=== PATIENT | female | born 1955 | race African-American/Black ===

== ENCOUNTER 2016-06-21 09:05 | Inpatient (IN) ==
[2016-06-21] MEDS ORDERED: MAGNESIUM SULF RIDER 2 GM in PREMIX 1 EACH IV PRN ×2 (09:11→14:25)
[2016-06-21] MEDS ORDERED: MAGNESIUM SULF RIDER 4 GM in PREMIX 1 EACH IV PRN ×2 (09:11→14:25)
[2016-06-21] MEDS ORDERED: ACETAMINOPHEN 325 MG TABLET PO PRN (09:11)
[2016-06-21] MEDS ORDERED: ZALEPLON 5 MG CAPSULE PO PRN (09:11)
[2016-06-21] MEDS ORDERED: ONDANSETRON 4 MG/2 ML VIAL IV PRN (09:11)
[2016-06-21 12:32] LABS: Basophils % 0.5 % (0.0-0.8); Eosinophils # 0.1 10*3/uL (0.0-0.87); Eosinophils % 1.9 % (0.00-10.9); Hematocrit 45.4 VOL% (35.7-47.0); Hemoglobin 14.6 GM/DL (12.0-16.0); Immature Granulocytes % 0.3 %; Immature Granulocytes Absolute 0.01 #; Lymphocytes # 1.4 10*3/uL (1.4-4.0); Mean Corpuscular HGB Conc 32.2 GM/DL (32-36); Mean Corpuscular Hemoglobin 27 PG (27-34); Mean Corpuscular Volume 83.3 FL (87-102); Mean Platelet Volume 9.8 FL (9.6-12.0); Monocytes # 0.5 10*3/uL (0.11-0.8); Monocytes % 13.6 % (1.7-12.7); Neutrophils # 1.6 10*3/uL (1.4-7.4); Neutrophils % 44.7 % (38.7-73.9); Platelet Count 174 T/CUMM (130-400); Red Blood Count 5.45 MC/CUMM (3.8-5.5); Red Cell Distribution Width 16.5 % (9.3-17.3); White Blood Count 3.7 T/CUMM (4-12)
--- NOTE | 2016-06-21 13:11 | XRay Report ---
XR chest 2V Indication: Shortness of breath. Chest 2 views: Comparison 05/02/2016. Small bilateral pleural effusions are unchanged from the prior exam. There is continued reticular prominence of the lung travis diffusely, without focal infiltrate present. Bibasilar atelectasis persists. Cardiomegaly, prosthetic mitral valve and postoperative changes median sternotomy are stable. Impression: Overall no change from 05/02/2016. Favor chronic or recurrent CHF with stable small bilateral pleural effusions. PROCEDURE INTERPRETED AT [facility] DEPARTMENT OF RADIOLOGY Final Report Signed by: Zeke Pacheco M.D.
[2016-06-21 13:17] LABS: Calcium 9.1 MG/DL (8.5-10.1); Magnesium 1.6 MG/DL (1.8-2.4); Osmolality,Calculated 278.3 MOS/KG (273-304); Potassium 3.7 MMOL/L (3.5-5.1); Thyroid Stimulating Hormone 1.18 uIU/ml (0.358-3.74)
--- NOTE | 2016-06-21 14:39 | Cardiology History & Physical ---
Assessment and Plan - Time spent with patient Time spent with patient: Greater than 30 minutes (1) History of mitral valve replacement with bioprosthetic valve Status: Chronic Assessment and plan: SEE CURRENT PLAN OF CARE LISTED BELOW Current Visit: Yes (2) Ischemic dilated cardiomyopathy Status: Chronic Assessment and plan: SEE CURRENT PLAN OF CARE LISTED BELOW Current Visit: Yes (3) CHF (congestive heart failure), NYHA class IV Status: Acute Assessment and plan: SEE CURRENT PLAN OF CARE LISTED BELOW Current Visit: Yes Qualifiers: Congestive heart failure type: systolic Congestive heart failure chronicity : acute on chronic Qualified Code(s): I50.23 - Acute on chronic systolic ( congestive) heart failure (4) COPD (chronic obstructive pulmonary disease) Status: Chronic Assessment and plan: SEE CURRENT PLAN OF CARE LISTED BELOW Current Visit: Yes (5) Dyslipidemia Status: Chronic Assessment and plan: SEE CURRENT PLAN OF CARE LISTED BELOW Current Visit: Yes (6) Atrial fibrillation Status: Chronic Assessment and plan: SEE CURRENT PLAN OF CARE LISTED BELOW Current Visit: No Qualifiers: Atrial fibrillation type: paroxysmal Qualified Code(s): I48.0 - Paroxysmal atrial fibrillation (7) Coronary artery disease Status: Chronic Assessment and plan: SEE CURRENT PLAN OF CARE LISTED BELOW Current Visit: No Qualifiers: Coronary Disease-Associated Artery/Lesion type: [place] artery [place] vs. transplanted heart: [place] heart Associated angina: without angina Qualified Code(s): I25.10 - Atherosclerotic heart disease of [place] coronary artery without angina pectoris (8) Pleural effusion Status: Chronic Assessment and plan: SEE CURRENT PLAN OF CARE LISTED BELOW Current Visit: Yes History of Present Illness Chief complaint: acute on chronic congestive heart failure History of present illness: Ms. Schmidt is a 61 year old female routinely followed by Dr. Gerber. Risk factors include: Known coronary artery disease dyslipidemia. She has a history of chronic atrial fibrillation, ischemic cardiomyopathy (EF 10%), COPD, chronic congestive heart failure, non-rheumatic mitral regurgitation now status post mitral valve replacement. Patient was seen in Dr. Gerber's office today and she's been directly admitted from his clinic. She has been having symptoms of acute congestive heart failure. She has been escalating her diuretics, added Zaroxolyn recently but continued to have severe dyspnea, and swelling of her lower extremities and orthopnea. Patient underwent mitral valve replacement in July [address] Torres. Since that surgery she has done poorly. She's had a persistent pleural effusion (left) at which point Dr. Gerber actually performed a thoracentesis twice to see performed heart. At one point, she required a Pleurx drain for approximately 5 months until the draining halted. At this point, after being evaluated in Dr. Gerber's office she's been directed to telemetry here at [facility]. She's had 4 pillow orthopnea. Although her edema seems to be better today she reports at one point it was extending up into her abdomen. At this point it is too her pelvis area to her toes. She is having some shortness of breath. She denies having chest pain, heaviness or tightness. She does have jugular vein distention of 6 cm to the jaw. ASSESSMENT/PLAN: 1. CHF - acute on chronic congestive heart failure secondary to severely reduced LVEF, 10%. Heart Association classification IV. She is been hospitalized on telemetry unit where she will receive IV Lasix, oral Zaroxolyn and may consider addition of spironolactone. Strict intake and output, daily weights will be reported. She is taking a low-dose LUCERO inhibitor and low-dose beta too. I will order an echocardiogram as in the past she has had a pericardial effusion and we' ll verify this is not reaccumulated. 2. ICM - EF 10%. 3. CAD - S/P CABG 07/07/2015 RODRIGUEZ to [facility]. (Heart catheterization July 2015 revealed 3 vessel coronary artery disease with suboptimal targets for revascularization). 4. DYSLIPIDEMIA - continue lipid-lowering agent. 5. EDEMA - suspect this is all fluid however we'll check venous ultrasound bilateral extremity as she has had left lower extremity edema greater than right 6. PAF - history paroxysmal atrial fibrillation. She is maintained on aspirin in the past for stroke prevention. She has a prior history of anemia. We can monitor this during the hospital stay and may consider adding something more potent stroke prevention 7. COPD - continue home medications including Combivent 8. S/P MITRAL VALVE REPLACEMENT (TISSUE VALVE) - patient had severe mitral regurgitation. She underwent valve replacement 07/07/2015. 9. BILATERAL PLEURAL EFFUSIONS - component of this is definitely chronic pleural effusions. In the past, the left is been greater than the right. We' ll continue with diuresing and monitor accordingly. Home Medications Medication Instructions Recorded Confirmed Type Ferrous Sulfate 325 mg PO DAILY 06/15/15 09/28/15 History Colchicine 0.6 mg PO BID 08/23/15 09/28/15 History Multivitamin (Ocuvite) [Ocuvite] 1 tablet PO DAILY 08/23/15 09/28/15 History Aspirin EC Tab 81 mg PO DAILY tablet 08/26/15 09/28/15 Rx Lisinopril [Prinivil] 2.5 mg PO DAILY #30 tablet 08/26/15 09/28/15 Rx Pantoprazole Tab [Protonix Tab] 40 mg PO DAILY tablet 08/26/15 09/28/15 Rx Docusate Sodium Cap [Colace Cap] 100 mg PO DAILY 09/28/15 09/28/15 History Allergies Allergy/AdvReac Type Severity Reaction Status Date / Time No Known Allergies Allergy Verified 06/15/15 16:14 Review of systems: REVIEW OF SYSTEMS: - Constitutional Constitutional: Present: Fatigue. Absent: syncope, anorexia, night sweats - EENT Eyes: Absent: blurry vision, loss of vision, diplopia Ears: Absent: decreased hearing, ear pain, ear discharge - Cardiovascular Cardiovascular: Denies chest pain with exertion. Acknowledges orthopnea, shortness of breath at rest and with exertion, denies palpitations. Edema to her abdomen recently. Now edema has improved but persists and extends from her pelvic area to toes. Denies palpitations. - Respiratory Respiratory: Present: FISH, 4 pillow orthopnea. Denies cough Absent: wheezing, hemoptysis, change in phlegm color - Gastrointestinal Gastrointestinal: Denies constipation. Absent: abdminal pain, hematemesis, hematochezia, melena, change in bowel habits, nausea - Genitourinary Genitourinary: Absent: difficulty urinating, dysuria, urinary hesitancy, flank pain - Musculoskeletal Musculoskeletal: Present: back pain Absent: joint swelling, muscle cramps, muscle weakness - Neurological Neurological: Present: normal gait without frequent falls. Absent: dizziness, hemiparesis - Psychiatric Psychiatric: Absent: anxiety, depression, difficulty concentrating - Endocrine Endocrine: Present: fatigue. Absent: cold intolerance, heat intolerance, polyuria, polyphagia, polydipsia - Hematologic/Lymphatic Hematologic/Lymphatic: Present: easy bruising. Absent: easy bleeding, easy bruisability -Integumentary Integumentary: Absent: lesions, rashes, skin breakdown Medical,Surgical,& Family Hx - Medical History Cardio: History of: Cardiac Dysrhythmia (a fib), CHF, CAD, Hypertension, Valvular Heart Disease Neurology: History of: Brain Aneurysm (2000), Cerebrovascular Accident (2000) No history of: Seizures Rheumatology: History of;: Gout Respiratory: History of: Respiratory Problems (thoracentesis 09/28/2015) Hematology: History of: Anemia - Surgical History Cardiac Surgeries: Sugical HX of: Cardiac Surgery (CABG and MVR 07/2015) Neurologic Surgeries: Surgical HX of: Brain Aneurysm (2000), Neurologic Surgery (brain aneurism repair in [place] 2002) Reproductive Surgeries: Surgical HX of;: Hysterectomy - Family History Family History: Reports;: Family Cancer, Family Diabetes, Family Heart Disease, Family Hypertension - Social History Smoking Status: Current every day smoker Frequency of Alcohol Use: None Marital Status: Lives With:: Spouse Functional capacity: independent ambulation Cardiology Physical Exam - Constitutional Vitals: Vital Signs Temp Pulse Resp BP Pulse Ox 97 F L 92 H 20 103/77 98 06/21/16 12:21 06/21/16 12:21 06/21/16 12:21 06/21/16 12:21 06/21/16 12:21 Intake and Output 06/20/16 06/21/16 06/21/16 23:59 07:59 15:59 Other: Weight 58.967 kg Patient Weight 06/21/16 23:59 Weight 58.967 kg Exam: General: Appears well with no apparent distress. Pleasant and cooperative. Appears comfortable. HEENT: PERRL, normocephalic, atraumatic. Mucous membranes moist. No jaundice noted. Conjunctiva moist and clear, sclerae anicteric Neck: 6 cm JVD/HJR, no thyromegaly or lymphadenopathy noted. No carotid bruit appreciated Cardiac: Irregularly irregular rhythm. Soft HSM heard best at 5ICS left. Lungs: Respiratory crackles noted in the bases posteriorly. Mild end expiratory wheezes noted. Using oxygen intermittently Abdomen: Soft, bowel sounds normoactive. Nontender and nondistended. No abdominal bruit or thrill noted. No masses noted. Musculoskeletal: No fluid collection. Decreased range of motion is noted. Extremities: No clubbing, cyanosis noted. 3+ pitting edema lower extremities extending to her pelvic area 1+. Capillary refill less than 3 seconds. Skin: No unusual lesions or rashes. No skin breakdown appreciated. Neuro: Awake, alert and oriented 3. Moves all extremities well without hemiparesis or paralysis. No essential tremor is appreciated. Result/EKG - Labs CBC & BMP: 06/21/16 12:26 06/21/16 12:26 Lab Results: I have reviewed the past 24 hour labs Labs: Laboratory Results - last 24 hr 06/21/16 06/21/16 06/21/16 12:26 12:26 12:26 WBC 3.7 L RBC 5.45 Hgb 14.6 Hct 45.4 MCV 83.3 L MCH 27 MCHC 32.2 RDW 16.5 Plt Count 174 MPV 9.8 Neut % (Auto) 44.7 Lymph % (Auto) 39.0 [place] % (Auto) 13.6 H Eos % (Auto) 1.9 Baso % (Auto) 0.5 Neut # (Auto) 1.6 Lymph # (Auto) 1.4 [place] # (Auto) 0.5 Eos # (Auto) 0.1 Baso # (Auto) 0.0 Immature Gran % 0.3 Nucleated RBC % 0.0 Immature Gran # 0.01 Nucleated RBCs # 0.00 Sodium 141 Potassium 3.7 Chloride 99 Carbon Dioxide 33 H Anion Gap 12.7 BUN 10 Creatinine 0.90 GFR Calculation 0 BUN/Creatinine Ratio 11.00 Glucose 85 Calculated Osmolality 278.3 Calcium 9.1 Magnesium 1.6 L B-Natriuretic Peptide Free T4 1.17 TSH 3rd Generation 1.180 06/21/16 12:26 WBC RBC Hgb Hct MCV MCH MCHC RDW Plt Count MPV Neut % (Auto) Lymph % (Auto) [place] % (Auto) Eos % (Auto) Baso % (Auto) Neut # (Auto) Lymph # (Auto) [place] # (Auto) Eos # (Auto) Baso # (Auto) Immature Gran % Nucleated RBC % Immature Gran # Nucleated RBCs # Sodium Potassium Chloride Carbon Dioxide Anion Gap BUN Creatinine GFR Calculation BUN/Creatinine Ratio Glucose Calculated Osmolality Calcium Magnesium B-Natriuretic Peptide 2969 H Free T4 TSH 3rd Generation - Diagnostic Findings Procedure: Chest x-ray: report reviewed by me - EKG EKG results: interpreted by me EKG shows: atrial fibrillation
[2016-06-21] MEDS ORDERED: INFLUENZA VIRUS VACCINE 0.5 ML SYRINGE IM ONE (15:00)
--- NOTE | 2016-06-21 15:24 | Ultrasound Report ---
History: Bilateral lower extremity edema Date: 06/21/2016 Study: Bilateral lower extremity color-flow venous Doppler study Comparison exam: No previous Color Doppler, wave form analysis, and compression analysis of the deep veins of both lower extremities from the common femoral vein level through the popliteal vein level shows that the veins are readily compressible. There is no abnormal intraluminal material to suggest thrombus. Waveform analysis is unremarkable. Ultrasound images were captured and archived Impression: No evidence of deep venous thrombosis. No focal abnormality seen PROCEDURE INTERPRETED AT [facility] DEPARTMENT OF RADIOLOGY Final Report Signed by: Dr. Hali Dennis
[2016-06-21] MEDS: FUROSEMIDE 40 MG/4 ML VIAL IV SCH (15:40)
[2016-06-21] MEDS ORDERED: FUROSEMIDE 40 MG/4 ML VIAL IV SCH (16:00)
[2016-06-21 16:32] LABS: Apearance,Urine CLEAR (Clear); Bilirubin,Urine Negative (Negative); Blood, Urine Negative (Negative); Glucose,Urine (UA) Negative (Negative); Hyaline Casts,Urine 3 /LPF (0-3); Ketones,Urine Negative (Negative); Nitrite,Urine Negative (Negative); Protein,Urine Negative; RBC,Urine <1 /HPF (0-4); Squamous Epithelial Cell,Urine Occasional /HPF (0-10); Urine Color Straw (Yellow); Urine Specific Gravity 1.005 (1.001-1.035); Urine Urobilinogen < 2.0 EU/DL (0.2-1.0); WBC,Urine 1 /HPF (0-6)
--- NOTE | 2016-06-21 17:18 | ECHO Report ---
Philly Schmidt Exam Date: 06/21/2016 13:09 Referring Physician: Technologist: Julianne Hollins RDCS Age: 61 Ht (in): Wt (lb): Gender: F Exam Location: [facility] Echo Indications: MVR - pericardial prothesis, CXR - small bilateral pleural effusions, Cardiomegaly, Shortness of breath, Cardiomyopathy, unspecified BP: / HR: Rhythm: Sinus Technical Quality: Good IMPRESSIONS Moderate to severe increased left ventricular cavity size. Mild left ventricular hypertrophy. Left ventricular ejection fraction is estimated at 10 - 15 %. Moderately decreased right ventricular systolic function. Mildly increased right ventricular size. Moderately increased right atrial size. Moderately increased left atrial size. Prosthetic mitral valve mean gradient is 5 mmHg at a heart rate of 45 bpm[bioprosthesis]. Trace to mild mitral valve regurgitation. Aortic valve sclerosis without stenosis. Trace aortic valve regurgitation. [id number] tricuspid valve regurgitation. Tricuspid regurgitation velocities suggest a PAP of 57 mmHg. Mild pulmonary valve regurgitation. Trivial pericardial effusion. MEASUREMENTS (Male / Female) Normal Values 2D ECHO LV Diastolic Diameter PLAX 6.2 cm 4.2 - 5.9 / 3.9 - 5.3 cm LV Systolic Diameter PLAX 6.2 cm LV Fractional Shortening PLAX 0.0 % IVS Diastolic Thickness 1.1 cm 0.6 - 1.0 / 0.6 - 0.9 cm LVPW Diastolic Thickness 1.1 cm 0.6 - 1.0 / 0.6 - 0.9 cm RV Internal Dim ED PLAX 4.1 cm Aortic Root Diameter 2.9 cm LA Systolic Diameter LX 4.8 cm 3.0 - 4.0 / 2.7 - 3.8 cm DOPPLER TR Peak Velocity 341.0 cm/s TR Peak Gradient 46.5 mmHg FINDINGS Left Ventricle Moderate to severe increased left ventricular cavity size. Mild left ventricular hypertrophy. Left ventricular ejection fraction is estimated at 10 - 15 %. Right Ventricle Mildly increased right ventricular size.moderately decreased right ventricular systolic function. Right Atrium Moderately increased right atrial size. Left Atrium Moderately increased left atrial size. Mitral Valve Prosthetic mitral valve mean gradient is 5 mmHg at a heart rate of 45 bpm[bioprosthesis]. Trace to mild mitral valve regurgitation. Aortic Valve Aortic valve sclerosis without stenosis. Trace aortic valve regurgitation. Tricuspid Valve Morphologically normal tricuspid valve. [id number] tricuspid valve regurgitation. Tricuspid regurgitation velocities suggest a PAP of 57 mmHg. Pulmonic Valve Morphologically normal pulmonic valve. Mild pulmonary valve regurgitation. Pericardium Trivial pericardial effusion. Aorta Normal ascending aorta dimension. Lucas Haro MD (Electronically Signed) Final Date: 21 June 2016 17:17
[2016-06-21] MEDS ORDERED: DOCUSATE SODIUM 100 MG CAPSULE PO SCH (21:00)
[2016-06-21] MEDS: CARVEDILOL 3.125 MG TABLET PO SCH (21:55)
[2016-06-21] MEDS: COLCHICINE 0.6 MG TABLET PO SCH (21:56)
[2016-06-21] MEDS: POTASSIUM CHLORIDE 20 MEQ TABLET PO SCH (21:56)
[2016-06-21] MEDS ORDERED: BACLOFEN 10 MG TABLET PO ONE (23:24)
[2016-06-21] MEDS ORDERED: BACLOFEN 10 MG TABLET PO PRN (23:26)
[2016-06-22 06:17] LABS: Basophils % 0.9 % (0.0-0.8); Eosinophils # 0.1 10*3/uL (0.0-0.87); Eosinophils % 1.8 % (0.00-10.9); Hematocrit 43.5 VOL% (35.7-47.0); Immature Granulocytes % 0.3 %; Immature Granulocytes Absolute 0.01 #; Lymphocytes # 1.1 10*3/uL (1.4-4.0); Lymphocytes % 33.6 % (21.3-54.2); Mean Corpuscular HGB Conc 32.2 GM/DL (32-36); Mean Corpuscular Hemoglobin 27 PG (27-34); Mean Corpuscular Volume 84.1 FL (87-102); Mean Platelet Volume 9.9 FL (9.6-12.0); Monocytes # 0.5 10*3/uL (0.11-0.8); Monocytes % 13.6 % (1.7-12.7); Neutrophils # 1.7 10*3/uL (1.4-7.4); Neutrophils % 49.8 % (38.7-73.9); Platelet Count 145 T/CUMM (130-400); Red Blood Count 5.17 MC/CUMM (3.8-5.5); Red Cell Distribution Width 16.6 % (9.3-17.3); White Blood Count 3.4 T/CUMM (4-12)
[2016-06-22 06:39] LABS: Elliptocytes Few; Hypochromasia 1+; Platelet Estimate Normal
[2016-06-22 08:24] LABS: Calcium 8.4 MG/DL (8.5-10.1); Free T4 (Free Thyroxine) 1.2 NG/DL (0.76-1.46); Magnesium 1.9 MG/DL (1.8-2.4); Osmolality,Calculated 281.1 MOS/KG (273-304); Potassium 4.1 MMOL/L (3.5-5.1); Thyroid Stimulating Hormone 0.779 uIU/ml (0.358-3.74)
[2016-06-22] MEDS ORDERED: HYDROmorphone 2 MG/1 ML VIAL IV PRN (09:00)
[2016-06-22] MEDS ORDERED: LISINOPRIL 2.5 MG TABLET PO SCH (09:00)
[2016-06-22] MEDS ORDERED: PANTOPRAZOLE 40 MG TABLET PO SCH (09:00)
[2016-06-22] MEDS: MULTIVITAMIN (OCUVITE) TABLET PO SCH (09:22)
[2016-06-22] MEDS: ASPIRIN EC 81 MG TABLET PO SCH (09:22)
[2016-06-22] MEDS: CARVEDILOL 3.125 MG TABLET PO SCH ×2 (09:22→21:57)
[2016-06-22] MEDS: FERROUS SULFATE 325 MG TABLET PO SCH (09:22)
[2016-06-22] MEDS: COLCHICINE 0.6 MG TABLET PO SCH ×2 (09:22→21:58)
[2016-06-22] MEDS: PANTOPRAZOLE 40 MG TABLET PO SCH (09:22)
[2016-06-22] MEDS: DOCUSATE SODIUM 100 MG CAPSULE PO SCH (09:22)
[2016-06-22] MEDS: ENOXAPARIN 40 MG/0.4 ML SYRINGE SUBCUT SCH ×2 (09:23→12:56)
[2016-06-22] MEDS: POTASSIUM CHLORIDE 20 MEQ TABLET PO SCH ×2 (09:23→21:57)
[2016-06-22] MEDS: FUROSEMIDE 40 MG/4 ML VIAL IV SCH ×2 (10:07→16:59)
[2016-06-22] MEDS ORDERED: NICOTINE 14 MG/24 HR PATCH TRANSDERM SCH (10:30)
[2016-06-22] MEDS: metOLazone 5 MG TABLET PO SCH (13:17)
[2016-06-22] MEDS: LISINOPRIL 2.5 MG TABLET PO SCH (13:19)
[2016-06-22] MEDS: buPROPion 75 MG TABLET PO SCH ×2 (13:24→21:58)
--- NOTE | 2016-06-22 15:36 | Cardiology Progress Note ---
Shelbie Chase April RN, am scribing for, and in the presence of, Lucas Haro MD 15:32. Assessment and Plan (1) Systolic CHF Status: Acute Current Visit: Yes (2) CHF (congestive heart failure), NYHA class IV Status: Acute Current Visit: Yes Qualifiers: Congestive heart failure type: systolic Congestive heart failure chronicity : acute on chronic Qualified Code(s): I50.23 - Acute on chronic systolic ( congestive) heart failure (3) COPD (chronic obstructive pulmonary disease) Status: Chronic Current Visit: Yes (4) Dyslipidemia Status: Chronic Current Visit: Yes (5) History of mitral valve replacement with bioprosthetic valve Status: Chronic Assessment and plan: Mitral valve replacement using a 27 mm pericardial prosthesis and coronary bypass grafting with the left internal mammary graft placed to the anterior descending coronary artery as a free graft. This was done 07/07/15. Current Visit: Yes (6) Ischemic dilated cardiomyopathy Status: Chronic Assessment and plan: EF 10-15% by ECHO 06/21/16. Current Visit: Yes (7) Pleural effusion Status: Chronic Current Visit: Yes (8) Atrial fibrillation Status: Chronic Current Visit: No Qualifiers: Atrial fibrillation type: paroxysmal Qualified Code(s): I48.0 - Paroxysmal atrial fibrillation (9) Coronary artery disease Status: Chronic Current Visit: No Qualifiers: Coronary Disease-Associated Artery/Lesion type: [place] artery [place] vs. transplanted heart: [place] heart Associated angina: without angina Qualified Code(s): I25.10 - Atherosclerotic heart disease of [place] coronary artery without angina pectoris (10) Smoker Status: Acute Current Visit: Yes (11) Severe mitral regurgitation Status: Acute Current Visit: No (12) Bioprosthetic mitral valve replacement, current hospitalization Status: Chronic Current Visit: No (13) Cardiomyopathy Status: Chronic Current Visit: No (14) Hypotension Status: Resolved Current Visit: No Cardiology - PN: Subj Interval history: Seen today on telemetry unit, she is routinely followed by Dr. Figueroa. She has a history of chronic atrial fibrillation, ischemic cardiomyopathy, COPD, chronic congestive heart failure, she is status post mitral valve replacement in July 2015. Since her valve replacement, she has had a persistent pleural effusion and has had thoracentesis twice, and at one point required a drain for about 5 months until the draining stopped. She was direct admitted from Dr. Figueroa's office yesterday after she presented with severe dyspnea, swelling of her lower extremities, and orthopnea. ECHO done yesterday with EF 10-15%. Venous dopplers of her lower extremities were negative. Today she reports her swelling is improved. She denies any shortness of breath, but also tells me that she did not have any shortness of breath yesterday. She does not appear dyspneic today. She denies any chest pain or palpitations. She does report having some dizziness. Her blood pressures have been low, and we are decreasing her dose of lisinopril. Her kidney function and electrolytes are stable and the diuretics appear to be helping so we will continue those for now. She continues to smoke nearly a pack of cigarettes a day. Discussed cessation with her and she requested meds and/or a patch to help, Bupropion po and Nicotine patch initiated. Exam (Progress Note) - Constitutional Vitals: Period Temp Pulse Resp BP Sys/Bower Pulse Ox Last 24 Hr 97.3 F-98.9 F 70-92 17-20 77-107/47-69 94-96 General appearance: no acute distress - Head Head exam: Absent: abrasion, hematoma - Neck Neck exam: Absent: tenderness - Respiratory Respiratory exam: Present: clear to auscultation bilaterally, other (using oxygen intermittently). Absent: accessory muscle use, chest wall tenderness - Cardiovascular Cardiovascular exam: Present: irregular rhythm - GI/Abdominal GI/Abdominal exam: Present: normal bowel sounds, soft. Absent: distended, tenderness - Extremities Exam Extremities exam: Present: edema (1+ to ble) - Neurological Exam Neurological exam: Present: alert, oriented X3 - Psychiatric Psychiatric exam: Present: normal affect, normal mood - Skin Skin exam: Present: warm, dry Result/EKG - Labs CBC & BMP: 06/22/16 05:29 06/22/16 05:29 Lab Results: I have reviewed the past 24 hour labs Labs: Laboratory Results - last 24 hr 06/21/16 06/21/16 06/21/16 12:26 12:26 Unknown WBC RBC Hgb Hct MCV MCH MCHC RDW Plt Count MPV Neut % (Auto) Lymph % (Auto) [place] % (Auto) Eos % (Auto) Baso % (Auto) Neut # (Auto) Lymph # (Auto) [place] # (Auto) Eos # (Auto) Baso # (Auto) Immature Gran % Nucleated RBC % Immature Gran # Nucleated RBCs # Platelet Estimate Hypochromasia Elliptocytes Sodium 141 Potassium 3.7 Chloride 99 Carbon Dioxide 33 H Anion Gap 12.7 BUN 10 Creatinine 0.90 GFR Calculation 0 BUN/Creatinine Ratio 11.00 Glucose 85 Calculated Osmolality 278.3 Calcium 9.1 Magnesium 1.6 L B-Natriuretic Peptide 2969 H Free T4 TSH 3rd Generation 1.180 Urine Color Straw Urine Appearance Clear Urine pH 5.0 Ur Specific [place] 1.005 Urine Protein Negative Urine Glucose (UA) Negative Urine Ketones Negative Urine Blood Negative Urine Nitrate Negative Urine Bilirubin Negative Urine Urobilinogen < 2.0 H Urine Leukocytes Negative Urine RBC <1 Urine WBC 1 Ur Squamous Epith Cells Occasional Hyaline Casts 3 Ur Culture Indicated? Not indicated 06/22/16 06/22/16 06/22/16 05:29 05:29 05:29 WBC 3.4 L RBC 5.17 Hgb 14.0 Hct 43.5 MCV 84.1 L MCH 27 MCHC 32.2 RDW 16.6 Plt Count 145 MPV 9.9 Neut % (Auto) 49.8 Lymph % (Auto) 33.6 [place] % (Auto) 13.6 H Eos % (Auto) 1.8 Baso % (Auto) 0.9 H Neut # (Auto) 1.7 Lymph # (Auto) 1.1 L [place] # (Auto) 0.5 Eos # (Auto) 0.1 Baso # (Auto) 0.0 Immature Gran % 0.3 Nucleated RBC % 0.0 Immature Gran # 0.01 Nucleated RBCs # 0.00 Platelet Estimate Normal Hypochromasia 1+ Elliptocytes Few Sodium 142 Potassium 4.1 Chloride 103 Carbon Dioxide 25 Anion Gap 18.1 H BUN 12 Creatinine 0.90 GFR Calculation 75 BUN/Creatinine Ratio 13.00 Glucose 76 Calculated Osmolality 281.1 Calcium 8.4 L Magnesium 1.9 B-Natriuretic Peptide 1315 H Free T4 1.20 TSH 3rd Generation 0.779 Urine Color Urine Appearance Urine pH Ur Specific [place] Urine Protein Urine Glucose (UA) Urine Ketones Urine Blood Urine Nitrate Urine Bilirubin Urine Urobilinogen Urine Leukocytes Urine RBC Urine WBC Ur Squamous Epith Cells Hyaline Casts Ur Culture Indicated? - EKG EKG results: interpreted by tx EKG shows: atrial fibrillation ITahir Dale, MD, personally performed the services described in this documentation, ascribed by Marah Morfin RN in my presence, and it is both accurate and complete 532 .
[2016-06-23 05:46] LABS: Albumin 2.9 G/DL (3.4-5.0); Bilirubin,Total 0.9 MG/DL (0.2-1.0); Calcium 8.2 MG/DL (8.5-10.1); Osmolality,Calculated 282.1 MOS/KG (273-304); Potassium 3.9 MMOL/L (3.5-5.1); Total Protein 5.9 G/DL (6.4-8.3)
--- NOTE | 2016-06-23 10:53 | Discharge Summary ---
Hospital Course - Hospital Course Hospital Course: Ms. Schmidt is a 61 year old female routinely followed by Dr. Figueroa. Risk factors include: Known coronary artery disease dyslipidemia. She has a history of chronic atrial fibrillation, ischemic cardiomyopathy (EF 10%), COPD, chronic congestive heart failure, non-rheumatic mitral regurgitation now status post mitral valve replacement. Patient was seen in Dr. Figueroa's office 06/21/2016 where she was evaluated and felt as if she needed to be admitted to the hospital. She had complaints concerning for acute worsening of her congestive heart failure. She had been escalating her diuretics, Zaroxolyn had recently been initiated as well. ECHO done June with EF 10-15%. Venous dopplers of her lower extremities were negative. Patient diuresed well during the hospital stay. This morning, having felt that maximal medical therapy, she's been discharged home in stable condition. She diuresed well with IV Lasix. Having tells met maximal medical therapy, patient is being discharged home in stable condition. His been given a 2 week follow-up appointment with Dr. Gerber. At that visit on labs be obtained, BMP, magnesium and CBC. Discharge meds include the following changes: Lasix increased from 40 mg daily to 40 mg twice a day. Lisinopril was decreased due to hypotension. Zaroxolyn was changed from daily dosing to 5 mg every Sunday, Sunday and Sunday. Spironolactone discontinued as she was expecting some hypotension seemed to respond better to Lasix. - Time spent with patient Time with patient DS: Greater than 30 minutes Diagnosis - Discharge Diagnosis (1) History of mitral valve replacement with bioprosthetic valve Status: Chronic (2) Ischemic dilated cardiomyopathy Status: Chronic (3) CHF (congestive heart failure), NYHA class IV Status: Resolved (4) COPD (chronic obstructive pulmonary disease) Status: Chronic (5) Dyslipidemia Status: Chronic (6) Atrial fibrillation Status: Chronic (7) Coronary artery disease Status: Chronic (8) Pleural effusion Status: Chronic Specialty Discharge - Follow Up or Referrals Follow up with: Carina Figueroa DO [Physician] - 2 Weeks (BMP, Mg, CBC) Discharge Plan - Discharge Data Disposition: Disch To Home/Self Care Condition at Discharge: Stable Discharge Diet: heart healthy Activity: resume usual activities as tolerated Hygiene: no restrictions Weight Bearing at Discharge: full weight bearing Driving: not until seen by doctor Contact your physician if you experience:: fever over 101, Difficulty voiding, Redness or swelling, Nausea/Vomiting, Shortness of breath, Bleeding, pain uncontrolled by pain medications - Discharge Medications New buPROPion [Wellbutrin] 75 mg PO BID tablet Baclofen Tab [Lioresal] 5 mg PO TID PRN #30 tablet PRN Reason: Muscle Spasm Colchicine [Colcrys] 0.6 mg PO BID #30 tablet Furosemide 40 mg PO BID #60 tablet Nicotine 14 mg/24 Hr Patch [Nicoderm CQ 14 mg/24 hr Patch] 1 patch TRANSDERM DAILY #30 patch metOLazone [Zaroxolyn] 5 mg PO DIRECTED #12 tablet Continue Ferrous Sulfate 325 mg PO DAILY Aspirin EC Tab 81 mg PO DAILY tablet Lisinopril [Prinivil] 2.5 mg PO DAILY #30 tablet Docusate Sodium Cap [Colace Cap] 100 mg PO DAILY Montelukast Tab [Singulair Tab] 10 mg PO BEDTIME Carvedilol 3.125 mg PO BID Cyproheptadine Tab [Periactin Tab] 4 mg PO TID W/MEALS Discontinued Furosemide [Furosemide] 40 mg PO DAILY Spironolactone 12.5 mg PO DAILY - Follow Up or Referral - Forms/Instructions Exam - Constitutional Vitals: Period Temp Pulse Resp BP Sys/Bower Pulse Ox Last 24 Hr 96.0 F-97.8 F 82-91 16-20 81-121/61-68 94-96 Exam: General: Appears well with no apparent distress. Pleasant and cooperative. Appears comfortable. HEENT: PERRL, normocephalic, atraumatic. Mucous membranes moist. No jaundice noted. Conjunctiva moist and clear, sclerae anicteric Neck: Difficult to assess for JVD due to habitus. No carotid bruit appreciated Cardiac: Irregularly irregular rhythm. No murmur rub or gallop. Lungs: Lungs relatively clear without accessory muscle use to assist the respiratory pattern. Not requiring oxygen. Abdomen: Soft, bowel sounds normoactive. Nontender and nondistended. No abdominal bruit or thrill noted. No masses noted. Musculoskeletal: No fluid collection. Decreased range of motion is noted. Extremities: No clubbing, cyanosis noted. No edema noted. Upper extremity pulses 2+. Lower extremity pulses 2+. Capillary refill less than 3 seconds. Skin: No unusual lesions or rashes. No skin breakdown appreciated. Neuro: Awake, alert and oriented 3. Moves all extremities well without hemiparesis or paralysis. No essential tremor is appreciated. Discharge Results Labs on day of discharge: Labs from last 24 hours 06/23/16 04:40 Sodium 142 Potassium 3.9 Chloride 101 Carbon Dioxide 33 H Anion Gap 11.9 BUN 14 Creatinine 0.80 GFR Calculation 86 BUN/Creatinine Ratio 17.00 Glucose 76 Calculated Osmolality 282.1 Calcium 8.2 L Total Bilirubin 0.90 AST 11 ALT 14 Alkaline Phosphatase 85 Total Protein 5.9 L Albumin 2.9 L Globulin 3.0 Albumin/Globulin Ratio 0.9 L - Imaging and Cardiology Cardiology Procedure: report reviewed by Procedure: Chest x-ray: report reviewed by DS: Provider Date of admission: 06/21/16 11:37 Primary care physician: Austin Cartwright Attending physician on admission: Carina Figueroa DO Discharging clinician: Jacque Acevedo NP Expected date of discharge: 06/23/16
[2016-06-23] MEDS: FUROSEMIDE 40 MG/4 ML VIAL IV SCH (11:00)
[2016-06-23] MEDS: POTASSIUM CHLORIDE 20 MEQ TABLET PO SCH (11:02)
[2016-06-23] MEDS: COLCHICINE 0.6 MG TABLET PO SCH (11:02)
[2016-06-23] MEDS: buPROPion 75 MG TABLET PO SCH (11:03)
[2016-06-23] MEDS: ASPIRIN EC 81 MG TABLET PO SCH (11:03)
[2016-06-23] MEDS: FERROUS SULFATE 325 MG TABLET PO SCH (11:03)
[2016-06-23] MEDS: DOCUSATE SODIUM 100 MG CAPSULE PO SCH (11:04)
[2016-06-23] MEDS: MULTIVITAMIN (OCUVITE) TABLET PO SCH (11:04)
[2016-06-23] MEDS: CARVEDILOL 3.125 MG TABLET PO SCH (11:04)
[2016-06-23] MEDS: PANTOPRAZOLE 40 MG TABLET PO SCH (11:04)
[2016-06-23] MEDS: ENOXAPARIN 40 MG/0.4 ML SYRINGE SUBCUT SCH (11:06)
[2016-06-23 12:25] VITALS: BP 97/70
[2016-06-23] MEDS: LISINOPRIL 2.5 MG TABLET PO SCH (12:51)
[2016-06-23] MEDS: metOLazone 5 MG TABLET PO SCH (12:51)
== END 2016-06-23 13:25 | disposition home or self-care (01) | DRG 292 ==
LOC: N.TELEN 11:37
PROVIDERS: ADMIT Internal Medicine Cardiovascular Disease; ATTEND Internal Medicine Cardiovascular Disease

== ENCOUNTER 2016-09-20 11:23 | Inpatient (IN) ==
[2016-09-20] MEDS ORDERED: ONDANSETRON 4 MG/2 ML VIAL IV PRN (13:43)
[2016-09-20] MEDS ORDERED: ACETAMINOPHEN 325 MG TABLET PO PRN (13:43)
[2016-09-20] MEDS ORDERED: POTASSIUM CHLORIDE RIDER 10 MEQ in PREMIX 1 EACH IV PRN (13:43)
[2016-09-20] MEDS ORDERED: MAGNESIUM SULF RIDER 4 GM in PREMIX 1 EACH IV PRN (13:43)
[2016-09-20] MEDS ORDERED: MAGNESIUM SULF RIDER 2 GM in PREMIX 1 EACH IV PRN (13:43)
[2016-09-20] MEDS ORDERED: ZALEPLON 5 MG CAPSULE PO PRN (13:43)
[2016-09-20] MEDS ORDERED: DOCUSATE SODIUM 100 MG CAPSULE PO PRN (13:43)
[2016-09-20] MEDS ORDERED: NITROGLYCERIN SL 0.4 MG TABLET SL PRN (14:04)
[2016-09-20 14:44] LABS: Basophils % 0.2 % (0.0-0.8); Eosinophils % 0.8 % (0.00-10.9); Hematocrit 31.7 VOL% (35.7-47.0); Hemoglobin 10.3 GM/DL (12.0-16.0); Immature Granulocytes % 0.2 %; Immature Granulocytes Absolute 0.01 #; Lymphocytes # 0.8 10*3/uL (1.4-4.0); Mean Corpuscular HGB Conc 32.5 GM/DL (32-36); Mean Corpuscular Hemoglobin 28 PG (27-34); Mean Corpuscular Volume 85.4 FL (87-102); Mean Platelet Volume 9.4 FL (9.6-12.0); Monocytes # 0.4 10*3/uL (0.11-0.8); Monocytes % 8.5 % (1.7-12.7); NRBC # 0.03 10*3/uL; Neutrophils # 3.9 10*3/uL (1.4-7.4); Neutrophils % 74.3 % (38.7-73.9); Platelet Count 177 T/CUMM (130-400); Red Blood Count 3.71 MC/CUMM (3.8-5.5); Red Cell Distribution Width 17.8 % (9.3-17.3); White Blood Count 5.2 T/CUMM (4-12)
[2016-09-20 15:10] LABS: Troponin I Only 0.129 NG/ML (0.00-0.045)
[2016-09-20] MEDS: FUROSEMIDE 40 MG/4 ML VIAL IV SCH (15:10)
[2016-09-20] MEDS: CARVEDILOL 3.125 MG TABLET PO SCH ×2 (15:11→22:08)
[2016-09-20 15:14] LABS: Albumin 3.7 G/DL (3.4-5.0); Bilirubin,Total 0.9 MG/DL (0.2-1.0); Calcium 8.7 MG/DL (8.5-10.1); Potassium 4.4 MMOL/L (3.5-5.1); Thyroid Stimulating Hormone 0.396 uIU/ml (0.358-3.74); Total Protein 6.6 G/DL (6.4-8.3)
--- NOTE | 2016-09-20 15:26 | EKG Report ---
Stationary ECG Study [facility] Test Date: 09/20/2016 2:31:16 PM Pat Name: ESTUARDO FUNG Department: Room: 266 Gender: F Pattern Puncher: IRINA : 1955 Requested by: Jacque Moore Order Number: [id number] Reading MD: ANTONOI LUGO Intervals [place] Rate: 93 P: 56 ND: 162 QRS: 7 QRSD: 102 T: 191 QT: 347 QTc: 397 Interpretive Statements SINUS RHYTHM WITH OCCASIONAL SUPRAVENTRICULAR PREMATURE COMPLEXES LEFT ATRIAL ENLARGEMENT ST DEVIATION AND MODERATE T-WAVE ABNORMALITY, CONSIDER INFERIOR ISCHEMIA INTERPRETATION BASED ON A DEFAULT AGE OF 40 YEARS Electronically Signed On 09-20-16 18:44:50 CDT by ANTONIO LUGO [id number]
--- NOTE | 2016-09-20 16:02 | XRay Report ---
XR chest 2V Indication: Shortness of breath Comparison: 21 June 2016 Findings: The heart and mediastinum are stable in size and configuration with cardiac surgery changes. The pulmonary vascularity is normal in caliber. Lung volumes are increased with prominent bronchial markings. Small right and moderate left pleural effusions are present, similar findings were seen on previous studies. No other lung infiltrates, effusions, pneumothorax or other abnormality is demonstrated. Impression: Chronic lung and cardiac surgery changes. Bilateral pleural effusions and/or pleural thickening, similar to previous exam. No significant change. PROCEDURE INTERPRETED AT [facility] DEPARTMENT OF RADIOLOGY Final Report Signed by: Dr. Fernando Chow
[2016-09-20] MEDS: ALBUTEROL/IPRATROPIUM 3 ML NEB RESP TX SCH (19:26)
[2016-09-20] MEDS: MONTELUKAST 10 MG TABLET PO SCH (22:08)
[2016-09-20 22:29] LABS: Troponin I Only 0.123 NG/ML (0.00-0.045)
[2016-09-21 05:47] LABS: Basophils % 0.4 % (0.0-0.8); Eosinophils # 0.1 10*3/uL (0.0-0.87); Eosinophils % 2.2 % (0.00-10.9); Hematocrit 32.7 VOL% (35.7-47.0); Hemoglobin 10.8 GM/DL (12.0-16.0); Immature Granulocytes % 0.4 %; Immature Granulocytes Absolute 0.02 #; Lymphocytes # 1.1 10*3/uL (1.4-4.0); Lymphocytes % 22.5 % (21.3-54.2); Mean Corpuscular Hemoglobin 28 PG (27-34); Mean Corpuscular Volume 85.4 FL (87-102); Mean Platelet Volume 9.6 FL (9.6-12.0); Monocytes # 0.6 10*3/uL (0.11-0.8); Monocytes % 12.2 % (1.7-12.7); Neutrophils # 3.1 10*3/uL (1.4-7.4); Neutrophils % 62.3 % (38.7-73.9); Platelet Count 195 T/CUMM (130-400); Red Blood Count 3.83 MC/CUMM (3.8-5.5); Red Cell Distribution Width 17.7 % (9.3-17.3); White Blood Count 4.9 T/CUMM (4-12)
[2016-09-21 06:21] LABS: Albumin 3.6 G/DL (3.4-5.0); Bilirubin,Total 0.8 MG/DL (0.2-1.0); Calcium 8.5 MG/DL (8.5-10.1); Osmolality,Calculated 282.1 MOS/KG (273-304); Potassium 4.2 MMOL/L (3.5-5.1); Risk Ratio 3.17; Total Protein 6.6 G/DL (6.4-8.3); VLDL CHOLESTEROL 21.8 MG/DL
[2016-09-21 06:32] LABS: Troponin I Only 0.131 NG/ML (0.00-0.045)
[2016-09-21] MEDS: ALBUTEROL/IPRATROPIUM 3 ML NEB RESP TX SCH ×4 (07:21→19:04)
--- NOTE | 2016-09-21 08:48 | EKG Report ---
Stationary ECG Study [facility] Test Date: 09/21/2016 7:20:04 AM Pat Name: ESTUARDO FUNG Department: Room: 266 Gender: F Sharepoint Analyst: IRINA : 1955 Requested by: Jacque Moore Order Number: [id number] Reading MD: HI WELSH Intervals [place] Rate: 81 P: 67 LA: 163 QRS: 53 QRSD: 99 T: 201 QT: 360 QTc: 397 Interpretive Statements SINUS RHYTHM POSSIBLE LEFT ATRIAL ENLARGEMENT ST DEVIATION AND MODERATE T-WAVE ABNORMALITY, CONSIDER INFERIOR ISCHEMIA Electronically Signed On 09-21-16 11:33:12 CDT by HI WELSH [email or web address]
[2016-09-21] MEDS: CARVEDILOL 3.125 MG TABLET PO SCH ×2 (09:13→21:20)
[2016-09-21] MEDS: FERROUS SULFATE 325 MG TABLET PO SCH (09:13)
[2016-09-21] MEDS: prednisoLONE 5 MG TABLET PO SCH (09:13)
[2016-09-21] MEDS: DOCUSATE SODIUM 100 MG CAPSULE PO SCH (09:13)
[2016-09-21] MEDS: ASPIRIN 325 MG TABLET PO SCH (09:13)
[2016-09-21] MEDS: PANTOPRAZOLE 40 MG TABLET PO SCH (09:13)
[2016-09-21] MEDS: FUROSEMIDE 40 MG/4 ML VIAL IV SCH (09:13)
[2016-09-21] MEDS: DIGOXIN 0.125 MG TABLET PO SCH (12:50)
--- NOTE | 2016-09-21 12:55 | Cardiology Progress Note ---
Blas Chase Vanessa, RN, am scribing for, and in the presence of, Jacque Acevedo NP 12:52. <Jacque Acevedo - Last Filed: 09/21/16 12:37> Assessment and Plan - Time spent with patient Time spent with patient: Greater than 30 minutes (1) Ischemic cardiomyopathy Status: Chronic Assessment and plan: SEE PLAN OF CARE LISTED BELOW Current Visit: Yes (2) Non-compliance Status: Acute Assessment and plan: SEE PLAN OF CARE LISTED BELOW Current Visit: Yes (3) Atrial fibrillation Status: Chronic Assessment and plan: SEE PLAN OF CARE LISTED BELOW Current Visit: No Qualifiers: Atrial fibrillation type: paroxysmal Qualified Code(s): I48.0 - Paroxysmal atrial fibrillation (4) Coronary artery disease Status: Chronic Assessment and plan: SEE PLAN OF CARE LISTED BELOW Current Visit: No Qualifiers: Coronary Disease-Associated Artery/Lesion type: [place] artery [place] vs. transplanted heart: [place] heart Associated angina: without angina Qualified Code(s): I25.10 - Atherosclerotic heart disease of [place] coronary artery without angina pectoris (5) Bioprosthetic mitral valve replacement, current hospitalization Status: Chronic Assessment and plan: SEE PLAN OF CARE LISTED BELOW Current Visit: No (6) Dyslipidemia Status: Chronic Assessment and plan: SEE PLAN OF CARE LISTED BELOW Current Visit: No Cardiology - PN: Subj Interval history: PRIMARY TOOL DESIGNER: DR. BRENDA VELEZ Ms. Schmidt is a 61 year old black female who is routinely followed by cardiology. Past medical history includes stage IV ischemic cardiomyopathy, CAD , CVA, COPD, acute on chronic combined systolic and diastolic congestive heart failure, dyslipidemia, hypertension, and chronic atrial fibrillation. History of mitral valve replacement (tissue valve). Patient was directly admitted to telemetry floor on 09/20/16 from [facility] after being evaluated as a work in for complaints of chest pain. In the clinic, she complained of intermittent chest pain with radiation to the left arm, increasing dyspnea over the past week , and cough 2 weeks. It is noted that she had not taken her Lasix, Lisinopril , or Metolazone in approximately 6 weeks. Patient was noted to be tachypneic during exam and complained of increasing orthopnea and fatigue at home. SEPTEMBER 21, 2016: This morning, patient sitting on side of bed and breathing much easier. Overnight she has lost 3 kg. Lung sounds are much improved with scant crackles noted in the left posterior base. Blood pressures much improved. She denies chest pain, heaviness or tightness. Troponins are flat at 0.123-0.131. Of note, she has chronically elevated troponins and these results are the lowest her troponins have been since June 2015. [facility] abnormal. She continues to take aspirin, low-dose beta blockade,. Will initiate lipid-lowering agent as her LDL is 122. Blood pressure will not allow for introduction of an LUCERO inhibitor at this point. She continues to receive IV Lasix 80 mg twice daily. Will transition to oral dosing starting this evening. Hopefully, should the patient continued to improve, she may be eligible for discharge in the morning. ASSESSMENT/PLAN: 1. ACUTE ON CHRONIC CHF - secondary to systolic dysfunction (EF 10%) and diastolic dysfunction. Initially, NYHA Class IV, this morning improved to NYHA Class II-III. Continue with diuresis, strict I&O and daily weights. 2. ICM - continue current plan of care 3. DYSLIPIDEMIA - LDL 122. Restart lipid lowering agent 4. S/P MITRAL VALVE REPLACEMENT (TISSUE VALVE) - continue plan of care. 5. PAROXYSMAL ATRIAL FIBRILLATION - history of anemia and not previously considered as candidate for anti-coagulation. 6. NON-COMPLIANCE - reiterated importance on medication compliance. 7. CAD - no complaints of angina 7. CHRONICALLY ELEVATED TROPONIN - this is not NSTEMI Exam (Progress Note) - Constitutional Vitals: Period Temp Pulse Resp BP Sys/Bower Pulse Ox Last 24 Hr 96.9 F-98.4 F 71-101 16-20 107-146/64-82 92-98 Exam: General: [Appears well with no apparent distress.] [Pleasant and cooperative. ] [Appears comfortable.] HEENT: [PERRL, normocephalic, atraumatic. Mucous membranes moist. No jaundice noted. Conjunctiva moist and clear, sclerae anicteric] Neck: No JVD/HJR, no thyromegaly or lymphadenopathy noted. No carotid bruit appreciated Cardiac: [Regular rate and rhythm.] [No murmur rub or gallop.] Lungs: [Left posterior base noted to have expiratory crackles. ] Using oxygen intermittently Abdomen: Soft, bowel sounds normoactive. Nontender and nondistended. No abdominal bruit or thrill noted. No masses noted. Musculoskeletal: No fluid collection. Decreased range of motion is noted. Extremities: No clubbing, cyanosis noted. [ No edema noted.] Upper extremity pulses 2+. Lower extremity pulses 2+. Capillary refill less than 3 seconds. Skin: No unusual lesions or rashes. No skin breakdown appreciated. Neuro: Awake, alert and oriented 3. Moves all extremities well without hemiparesis or paralysis. No essential tremor is appreciated. Result/EKG - Labs CBC & BMP: 09/21/16 05:05 09/21/16 05:05 Lab Results: I have reviewed the past 24 hour labs Labs: Laboratory Results - last 24 hr 09/20/16 09/20/16 09/20/16 14:33 14:33 14:33 WBC 5.2 RBC 3.71 L Hgb 10.3 L Hct 31.7 L MCV 85.4 L MCH 28 MCHC 32.5 RDW 17.8 H Plt Count 177 MPV 9.4 L Neut % (Auto) 74.3 H Lymph % (Auto) 16.0 L [place] % (Auto) 8.5 Eos % (Auto) 0.8 Baso % (Auto) 0.2 Neut # (Auto) 3.9 Lymph # (Auto) 0.8 L [place] # (Auto) 0.4 Eos # (Auto) 0.0 Baso # (Auto) 0.0 Immature Gran % 0.2 Nucleated RBC % 0.6 Immature Gran # 0.01 Nucleated RBCs # 0.03 Sodium 143 Potassium 4.4 Chloride 109 H Carbon Dioxide 27 Anion Gap 11.4 BUN 12 Creatinine 0.90 GFR Calculation 75 BUN/Creatinine Ratio 13.00 Glucose 139 H Calculated Osmolality 286.0 Calcium 8.7 Total Bilirubin 0.90 AST 18 ALT 25 Alkaline Phosphatase 106 Total Creatine Kinase 60 CK-MB (CK-2) 2.1 Troponin I 0.129 H Total Protein 6.6 Albumin 3.7 Globulin 2.9 Albumin/Globulin Ratio 1.2 Triglycerides Cholesterol LDL Cholesterol VLDL Cholesterol HDL Cholesterol Heart Disease Risk Ratio TSH 3rd Generation 0.396 09/20/16 09/21/16 09/21/16 21:45 05:05 05:05 WBC 4.9 RBC 3.83 Hgb 10.8 L Hct 32.7 L MCV 85.4 L MCH 28 MCHC 33.0 RDW 17.7 H Plt Count 195 MPV 9.6 Neut % (Auto) 62.3 Lymph % (Auto) 22.5 [place] % (Auto) 12.2 Eos % (Auto) 2.2 Baso % (Auto) 0.4 Neut # (Auto) 3.1 Lymph # (Auto) 1.1 L [place] # (Auto) 0.6 Eos # (Auto) 0.1 Baso # (Auto) 0.0 Immature Gran % 0.4 Nucleated RBC % 0.0 Immature Gran # 0.02 Nucleated RBCs # 0.00 Sodium Potassium Chloride Carbon Dioxide Anion Gap BUN Creatinine GFR Calculation BUN/Creatinine Ratio Glucose Calculated Osmolality Calcium Total Bilirubin AST ALT Alkaline Phosphatase Total Creatine Kinase 67 55 CK-MB (CK-2) 1.8 2.1 Troponin I 0.123 H 0.131 H Total Protein Albumin Globulin Albumin/Globulin Ratio Triglycerides Cholesterol LDL Cholesterol VLDL Cholesterol HDL Cholesterol Heart Disease Risk Ratio TSH 3rd Generation 09/21/16 05:05 WBC RBC Hgb Hct MCV MCH MCHC RDW Plt Count MPV Neut % (Auto) Lymph % (Auto) [place] % (Auto) Eos % (Auto) Baso % (Auto) Neut # (Auto) Lymph # (Auto) [place] # (Auto) Eos # (Auto) Baso # (Auto) Immature Gran % Nucleated RBC % Immature Gran # Nucleated RBCs # Sodium 142 Potassium 4.2 Chloride 105 Carbon Dioxide 31 Anion Gap 10.2 BUN 11 Creatinine 0.80 GFR Calculation 86 BUN/Creatinine Ratio 13.00 Glucose 113 H Calculated Osmolality 282.1 Calcium 8.5 Total Bilirubin 0.80 AST 19 ALT 24 Alkaline Phosphatase 126 H Total Creatine Kinase CK-MB (CK-2) Troponin I Total Protein 6.6 Albumin 3.6 Globulin 3.0 Albumin/Globulin Ratio 1.2 Triglycerides 109 Cholesterol 203 H LDL Cholesterol 122.0 VLDL Cholesterol 21.8 HDL Cholesterol 64 H Heart Disease Risk Ratio 3.17 TSH 3rd Generation - Diagnostic Findings Procedure: Chest x-ray: report reviewed by me - EKG EKG results: interpreted by me, no acute changes EKG shows: sinus rhythm <Angel Whitehead - Last Filed: 09/21/16 16:02> Cardiology - PN: Subj Interval history: This patient was admitted with an exacerbation of congestive heart failure which is markedly improved with intravenous diuresis. Hopefully she will be ready for discharge tomorrow. We will switch her over to p.o. medicines and reassess in the a.m. Exam (Progress Note) - Constitutional Vitals: Period Temp Pulse Resp BP Sys/Bower Pulse Ox Last 24 Hr 97.6 F-98.4 F 71-88 16-20 107-146/64-82 92-99 Result/EKG - Labs CBC & BMP: 09/21/16 05:05 09/21/16 05:05 Labs: Laboratory Results - last 24 hr 09/20/16 09/21/16 09/21/16 21:45 05:05 05:05 WBC 4.9 RBC 3.83 Hgb 10.8 L Hct 32.7 L MCV 85.4 L MCH 28 MCHC 33.0 RDW 17.7 H Plt Count 195 MPV 9.6 Neut % (Auto) 62.3 Lymph % (Auto) 22.5 [place] % (Auto) 12.2 Eos % (Auto) 2.2 Baso % (Auto) 0.4 Neut # (Auto) 3.1 Lymph # (Auto) 1.1 L [place] # (Auto) 0.6 Eos # (Auto) 0.1 Baso # (Auto) 0.0 Immature Gran % 0.4 Nucleated RBC % 0.0 Immature Gran # 0.02 Nucleated RBCs # 0.00 Sodium Potassium Chloride Carbon Dioxide Anion Gap BUN Creatinine GFR Calculation BUN/Creatinine Ratio Glucose Calculated Osmolality Calcium Total Bilirubin AST ALT Alkaline Phosphatase Total Creatine Kinase 67 55 CK-MB (CK-2) 1.8 2.1 Troponin I 0.123 H 0.131 H Total Protein Albumin Globulin Albumin/Globulin Ratio Triglycerides Cholesterol LDL Cholesterol VLDL Cholesterol HDL Cholesterol Heart Disease Risk Ratio 09/21/16 09/21/16 05:05 14:05 WBC RBC Hgb Hct MCV MCH MCHC RDW Plt Count MPV Neut % (Auto) Lymph % (Auto) [place] % (Auto) Eos % (Auto) Baso % (Auto) Neut # (Auto) Lymph # (Auto) [place] # (Auto) Eos # (Auto) Baso # (Auto) Immature Gran % Nucleated RBC % Immature Gran # Nucleated RBCs # Sodium 142 Potassium 4.2 Chloride 105 Carbon Dioxide 31 Anion Gap 10.2 BUN 11 Creatinine 0.80 GFR Calculation 86 BUN/Creatinine Ratio 13.00 Glucose 113 H Calculated Osmolality 282.1 Calcium 8.5 Total Bilirubin 0.80 AST 19 ALT 24 Alkaline Phosphatase 126 H Total Creatine Kinase 54 CK-MB (CK-2) 2.0 Troponin I 0.125 H Total Protein 6.6 Albumin 3.6 Globulin 3.0 Albumin/Globulin Ratio 1.2 Triglycerides 109 Cholesterol 203 H LDL Cholesterol 122.0 VLDL Cholesterol 21.8 HDL Cholesterol 64 H Heart Disease Risk Ratio 3.17 Kristina Chase Bonnie E, NP, personally performed the services described in this documentation, ascribed by Rita Odonnell RN in my presence, and it is both accurate and complete .
[2016-09-21 14:39] LABS: Troponin I Only 0.125 NG/ML (0.00-0.045)
[2016-09-21] MEDS: FUROSEMIDE 80 MG TABLET PO SCH (17:00)
[2016-09-21] MEDS: MONTELUKAST 10 MG TABLET PO SCH (21:20)
[2016-09-21] MEDS: ATORVASTATIN 40 MG TABLET PO SCH (21:20)
[2016-09-22 05:33] LABS: Basophils % 0.3 % (0.0-0.8); Eosinophils # 0.2 10*3/uL (0.0-0.87); Eosinophils % 2.8 % (0.00-10.9); Hematocrit 32.7 VOL% (35.7-47.0); Hemoglobin 10.6 GM/DL (12.0-16.0); Immature Granulocytes % 0.5 %; Immature Granulocytes Absolute 0.03 #; Lymphocytes # 1.1 10*3/uL (1.4-4.0); Lymphocytes % 19.7 % (21.3-54.2); Mean Corpuscular HGB Conc 32.4 GM/DL (32-36); Mean Corpuscular Hemoglobin 28 PG (27-34); Mean Corpuscular Volume 85.2 FL (87-102); Mean Platelet Volume 10.1 FL (9.6-12.0); Monocytes # 0.7 10*3/uL (0.11-0.8); Monocytes % 12.9 % (1.7-12.7); Neutrophils # 3.7 10*3/uL (1.4-7.4); Neutrophils % 63.8 % (38.7-73.9); Platelet Count 191 T/CUMM (130-400); Red Blood Count 3.84 MC/CUMM (3.8-5.5); Red Cell Distribution Width 18.1 % (9.3-17.3); White Blood Count 5.7 T/CUMM (4-12)
[2016-09-22 06:05] LABS: Calcium 8.8 MG/DL (8.5-10.1); Magnesium 1.9 MG/DL (1.8-2.4); Osmolality,Calculated 284.8 MOS/KG (273-304); Potassium 3.8 MMOL/L (3.5-5.1)
[2016-09-22] MEDS: ALBUTEROL/IPRATROPIUM 3 ML NEB RESP TX SCH ×4 (07:13→19:38)
[2016-09-22] MEDS: FERROUS SULFATE 325 MG TABLET PO SCH (10:29)
[2016-09-22] MEDS: prednisoLONE 5 MG TABLET PO SCH (10:29)
[2016-09-22] MEDS: FUROSEMIDE 80 MG TABLET PO SCH ×2 (10:29→16:39)
[2016-09-22] MEDS: ASPIRIN 325 MG TABLET PO SCH (10:29)
[2016-09-22] MEDS: CARVEDILOL 3.125 MG TABLET PO SCH ×2 (10:30→21:24)
[2016-09-22] MEDS: PANTOPRAZOLE 40 MG TABLET PO SCH (10:30)
[2016-09-22] MEDS: DOCUSATE SODIUM 100 MG CAPSULE PO SCH (10:30)
--- NOTE | 2016-09-22 11:30 | Cardiology Progress Note ---
Assessment and Plan (1) Lightheadedness Status: Acute Assessment and plan: We will check carotid Dopplers and orthostatic vital signs. Current Visit: Yes Cardiology - PN: Subj Interval history: This morning the patient's complaining of dizziness particularly with getting up and moving about. I am going to check some carotid Doppler studies and orthostatic vitals. She is on p.o. Lasix and has not diuresed significantly. Her rhythm is stable and we will continue looking to see whether this is related to some issue with her diuresis. Exam (Progress Note) - Constitutional Vitals: Period Temp Pulse Resp BP Sys/Bower Pulse Ox Last 24 Hr 97.5 F-98.1 F 66-84 16-20 109-124/56-79 93-100 Exam: General:no acute distress. alert and oriented, mood and affect are normal. She is complaining of dizziness HEENT: no new lesions, sclerae are clear, mouth and pharynx benign Neck: supple, trachea midline, no JVD noted Lungs: no rales ronchi or wheeze is noted. pt comfortable without accesory muscle use to assist with breathing CV: RRR no murmur rub or gallop is noted. Abd: soft and nontender, BSNA, no masses. Ext: no cyanosis, clubbing or edema Neuro: grossly intact without focal neurologic deficit. Result/EKG - Labs CBC & BMP: 09/22/16 03:56 09/22/16 03:56 Labs: Laboratory Results - last 24 hr 09/21/16 09/22/16 09/22/16 14:05 03:56 03:56 WBC 5.7 RBC 3.84 Hgb 10.6 L Hct 32.7 L MCV 85.2 L MCH 28 MCHC 32.4 RDW 18.1 H Plt Count 191 MPV 10.1 Neut % (Auto) 63.8 Lymph % (Auto) 19.7 L [place] % (Auto) 12.9 H Eos % (Auto) 2.8 Baso % (Auto) 0.3 Neut # (Auto) 3.7 Lymph # (Auto) 1.1 L [place] # (Auto) 0.7 Eos # (Auto) 0.2 Baso # (Auto) 0.0 Immature Gran % 0.5 Nucleated RBC % 0.0 Immature Gran # 0.03 Nucleated RBCs # 0.00 Sodium 144 Potassium 3.8 Chloride 103 Carbon Dioxide 31 Anion Gap 13.8 BUN 10 Creatinine 0.80 GFR Calculation 85 BUN/Creatinine Ratio 12.00 Glucose 91 Calculated Osmolality 284.8 Calcium 8.8 Magnesium 1.9 Total Creatine Kinase 54 CK-MB (CK-2) 2.0 Troponin I 0.125 H B-Natriuretic Peptide 09/22/16 03:56 WBC RBC Hgb Hct MCV MCH MCHC RDW Plt Count MPV Neut % (Auto) Lymph % (Auto) [place] % (Auto) Eos % (Auto) Baso % (Auto) Neut # (Auto) Lymph # (Auto) [place] # (Auto) Eos # (Auto) Baso # (Auto) Immature Gran % Nucleated RBC % Immature Gran # Nucleated RBCs # Sodium Potassium Chloride Carbon Dioxide Anion Gap BUN Creatinine GFR Calculation BUN/Creatinine Ratio Glucose Calculated Osmolality Calcium Magnesium Total Creatine Kinase CK-MB (CK-2) Troponin I B-Natriuretic Peptide 2490 H
[2016-09-22] MEDS: DIGOXIN 0.125 MG TABLET PO SCH (13:55)
--- NOTE | 2016-09-22 14:27 | Ultrasound Report ---
History: Lightheadedness Date: 09/22/2016 Study: Carotid duplex ultrasound Comparison exam: No previous similar Color Doppler, wave form analysis, and grayscale analysis of the cervical carotid arteries was performed. There is mild to moderate partially calcified plaque in either carotid bulb. Waveform analysis shows proper directional flow of the cervical carotid arteries. There is antegrade flow in either vertebral artery. The distal right ICA measures 4.9 mm diameter; the left measures 4.3 mm diameter. Peak systolic velocities are as follows: Right CCA 83 cm/s Right ICA 106 cm/s Right ECA 100 cm/s Right vertebral 33 cm/s Right IC/CC ratio 1.3 Left CCA 90 cm/s Left ICA 92 cm/s Left ECA 198 cm/s Left vertebral 70 cm/s Left IC/CC ratio 1.0 There is 0-15% diameter reduction narrowing of either internal carotid artery using indirect NASCET criteria. Ultrasound images were captured and archived. Impression: No hemodynamically significant internal carotid artery stenosis PROCEDURE INTERPRETED AT [facility] DEPARTMENT OF RADIOLOGY Final Report Signed by: Dr. Hali Dennis
[2016-09-22] MEDS: ATORVASTATIN 40 MG TABLET PO SCH (21:24)
[2016-09-22] MEDS: MONTELUKAST 10 MG TABLET PO SCH (21:24)
[2016-09-23 06:02] LABS: Basophils % 0.7 % (0.0-0.8); Eosinophils # 0.2 10*3/uL (0.0-0.87); Eosinophils % 2.5 % (0.00-10.9); Hematocrit 32.1 VOL% (35.7-47.0); Hemoglobin 10.3 GM/DL (12.0-16.0); Immature Granulocytes % 0.5 %; Immature Granulocytes Absolute 0.03 #; Lymphocytes # 1.3 10*3/uL (1.4-4.0); Lymphocytes % 21.4 % (21.3-54.2); Mean Corpuscular HGB Conc 32.1 GM/DL (32-36); Mean Corpuscular Hemoglobin 27 PG (27-34); Mean Corpuscular Volume 85.4 FL (87-102); Mean Platelet Volume 9.6 FL (9.6-12.0); Monocytes # 0.8 10*3/uL (0.11-0.8); Monocytes % 13.9 % (1.7-12.7); Neutrophils # 3.7 10*3/uL (1.4-7.4); Platelet Count 198 T/CUMM (130-400); Red Blood Count 3.76 MC/CUMM (3.8-5.5); Red Cell Distribution Width 18.1 % (9.3-17.3)
[2016-09-23 06:32] LABS: Calcium 8.3 MG/DL (8.5-10.1); Osmolality,Calculated 284.8 MOS/KG (273-304); Potassium 3.7 MMOL/L (3.5-5.1)
[2016-09-23] MEDS: ALBUTEROL/IPRATROPIUM 3 ML NEB RESP TX SCH ×2 (07:26→11:28)
[2016-09-23 08:24] VITALS: BP 126/64
[2016-09-23] MEDS: prednisoLONE 5 MG TABLET PO SCH (09:04)
[2016-09-23] MEDS: CARVEDILOL 3.125 MG TABLET PO SCH (09:04)
[2016-09-23] MEDS: FERROUS SULFATE 325 MG TABLET PO SCH (09:04)
[2016-09-23] MEDS: FUROSEMIDE 80 MG TABLET PO SCH (09:04)
[2016-09-23] MEDS: ASPIRIN 325 MG TABLET PO SCH (09:04)
[2016-09-23] MEDS: PANTOPRAZOLE 40 MG TABLET PO SCH (09:04)
[2016-09-23] MEDS: DOCUSATE SODIUM 100 MG CAPSULE PO SCH (09:04)
--- NOTE | 2016-09-23 09:51 | Discharge Summary ---
Hospital Course - Hospital Course Hospital Course: 61-year-old lady who has a history of congestive heart failure cardiomyopathy presented with worsening dyspnea admitted for intensification of her medical therapy. She has responded with good diuresis and improvement in her shortness of breath to the point that I think she is ready for discharge at this time. She also had chest discomfort prior to this admission which was somewhat atypical and her troponin pattern is not consistent with an acute coronary syndrome. She has had some dizziness which sounds most like vertigo and I have asked that she follow-up with the ear nose and throat doctors related to this if it continues. She underwent carotid Doppler which was unrevealing and her rhythm has been stable in the hospital. I think she is reached maximal hospital benefit and is ready for discharge at this time see Dr. Gerber back in about a week. She has been fully instructed related activities medications and precautions. Diagnosis - Discharge Diagnosis (1) Lightheadedness Status: Acute Discharge Plan - Discharge Data Disposition: Disch To Home/Self Care Condition at Discharge: Stable Discharge Diet: heart healthy Activity: resume usual activities as tolerated - Discharge Medications New Atorvastatin [Lipitor] 40 mg PO BEDTIME #30 tablet Pantoprazole Tab [Protonix Tab] 40 mg PO DAILY PRN #30 tablet PRN Reason: Gastroesophageal reflux sympto Furosemide Tab [Lasix Tab] 40 mg PO DAILY #30 tablet Continue Ferrous Sulfate 325 mg PO DAILY Docusate Sodium Cap [Colace Cap] 100 mg PO DAILY Montelukast Tab [Singulair Tab] 10 mg PO BEDTIME Ipratropium/Albuterol Inhaler [Combivent Respimat Inhaler] 1 puff INH QID MDD 6puffs Aspirin 325 mg PO DAILY Nitroglycerin [Nitroglycerin SL Tab] 0.4 mg SL DIRECTED PRN MDD 3 tabs PRN Reason: Chest Pain Digoxin 125 mcg PO 1300 Carvedilol 3.125 mg PO BID predniSONE [Prednisone] 5 mg PO DAILY - Follow Up or Referral Follow Up: Carina Figueroa DO [Physician] - 2 Weeks (BMP with magnesium on return to clinic EKG on return) - Forms/Instructions Exam - Constitutional Vitals: Period Temp Pulse Resp BP Sys/Bower Pulse Ox Last 24 Hr 97.6 F-98.4 F 60-87 16-20 97-126/53-70 90-100 Discharge Results Procedures and tests throughout hospitalization: Pending Orders 09/24/16 04:00 BMP w/ Mg [Basic Metabolic Panel w/Mg] IN AM CBC [Comp Blood Count Auto Diff] IN AM 09/25/16 04:00 BMP w/ Mg [Basic Metabolic Panel w/Mg] IN AM CBC [Comp Blood Count Auto Diff] IN AM Labs on day of discharge: Labs from last 24 hours 09/23/16 09/23/16 05:32 05:32 WBC 6.0 RBC 3.76 L Hgb 10.3 L Hct 32.1 L MCV 85.4 L MCH 27 MCHC 32.1 RDW 18.1 H Plt Count 198 MPV 9.6 Neut % (Auto) 61.0 Lymph % (Auto) 21.4 [place] % (Auto) 13.9 H Eos % (Auto) 2.5 Baso % (Auto) 0.7 Neut # (Auto) 3.7 Lymph # (Auto) 1.3 L [place] # (Auto) 0.8 Eos # (Auto) 0.2 Baso # (Auto) 0.0 Immature Gran % 0.5 Nucleated RBC % 0.0 Immature Gran # 0.03 Nucleated RBCs # 0.00 Sodium 144 Potassium 3.7 Chloride 103 Carbon Dioxide 33 H Anion Gap 11.7 BUN 12 Creatinine 0.80 GFR Calculation 85 BUN/Creatinine Ratio 15.00 Glucose 89 Calculated Osmolality 284.8 Calcium 8.3 L Magnesium 2.0 DS: Provider Date of admission: 09/20/16 11:46 Primary care physician: Austin Cartwright Attending physician on admission: Carina Figueroa DO Discharging clinician: Angel Whitehead MD
--- NOTE | 2016-09-25 14:56 | Physician Query Form ---
CLICK EDIT DOCUMENT TO SELECT QUERY ANSWER --> OK --> SIGN Eleanor Bello RN, CCDS Certified Clinical Robotics Testing Technician (W) [phone] (F) [phone] [email or web address] PROVIDERS: Make your selection(s) from the choices in EACH section by typing an "x" and enter comments in the comment section. Please use your independent medical judgment in providing your response. This request does not imply that any particular answer is desired or expected. CLINICAL INDICATORS: (Providers should not edit this section) Height: 5' 6" Weight: 54.998 Kg Counseling Center Manager BMI: 19.4# Nutritional supplements: Analysis Consultant notes: "S'serra Ensure Enlive w/ all meals". Other clinical notes: The medical record indicates that the patient was admitted with CHF, BMI of 19.4 #, "Loss of body fat", "Loss of muscle mass", " hx of ~30# wt. loss over last 2 year", Ht 5' 6", Kg 54.998 and will give "S'serra Ensure Enlive w/ all meals". Based on the above, which following choice most accurately represents the patient's nutritional status? ( ) Malnutrition ( ) mild ( ) moderate ( ) severe ( ) Protein calorie malnutrition ( ) mild ( ) moderate ( ) severe ( ) Emaciation due to malnutrition ( ) Nutritional marasmus ( ) Cachexia ( ) Underweight ( ) No nutritional deficiency ( ) Other, please specify: (x) Clinically unable to determine Mild Malnutrition (BMI < 18.5, % Normal Body Weight 85-95%) Moderate Malnutrition (BMI < 17, % Normal Body Weight 75-85%) Severe Malnutrition (BMI < 16, % Normal Body Weight < 75%) Source: Colette COMMENTS: PLEASE ALSO DOCUMENT RESPONSE IN PROGRESS NOTES AND/OR DISCHARGE SUMMARY Use of terms such as suspected, likely, or probable (associated with a specific diagnosis that is being evaluated, monitored, or treated as if it exists) are acceptable and can be restated in the discharge summary if not ruled out. MTDD
== END 2016-09-23 12:40 | disposition home or self-care (01) | DRG 293 ==
LOC: N.TELES → OBSVTOIN 11:46
PROVIDERS: ADMIT Internal Medicine Cardiovascular Disease; ATTEND Internal Medicine Cardiovascular Disease

== ENCOUNTER 2017-02-14 10:45 | Inpatient (IN) ==
[2017-02-14] MEDS ORDERED: MAGNESIUM SULF RIDER 2 GM in PREMIX 1 EACH IV PRN (11:18)
[2017-02-14] MEDS ORDERED: MAGNESIUM SULF RIDER 4 GM in PREMIX 1 EACH IV PRN (11:18)
[2017-02-14] MEDS ORDERED: MORPHINE 2 MG/1 ML SYRINGE IV PRN (11:18)
[2017-02-14] MEDS ORDERED: ZALEPLON 5 MG CAPSULE PO PRN (11:18)
[2017-02-14] MEDS ORDERED: ONDANSETRON 4 MG/2 ML VIAL IV PRN (11:18)
[2017-02-14] MEDS ORDERED: ACETAMINOPHEN 325 MG TABLET PO PRN (11:18)
[2017-02-14 12:08] LABS: Basophils % 0.3 % (0.0-0.8); Eosinophils % 0.6 % (0.00-10.9); Hematocrit 37.8 VOL% (35.7-47.0); Hemoglobin 12.9 GM/DL (12.0-16.0); Immature Granulocytes % 0.3 %; Immature Granulocytes Absolute 0.01 #; Lymphocytes % 28.1 % (21.3-54.2); Mean Corpuscular HGB Conc 34.1 GM/DL (32-36); Mean Corpuscular Hemoglobin 28 PG (27-34); Mean Corpuscular Volume 80.8 FL (87-102); Mean Platelet Volume 10.2 FL (9.6-12.0); Monocytes # 0.4 10*3/uL (0.11-0.8); Monocytes % 10.5 % (1.7-12.7); Neutrophils # 2.1 10*3/uL (1.4-7.4); Neutrophils % 60.2 % (38.7-73.9); Platelet Count 183 T/CUMM (130-400); Red Blood Count 4.68 MC/CUMM (3.8-5.5); Red Cell Distribution Width 14.7 % (9.3-17.3); White Blood Count 3.4 T/CUMM (4-12)
[2017-02-14] MEDS ORDERED: INFLUENZA VIRUS VACCINE 0.5 ML SYRINGE IM ONE (12:08)
[2017-02-14 12:26] LABS: Calcium 8.9 MG/DL (8.5-10.1); Osmolality,Calculated 277.4 MOS/KG (273-304); Potassium 3.4 MMOL/L (3.5-5.1)
[2017-02-14] MEDS: FUROSEMIDE 40 MG/4 ML VIAL IV SCH ×2 (13:28→15:54)
--- NOTE | 2017-02-14 15:19 | XRay Report ---
2 view chest. Indication: Heart failure. Comparison: September 20, 2016. The cardiac silhouette is markedly enlarged, similar to the previous exam. Prosthetic valve is visible as well as findings consistent with the previous median sternotomy. The pulmonary vasculature is prominent. The right lung is clear. There is atelectasis and pleural effusion at the left lung base, slightly improved from the previous. Osseous structures are stable. Impression: Interval improvement in atelectasis and pleural effusion at the left lung base, with clearing of the right lung base. Cardiomegaly with venous congestion. PROCEDURE INTERPRETED AT [facility] DEPARTMENT OF RADIOLOGY Final Report Signed by: Dr. Ju Cardenas
[2017-02-14] MEDS ORDERED: PHENYLEPHRINE PO PRN (16:00)
[2017-02-14] MEDS ORDERED: ACETAMINOP PO PRN (16:00)
[2017-02-14] MEDS ORDERED: PANTOPRAZOLE 40 MG TABLET PO PRN (16:00)
[2017-02-14] MEDS ORDERED: NITROGLYCERIN SL 0.4 MG TABLET SL PRN (16:00)
[2017-02-14] MEDS ORDERED: [UNRECOGNIZED DRUG - OTHER] PO PRN (16:00)
[2017-02-14 16:37] LABS: Free T4 (Free Thyroxine) 1.23 NG/DL (0.76-1.46); Thyroid Stimulating Hormone 0.989 uIU/ml (0.358-3.74)
[2017-02-14] MEDS: POTASSIUM CHLORIDE 20 MEQ TABLET PO SCH (21:33)
[2017-02-14] MEDS: ATORVASTATIN 40 MG TABLET PO SCH (21:34)
[2017-02-14] MEDS: CARVEDILOL 3.125 MG TABLET PO SCH (21:34)
[2017-02-14] MEDS: MONTELUKAST 10 MG TABLET PO SCH (21:34)
[2017-02-14] MEDS: DOCUSATE SODIUM 100 MG CAPSULE PO SCH (21:34)
[2017-02-15 04:42] LABS: Basophils % 0.6 % (0.0-0.8); Eosinophils % 0.6 % (0.00-10.9); Hematocrit 35.5 VOL% (35.7-47.0); Hemoglobin 12.3 GM/DL (12.0-16.0); Immature Granulocytes % 0.3 %; Immature Granulocytes Absolute 0.01 #; Lymphocytes # 0.9 10*3/uL (1.4-4.0); Lymphocytes % 29.2 % (21.3-54.2); Mean Corpuscular HGB Conc 34.6 GM/DL (32-36); Mean Corpuscular Hemoglobin 27 PG (27-34); Mean Corpuscular Volume 79.1 FL (87-102); Mean Platelet Volume 10.7 FL (9.6-12.0); Monocytes # 0.6 10*3/uL (0.11-0.8); Monocytes % 17.2 % (1.7-12.7); Neutrophils # 1.7 10*3/uL (1.4-7.4); Neutrophils % 52.1 % (38.7-73.9); Platelet Count 165 T/CUMM (130-400); Red Blood Count 4.49 MC/CUMM (3.8-5.5); Red Cell Distribution Width 14.5 % (9.3-17.3); White Blood Count 3.2 T/CUMM (4-12)
[2017-02-15 05:16] LABS: Calcium 8.5 MG/DL (8.5-10.1); Magnesium 1.9 MG/DL (1.8-2.4); Osmolality,Calculated 278.3 MOS/KG (273-304); Potassium 3.4 MMOL/L (3.5-5.1); Risk Ratio 3.15; VLDL CHOLESTEROL 10.4 MG/DL
[2017-02-15 05:35] LABS: Eosinophils 3 % (0-10); Giant Platelets Few; Hypochromasia 1+; Lymphocytes 22 % (20-55); Ovalocytes Slight; Platelet Estimate Normal; Segmented Neutrophils 57 % (50-85); Target Cells Few; Total Cells Counted 100
--- NOTE | 2017-02-15 08:44 | Event Note ---
Matt Chase Lesley, NP, am scribing for, and in the presence of, Jacque Acevedo NP 08:44. Jacque Chase Earley, ACNP, saw patient with LEONOR Gutierrez. I examined patient, reviewed data and discussed plan of care with Mrs. Gutierrez, who acted as a scribe for me. Ms. Schmidt is a 61-year-old BF, known to Dr. Figueroa. She was seen by Dr. Figueroa in clinic today and sent to [facility] for direct admission for acutely decompensated ischemic cardiomyopathy and unstable angina. Past medical history significant for history of CVA, ischemic cardiomyopathy, COPD, combined systolic and diastolic CHF, dyslipidemia, hypertension, nonrheumatic mitral regurgitation, anemia, pleural effusion, paroxysmal atrial fibrillation, CAD. Past surgical history includes mitral valve replacement, hysterectomy, status post pericardiocentesis. We will plan to diurese the patient while closely monitoring. Consider repeating left heart catheterization later in the week once she is diuresed and depending on her labs and clinical status. The patient was seen and examined upon arrival, vital signs are stable, chest x-ray pending. Labs reviewed, potassium 3.4, will replete. Cardiac biomarkers ordered, elevation noted in a plateaued pattern. Will continue to monitor this patient closely. Kristina Chase Bonnie E, NP, personally performed the services described in this documentation, ascribed by Lorelei Gutierrez NP in my presence, and it is both accurate and complete 844 .
[2017-02-15] MEDS: MULTIVITAMIN (CENTRUM) TABLET PO SCH (08:57)
[2017-02-15] MEDS: ASPIRIN 325 MG TABLET PO SCH (08:57)
[2017-02-15] MEDS: FERROUS SULFATE 325 MG TABLET PO SCH (08:57)
[2017-02-15] MEDS: predniSONE 5 MG TABLET PO SCH (08:57)
[2017-02-15] MEDS: PANTOPRAZOLE 40 MG TABLET PO SCH (08:57)
[2017-02-15] MEDS: FUROSEMIDE 40 MG/4 ML VIAL IV SCH ×2 (08:57→16:38)
[2017-02-15] MEDS: CARVEDILOL 3.125 MG TABLET PO SCH ×2 (08:57→21:20)
[2017-02-15] MEDS: POTASSIUM CHLORIDE 20 MEQ TABLET PO SCH ×2 (08:57→21:19)
[2017-02-15] MEDS: DOCUSATE SODIUM 100 MG CAPSULE PO SCH ×2 (08:58→21:20)
[2017-02-15] MEDS ORDERED: DOCUSATE SODIUM 100 MG CAPSULE PO SCH (09:00)
[2017-02-15] MEDS: POTASSIUM CHLORIDE RIDER 10 MEQ in PREMIX 1 EACH IV PRN ×3 (10:33→18:56)
[2017-02-15] MEDS: DIGOXIN 0.125 MG TABLET PO SCH (14:18)
--- NOTE | 2017-02-15 15:18 | Order Completion Report ---
See report scanned to EMR
[2017-02-15] MEDS: ALBUTEROL/IPRATROPIUM 3 ML NEB RESP TX SCH (21:00)
[2017-02-15] MEDS: ATORVASTATIN 40 MG TABLET PO SCH (21:19)
[2017-02-15] MEDS: MONTELUKAST 10 MG TABLET PO SCH (21:19)
[2017-02-16 05:37] LABS: Basophils % 0.3 % (0.0-0.8); Eosinophils % 0.8 % (0.00-10.9); Hematocrit 33.5 VOL% (35.7-47.0); Hemoglobin 11.3 GM/DL (12.0-16.0); Immature Granulocytes % 0.5 %; Immature Granulocytes Absolute 0.02 #; Lymphocytes % 26.2 % (21.3-54.2); Mean Corpuscular HGB Conc 33.7 GM/DL (32-36); Mean Corpuscular Hemoglobin 27 PG (27-34); Mean Corpuscular Volume 80.7 FL (87-102); Monocytes # 0.5 10*3/uL (0.11-0.8); Monocytes % 13.9 % (1.7-12.7); Neutrophils # 2.1 10*3/uL (1.4-7.4); Neutrophils % 58.3 % (38.7-73.9); Platelet Count 160 T/CUMM (130-400); Red Blood Count 4.15 MC/CUMM (3.8-5.5); Red Cell Distribution Width 14.7 % (9.3-17.3); White Blood Count 3.7 T/CUMM (4-12)
[2017-02-16 06:12] LABS: Calcium 8.5 MG/DL (8.5-10.1); Magnesium 1.7 MG/DL (1.8-2.4); Osmolality,Calculated 280.3 MOS/KG (273-304); Potassium 4.2 MMOL/L (3.5-5.1)
[2017-02-16] MEDS: ALBUTEROL/IPRATROPIUM 3 ML NEB RESP TX SCH ×5 (07:02→19:49)
[2017-02-16] MEDS: ASPIRIN 325 MG TABLET PO SCH (08:18)
[2017-02-16] MEDS: predniSONE 5 MG TABLET PO SCH (08:18)
[2017-02-16] MEDS: DOCUSATE SODIUM 100 MG CAPSULE PO SCH ×2 (08:18→21:51)
[2017-02-16] MEDS: FERROUS SULFATE 325 MG TABLET PO SCH (08:18)
[2017-02-16] MEDS: PANTOPRAZOLE 40 MG TABLET PO SCH (08:18)
[2017-02-16] MEDS: POTASSIUM CHLORIDE 20 MEQ TABLET PO SCH ×2 (08:18→21:51)
[2017-02-16] MEDS: MULTIVITAMIN (CENTRUM) TABLET PO SCH (08:18)
[2017-02-16] MEDS: CARVEDILOL 3.125 MG TABLET PO SCH ×2 (08:18→21:51)
[2017-02-16] MEDS: FUROSEMIDE 40 MG/4 ML VIAL IV SCH ×2 (08:19→16:39)
--- NOTE | 2017-02-16 08:29 | XRay Report ---
Portable chest Date: 02/16/2017 Clinical history: CHF/dyspnea Comparison: 02/14/2017 Technique: Portable AP sitting chest Findings: Persistent cardiomegaly in patient with prior median sternotomy and cardiac valve replacement. Progressive diffuse parenchymal findings with small pleural effusions. Stable mediastinum and osseous structures. Impression: Progressive mild CHF with small pleural effusions in patient with prior median sternotomy and cardiac valve replacement. Persistent cardiomegaly. PROCEDURE INTERPRETED AT [facility] DEPARTMENT OF RADIOLOGY Final Report Signed by: Dr. Tiffanie De Jesus
--- NOTE | 2017-02-16 09:36 | Cardiology Progress Note ---
Matt Chase Lesley, LEONOR, am scribing for, and in the presence of, Mathew Dixon MD 09:36. Assessment and Plan - Time spent with patient Time spent with patient: Greater than 30 minutes (Record review, assessment, documentation) Cardiology - PN: Subj Interval history: CONSERVATION PLANNER: DR. VELEZ SUMMARY: Ms. Schmidt is a 61-year-old BF, known to Dr. Velez. She was a direct admit after being seen in clinic 02/14/2017 with decompensated ischemic cardiomyopathy. Past medical history includes history of CVA, ischemic cardiomyopathy, COPD, combined systolic and diastolic CHF, dyslipidemia, hypertension, hypertensive heart disease with heart failure, non-rheumatic mitral regurgitation, anemia, paroxysmal atrial fibrillation, CAD, pleural effusion, pericardial effusion. Significant past surgical history includes mitral valve replacement with single KIMBERLEY free graft from the aorta to the LAD (), hysterectomy, s/p pericardiocentesis. Family history includes cancer in her father, mother has history of heart attack and diabetes. She was admitted for worsening lower extremity edema and orthopnea, productive thick sputum secretions, and chest discomfort. She describes her discomfort as a squeezing in her chest when she ambulates. She states that her discomfort was relieved with one Nitrostat. Walking in her home worsens her chest discomfort. She was admitted for diuresis and further evaluation of anginal symptoms. Her blood pressures been well controlled, oxygen saturation 100% on 2L this morning. Reviewing I's and O, the patient has diuresed approximately 2.5-3 L, weight confirms this. Labs reviewed today, the patient has a persistent leukopenia with WBCs 3.2 this morning. Hemoglobin and hematocrit are stable, 12 and 35. Potassium 3.4, will replete this. Creatinine 0.7, BUN 11, sodium 141, magnesium 1.9. Lipid panel with triglycerides 52, LDL 81, HDL 40. Free T4 and TSH unremarkable. Cardiac biomarkers slightly elevated in a plateaued pattern. Chest x-ray reveals improvement in atelectasis and pleural effusion in the left lung base and clearing of the right lung base when compared to a film from 09/2016. Cardiomegaly is noted with venous congestion. She continues to have a productive cough with thick white-worrell sputum noted. Telemetry monitoring strips reveal sinus rhythm, rate in the 80s. The patient did experience some desaturation (85%) during the night and was placed on 2L. She reports an episode of midsternal chest discomfort this morning, consistent with previous episodes. Plan is to continue diuresis, and monitor the patient closely for anginal symptoms. Consider left heart cath later in the week if no improvement with diuresis. ROS: No acute distress present: productive cough, dyspnea with exertion present: chest discomfort X 1 this morning IMPRESSION AND PLAN: ICM - EF 10-15%, severely increased left ventricular cavity size, mild LVH. CHF - systolic and diastolic, decompensated, acute on chronic. Continue diuresis , supplemental oxygen, monitor potassium and replete. CAD - continue ASA, Coreg, consider LHC once diuresed. ANGINA - one episode this morning, cardiac biomarkers with trivial elevation. Similar elevation last admission. DYSLIPIDEMIA - continue lipid lowering agents, controlled. Cardiology addendum Patient seen chart reviewed and discussed with nurse ROSALINE Purvis. Continue IV Lasix 40 mg twice daily BMP in a.m. O2 and nebs Exam (Progress Note) - Constitutional Vitals: Period Temp Pulse Resp BP Sys/Bower Pulse Ox Last 24 Hr 95.9 F-98.4 F 77-90 16-18 90-105/53-66 85-100 Exam: General: Appears well with no apparent distress. Pleasant and cooperative. Appears comfortable. HEENT: PERRL, normocephalic, atraumatic. Mucous membranes moist. No jaundice noted. Conjunctiva moist and clear, sclerae anicteric. Neck: No thyromegaly or lymphadenopathy noted. No carotid bruit appreciated. Cardiac: Regular rate and rhythm. No murmur rub or gallop. PMI is nondisplaced. Lungs: Left base breath sounds reduced, rales, right breath sounds clear to auscultation. Oxygen in use via nasal cannula. Abdomen: Soft, bowel sounds normoactive. Nontender and nondistended. No abdominal bruit or thrill noted. No masses noted. Musculoskeletal: Edema noted to BLE. Full range of motion is noted. Extremities: No clubbing, cyanosis noted. 1+ edema noted to bilateral LE. Upper extremity pulses 2+. Lower extremity pulses 2+. Capillary refill less than 3 seconds. Skin: No unusual lesions or rashes. No skin breakdown appreciated. Neuro: Awake, alert and oriented 3. Moves all extremities well without hemiparesis or paralysis. No essential tremor is appreciated. Result/EKG - Labs CBC & BMP: 02/16/17 04:47 02/16/17 04:47 Lab Results: I have reviewed the past 24 hour labs Labs: Laboratory Results - last 24 hr 02/14/17 02/14/17 02/14/17 11:51 11:51 11:51 WBC 3.4 L RBC 4.68 Hgb 12.9 Hct 37.8 MCV 80.8 L MCH 28 MCHC 34.1 RDW 14.7 Plt Count 183 MPV 10.2 Neut % (Auto) 60.2 Lymph % (Auto) 28.1 [place] % (Auto) 10.5 Eos % (Auto) 0.6 Baso % (Auto) 0.3 Neut # (Auto) 2.1 Lymph # (Auto) 1.0 L [place] # (Auto) 0.4 Eos # (Auto) 0.0 Baso # (Auto) 0.0 Total Counted Immature Gran % 0.3 Nucleated RBC % 0.0 Immature Gran # 0.01 Segmented Neutrophils Lymphocytes Monocytes Eosinophils Nucleated RBCs # 0.00 Platelet Estimate Giant Platelets Immature Plt Fraction 0.0 Hypochromasia Target Cells Ovalocytes Sodium 140 Potassium 3.4 L Chloride 102 Carbon Dioxide 32 Anion Gap 9.4 BUN 9 Creatinine 0.80 GFR Calculation 88 BUN/Creatinine Ratio 11.00 Glucose 96 Calculated Osmolality 277.4 Calcium 8.9 Magnesium 2.0 Troponin I 0.083 H Triglycerides Cholesterol LDL Cholesterol VLDL Cholesterol HDL Cholesterol Heart Disease Risk Ratio Free T4 TSH 3rd Generation 02/14/17 02/14/17 02/14/17 14:39 16:04 17:14 WBC RBC Hgb Hct MCV MCH MCHC RDW Plt Count MPV Neut % (Auto) Lymph % (Auto) [place] % (Auto) Eos % (Auto) Baso % (Auto) Neut # (Auto) Lymph # (Auto) [place] # (Auto) Eos # (Auto) Baso # (Auto) Total Counted Immature Gran % Nucleated RBC % Immature Gran # Segmented Neutrophils Lymphocytes Monocytes Eosinophils Nucleated RBCs # Platelet Estimate Giant Platelets Immature Plt Fraction Hypochromasia Target Cells Ovalocytes Sodium Potassium Chloride Carbon Dioxide Anion Gap BUN Creatinine GFR Calculation BUN/Creatinine Ratio Glucose Calculated Osmolality Calcium Magnesium Troponin I 0.075 H 0.075 H Triglycerides Cholesterol LDL Cholesterol VLDL Cholesterol HDL Cholesterol Heart Disease Risk Ratio Free T4 1.23 TSH 3rd Generation 0.989 02/15/17 02/15/17 04:24 04:24 WBC 3.2 L RBC 4.49 Hgb 12.3 Hct 35.5 L MCV 79.1 L MCH 27 MCHC 34.6 RDW 14.5 Plt Count 165 MPV 10.7 Neut % (Auto) 52.1 Lymph % (Auto) 29.2 [place] % (Auto) 17.2 H Eos % (Auto) 0.6 Baso % (Auto) 0.6 Neut # (Auto) 1.7 Lymph # (Auto) 0.9 L [place] # (Auto) 0.6 Eos # (Auto) 0.0 Baso # (Auto) 0.0 Total Counted 100 Immature Gran % 0.3 Nucleated RBC % 0.0 Immature Gran # 0.01 Segmented Neutrophils 57 Lymphocytes 22 Monocytes 18 H Eosinophils 3 Nucleated RBCs # 0.00 Platelet Estimate Normal Giant Platelets Few Immature Plt Fraction 0.0 Hypochromasia 1+ Target Cells Few Ovalocytes Slight Sodium 141 Potassium 3.4 L Chloride 102 Carbon Dioxide 31 Anion Gap 11.4 BUN 11 Creatinine 0.70 GFR Calculation 103 BUN/Creatinine Ratio 15.00 Glucose 89 Calculated Osmolality 278.3 Calcium 8.5 Magnesium 1.9 Troponin I Triglycerides 52 Cholesterol 126 LDL Cholesterol 81.0 VLDL Cholesterol 10.4 HDL Cholesterol 40 Heart Disease Risk Ratio 3.15 Free T4 TSH 3rd Generation - Diagnostic Findings Procedure: Chest x-ray: report reviewed by me - EKG EKG results: sinus rhythm I, Mathew Dixon MD, personally performed the services described in this documentation, ascribed by Lorelei Gutierrez NP in my presence, and it is both accurate and complete .
--- NOTE | 2017-02-16 09:48 | Cardiology Progress Note ---
Cardiology - PN: Subj Interval history: Cardiology note 61 year old woman with cardiomyopathy, admitted with recurrent CHF. Telemetry shows controlled atrial fib. O2 sat 99 on 2 L cannula. Blood pressure 110/72 Irregular rhythm systolic murmur and diastolic rumble. Echo shows severe global hypokinesis ejection fraction 10-15% moderate dilated left atrium, Well-seated passed prosthetic mitral valve with pannus formation. V-max 2.25 m/ s, maximum gradient 20 and mean gradient 8 across the valve consistent with prosthetic mitral valve stenosis with trivial MR. Also has moderate TR PA pressure 50 with no effusion. Chest x-ray shows moderate cardiomegaly CHF and small effusions Impression Cardiomyopathy EF 10-15% recurrent CHF Status post #27 pericardial MVR and single-vessel CABG with a free RODRIGUEZ to the LAD July 07, 2015. Last cardiac cath July 31, 2015 showed ejection fraction 20% with severe MR, severe tandem LAD stenosis, occluded OM, occluded mid right coronary. Active smoker Frailty Lab data today white count 3.7 hemoglobin 11.3 hematocrit 33.5 MCV 80 Sodium 141 potassium 4.2 chloride 105 CO2 31 BUN 14 creatinine 0.7 magnesium 1.7 Plan Duo nebs NicoDerm patch 40 mg IV Lasix twice daily BMP in a.m. Coreg 3.125 g twice daily Digoxin 0.125 mg daily Exam (Progress Note) - Constitutional Vitals: Period Temp Pulse Resp BP Sys/Bower Pulse Ox Last 24 Hr 96.6 F-98 F 66-88 16-20 93-115/50-69 95-100 Result/EKG - Labs CBC & BMP: 02/16/17 04:47 02/16/17 04:47 Labs: Laboratory Results - last 24 hr 02/16/17 02/16/17 04:47 04:47 WBC 3.7 L RBC 4.15 Hgb 11.3 L Hct 33.5 L MCV 80.7 L MCH 27 MCHC 33.7 RDW 14.7 Plt Count 160 MPV 11.0 Neut % (Auto) 58.3 Lymph % (Auto) 26.2 [place] % (Auto) 13.9 H Eos % (Auto) 0.8 Baso % (Auto) 0.3 Neut # (Auto) 2.1 Lymph # (Auto) 1.0 L [place] # (Auto) 0.5 Eos # (Auto) 0.0 Baso # (Auto) 0.0 Immature Gran % 0.5 Nucleated RBC % 0.0 Immature Gran # 0.02 Nucleated RBCs # 0.00 Immature Plt Fraction 0.0 Sodium 141 Potassium 4.2 Chloride 105 Carbon Dioxide 31 Anion Gap 9.2 BUN 14 Creatinine 0.70 GFR Calculation 102 BUN/Creatinine Ratio 20.00 Glucose 77 Calculated Osmolality 280.3 Calcium 8.5 Magnesium 1.7 L
[2017-02-16] MEDS: NICOTINE 14 MG/24 HR PATCH TRANSDERM SCH (11:45)
[2017-02-16] MEDS: DIGOXIN 0.125 MG TABLET PO SCH (13:33)
[2017-02-16] MEDS: ATORVASTATIN 40 MG TABLET PO SCH (21:51)
[2017-02-16] MEDS: MONTELUKAST 10 MG TABLET PO SCH (21:51)
[2017-02-17 04:10] LABS: Basophils % 0.6 % (0.0-0.8); Eosinophils % 0.8 % (0.00-10.9); Hematocrit 36.1 VOL% (35.7-47.0); Hemoglobin 12.1 GM/DL (12.0-16.0); Immature Granulocytes % 0.2 %; Immature Granulocytes Absolute 0.01 #; Lymphocytes # 1.4 10*3/uL (1.4-4.0); Lymphocytes % 26.9 % (21.3-54.2); Mean Corpuscular HGB Conc 33.5 GM/DL (32-36); Mean Corpuscular Hemoglobin 27 PG (27-34); Mean Corpuscular Volume 81.7 FL (87-102); Mean Platelet Volume 11.2 FL (9.6-12.0); Monocytes # 0.7 10*3/uL (0.11-0.8); Monocytes % 12.9 % (1.7-12.7); Neutrophils % 58.6 % (38.7-73.9); Platelet Count 189 T/CUMM (130-400); Red Blood Count 4.42 MC/CUMM (3.8-5.5); Red Cell Distribution Width 14.8 % (9.3-17.3); White Blood Count 5.1 T/CUMM (4-12)
[2017-02-17 04:38] LABS: Osmolality,Calculated 279.4 MOS/KG (273-304); Potassium 4.7 MMOL/L (3.5-5.1)
[2017-02-17] MEDS: ALBUTEROL/IPRATROPIUM 3 ML NEB RESP TX SCH ×4 (07:32→19:33)
[2017-02-17] MEDS: NICOTINE 14 MG/24 HR PATCH TRANSDERM SCH (08:37)
[2017-02-17] MEDS: CARVEDILOL 3.125 MG TABLET PO SCH ×2 (08:38→20:53)
[2017-02-17] MEDS: PANTOPRAZOLE 40 MG TABLET PO SCH (08:38)
[2017-02-17] MEDS: POTASSIUM CHLORIDE 20 MEQ TABLET PO SCH ×2 (08:38→20:53)
[2017-02-17] MEDS: DOCUSATE SODIUM 100 MG CAPSULE PO SCH ×2 (08:38→20:53)
[2017-02-17] MEDS: MULTIVITAMIN (CENTRUM) TABLET PO SCH (08:38)
[2017-02-17] MEDS: predniSONE 5 MG TABLET PO SCH (08:38)
[2017-02-17] MEDS: FERROUS SULFATE 325 MG TABLET PO SCH (08:38)
[2017-02-17] MEDS: ASPIRIN 325 MG TABLET PO SCH (08:38)
[2017-02-17] MEDS: FUROSEMIDE 40 MG/4 ML VIAL IV SCH ×2 (08:39→16:32)
--- NOTE | 2017-02-17 12:18 | Cardiology Progress Note ---
Cardiology - PN: Subj Interval history: Cardiology note 61-year-old woman with cardiomyopathy and recurrent CHF. Weight today down to 56.7 kg. Admission weight 58.9 kg. Telemetry shows controlled A. fib occasional PVCs O2 sat 97% on 2 L cannula Blood pressure 100/50 in the right arm by me Irregular rhythm systolic murmur and diastolic rumble Decreased breath sounds with bibasilar crackles Abdomen soft nontender No leg edema Lab data today Sodium 140 potassium 4.7 chloride 102 CO2 29 BUN of 18 creatinine 0.80 glucose 87 White count 5.1 hemoglobin 12.1 hematocrit 36.1 Impression Cardiomyopathy EF 10-15% Recurrent CHF Status post #27 pericardial MVR and single-vessel CABG with a free RODRIGUEZ to LAD July 07, 2015 Last cardiac cath July 31, 2015 showed ejection fraction 20% with severe MR, severe tandem LAD lesions, occluded OM, occluded right coronary Active smoker Frailty Plan NicoDerm patch Duo nebs 40 mg IV Lasix twice daily Coreg 3.125 mg twice daily Digoxin 0.125 mg daily BMP in a.m. Exam (Progress Note) - Constitutional Vitals: Period Temp Pulse Resp BP Sys/Bower Pulse Ox Last 24 Hr 96.2 F-98.4 F 16-85 16-76 93-129/54-77 94-100 Result/EKG - Labs CBC & BMP: 02/17/17 02:37 02/17/17 02:37 Labs: Laboratory Results - last 24 hr 02/17/17 02/17/17 02:37 02:37 WBC 5.1 D RBC 4.42 Hgb 12.1 Hct 36.1 MCV 81.7 L MCH 27 MCHC 33.5 RDW 14.8 Plt Count 189 MPV 11.2 Neut % (Auto) 58.6 Lymph % (Auto) 26.9 [place] % (Auto) 12.9 H Eos % (Auto) 0.8 Baso % (Auto) 0.6 Neut # (Auto) 3.0 Lymph # (Auto) 1.4 [place] # (Auto) 0.7 Eos # (Auto) 0.0 Baso # (Auto) 0.0 Immature Gran % 0.2 Nucleated RBC % 0.0 Immature Gran # 0.01 Nucleated RBCs # 0.00 Immature Plt Fraction 0.0 Sodium 140 Potassium 4.7 Chloride 102 Carbon Dioxide 29 Anion Gap 13.7 BUN 18 Creatinine 0.80 GFR Calculation 86 BUN/Creatinine Ratio 22.00 H Glucose 87 Calculated Osmolality 279.4 Calcium 9.0
[2017-02-17] MEDS: DIGOXIN 0.125 MG TABLET PO SCH (13:58)
[2017-02-17] MEDS: ATORVASTATIN 40 MG TABLET PO SCH (20:53)
[2017-02-17] MEDS: MONTELUKAST 10 MG TABLET PO SCH (20:53)
[2017-02-18 06:17] LABS: Basophils % 0.7 % (0.0-0.8); Eosinophils % 0.7 % (0.00-10.9); Hematocrit 38.9 VOL% (35.7-47.0); Immature Granulocytes % 0.2 %; Immature Granulocytes Absolute 0.01 #; Lymphocytes # 1.1 10*3/uL (1.4-4.0); Lymphocytes % 25.2 % (21.3-54.2); Mean Corpuscular HGB Conc 33.4 GM/DL (32-36); Mean Corpuscular Hemoglobin 27 PG (27-34); Mean Corpuscular Volume 80.5 FL (87-102); Mean Platelet Volume 11.4 FL (9.6-12.0); Monocytes # 0.6 10*3/uL (0.11-0.8); Monocytes % 14.5 % (1.7-12.7); Neutrophils # 2.6 10*3/uL (1.4-7.4); Neutrophils % 58.7 % (38.7-73.9); Platelet Count 192 T/CUMM (130-400); Red Blood Count 4.83 MC/CUMM (3.8-5.5); Red Cell Distribution Width 15.2 % (9.3-17.3); White Blood Count 4.4 T/CUMM (4-12)
[2017-02-18 06:44] LABS: Calcium 9.4 MG/DL (8.5-10.1); Osmolality,Calculated 281.3 MOS/KG (273-304); Potassium 4.4 MMOL/L (3.5-5.1)
[2017-02-18 06:47] LABS: Calcium 9.5 MG/DL (8.5-10.1); Osmolality,Calculated 283.1 MOS/KG (273-304); Potassium 4.4 MMOL/L (3.5-5.1)
[2017-02-18] MEDS: ALBUTEROL/IPRATROPIUM 3 ML NEB RESP TX SCH ×4 (07:51→20:16)
[2017-02-18] MEDS: POTASSIUM CHLORIDE 20 MEQ TABLET PO SCH ×2 (08:01→20:25)
[2017-02-18] MEDS: ASPIRIN 325 MG TABLET PO SCH (08:01)
[2017-02-18] MEDS: predniSONE 5 MG TABLET PO SCH (08:01)
[2017-02-18] MEDS: PANTOPRAZOLE 40 MG TABLET PO SCH (08:01)
[2017-02-18] MEDS: CARVEDILOL 3.125 MG TABLET PO SCH ×2 (08:01→20:26)
[2017-02-18] MEDS: FERROUS SULFATE 325 MG TABLET PO SCH (08:01)
[2017-02-18] MEDS: DOCUSATE SODIUM 100 MG CAPSULE PO SCH ×2 (08:02→20:25)
[2017-02-18] MEDS: FUROSEMIDE 40 MG/4 ML VIAL IV SCH (08:02)
[2017-02-18] MEDS: NICOTINE 14 MG/24 HR PATCH TRANSDERM SCH (08:02)
[2017-02-18] MEDS: MULTIVITAMIN (CENTRUM) TABLET PO SCH (08:02)
--- NOTE | 2017-02-18 08:47 | Cardiology Progress Note ---
Cardiology - PN: Subj Interval history: Cardiology note 60-year-old woman with cardiomyopathy and recurrent CHF. Weight today is down to 55.3 kg. Admission weight 58.9 kg O2 sat 97 on room air Blood pressure 102/60 the right arm by me Telemetry shows controlled atrial fibrillation occasional PVCs Irregular rhythm systolic murmur and diastolic rumble Decreased breath sounds with few basilar crackles Abdomen nontender No leg edema Lab data today White count 4.4 hemoglobin 13.0 hematocrit 38.9 Sodium 141 potassium 4.4 chloride 102 CO2 31 BUN 18 creatinine 0.80 Glucose 75 magnesium 2.0 Impression Cardiomyopathy EF 10-15% Recurrent CHF Status post #27 pericardial MVR and single-vessel CABG with free RODRIGUEZ to LAD July 07, 2015 Last cardiac cath July 2015 showed ejection fraction 20% with severe MR, severe tandem LAD lesions, occluded OM, occluded right coronary Active smoker Frailty COPD Plan NicoDerm patch Duo nebs Coreg 3.125 mg twice daily Digoxin 0.125 g daily DC IV Lasix Begin Lasix 40 mg p.o. twice daily BMP in a.m. Lisinopril 2.5 mg daily home tomorrow Exam (Progress Note) - Constitutional Vitals: Period Temp Pulse Resp BP Sys/Bower Pulse Ox Last 24 Hr 97.1 F-98.6 F 74-90 16-20 86-109/51-64 95-100 Result/EKG - Labs CBC & BMP: 02/18/17 05:03 02/18/17 05:03 Labs: Laboratory Results - last 24 hr 02/18/17 02/18/17 02/18/17 05:03 05:03 05:03 WBC 4.4 RBC 4.83 Hgb 13.0 Hct 38.9 MCV 80.5 L MCH 27 MCHC 33.4 RDW 15.2 Plt Count 192 MPV 11.4 Neut % (Auto) 58.7 Lymph % (Auto) 25.2 [place] % (Auto) 14.5 H Eos % (Auto) 0.7 Baso % (Auto) 0.7 Neut # (Auto) 2.6 Lymph # (Auto) 1.1 L [place] # (Auto) 0.6 Eos # (Auto) 0.0 Baso # (Auto) 0.0 Immature Gran % 0.2 Nucleated RBC % 0.0 Immature Gran # 0.01 Nucleated RBCs # 0.00 Immature Plt Fraction 0.0 Sodium 142 141 Potassium 4.4 4.4 Chloride 102 102 Carbon Dioxide 31 31 Anion Gap 13.4 12.4 BUN 18 18 Creatinine 0.80 0.80 GFR Calculation 85 85 BUN/Creatinine Ratio 22.00 H 22.00 H Glucose 78 75 Calculated Osmolality 283.1 281.3 Calcium 9.5 9.4 Magnesium 2.0
[2017-02-18] MEDS: LISINOPRIL 2.5 MG TABLET PO SCH (09:48)
[2017-02-18] MEDS: DIGOXIN 0.125 MG TABLET PO SCH (12:48)
[2017-02-18] MEDS: FUROSEMIDE 40 MG TABLET PO SCH (15:33)
[2017-02-18] MEDS: MONTELUKAST 10 MG TABLET PO SCH (20:25)
[2017-02-18] MEDS: ATORVASTATIN 40 MG TABLET PO SCH (20:25)
[2017-02-19 05:26] LABS: Basophils % 0.8 % (0.0-0.8); Eosinophils % 0.8 % (0.00-10.9); Hematocrit 37.8 VOL% (35.7-47.0); Hemoglobin 12.8 GM/DL (12.0-16.0); Immature Granulocytes % 0.4 %; Immature Granulocytes Absolute 0.02 #; Lymphocytes # 1.3 10*3/uL (1.4-4.0); Lymphocytes % 26.7 % (21.3-54.2); Mean Corpuscular HGB Conc 33.9 GM/DL (32-36); Mean Corpuscular Hemoglobin 27 PG (27-34); Mean Corpuscular Volume 80.1 FL (87-102); Monocytes # 0.7 10*3/uL (0.11-0.8); Monocytes % 14.6 % (1.7-12.7); Neutrophils # 2.8 10*3/uL (1.4-7.4); Neutrophils % 56.7 % (38.7-73.9); Platelet Count 191 T/CUMM (130-400); Red Blood Count 4.72 MC/CUMM (3.8-5.5); Red Cell Distribution Width 14.6 % (9.3-17.3); White Blood Count 4.9 T/CUMM (4-12)
[2017-02-19 05:48] LABS: Calcium 8.9 MG/DL (8.5-10.1); Magnesium 2.4 MG/DL (1.8-2.4); Osmolality,Calculated 280.4 MOS/KG (273-304); Osmolality,Calculated 282.3 MOS/KG (273-304); Potassium 4.8 MMOL/L (3.5-5.1)
[2017-02-19] MEDS: ALBUTEROL/IPRATROPIUM 3 ML NEB RESP TX SCH ×3 (06:56→14:38)
[2017-02-19] MEDS: DOCUSATE SODIUM 100 MG CAPSULE PO SCH (09:33)
[2017-02-19] MEDS: ASPIRIN 325 MG TABLET PO SCH (09:34)
[2017-02-19] MEDS: predniSONE 5 MG TABLET PO SCH (09:34)
[2017-02-19] MEDS: CARVEDILOL 3.125 MG TABLET PO SCH (09:34)
[2017-02-19] MEDS: MULTIVITAMIN (CENTRUM) TABLET PO SCH (09:34)
[2017-02-19] MEDS: POTASSIUM CHLORIDE 20 MEQ TABLET PO SCH (09:34)
[2017-02-19] MEDS: PANTOPRAZOLE 40 MG TABLET PO SCH (09:34)
[2017-02-19] MEDS: LISINOPRIL 2.5 MG TABLET PO SCH (09:34)
[2017-02-19] MEDS: FUROSEMIDE 40 MG TABLET PO SCH (09:34)
[2017-02-19] MEDS: NICOTINE 14 MG/24 HR PATCH TRANSDERM SCH (09:35)
[2017-02-19] MEDS: FERROUS SULFATE 325 MG TABLET PO SCH (09:35)
[2017-02-19 11:29] VITALS: BP 93/53
--- NOTE | 2017-02-19 11:32 | Order Completion Report ---
See report scanned to EMR
[2017-02-19] MEDS: DIGOXIN 0.125 MG TABLET PO SCH (12:51)
--- NOTE | 2017-02-19 14:25 | Discharge Summary ---
Matt Chase Lesley, LEONOR, am scribing for, and in the presence of, Jewel Ibarra MD 14:21. Hospital Course - Hospital Course Hospital Course: Ms. Schmidt is followed by Dr. Figueroa and was managed by Dr. Dixon during his hospital stay. Martinez was admitted from cardiology clinic due to acutely decompensated ischemic cardiomyopathy and suspected unstable angina. The patient is status post #27 pericardial in the ER and single-vessel CABG with a free RODRIGUEZ to the LAD . Most recent cardiac cath 07/31/15 revealed EF 20% with severe MR, severe tandem LAD stenosis, occluded OM, occluded mid RCA. The patient is an active smoker. She was seen by Dr. Figueroa in clinic, and was sent to ER for admission. The patient was diuresed while closely monitoring. Cardiac enzymes were slightly elevated in a plateau pattern, anginal symptoms resolved as patient was diuresed. EF is 10-15%, with systolic and diastolic heart failure. Patient was given supplemental oxygen and neb treatments. Chest x-ray revealed moderate cardiomegaly, CHF, and small effusions. The patient was evaluated by cardiac rehab. She was started on NicoDerm patches, and we have discussed smoking cessation plan multiple times. Today, she is in good spirits, not symptomatic with light activity. Able to ambulate without issues. She diuresed several liters over the past 5 days, the edema resolved. Renal function remained stable, blood pressure trending borderline low, systolic 90-110. Discharge medications: ASA 325 mg p.o. daily Atorvastatin 40 mg p.o. nightly Carvedilol 3.125 mg p.o. twice daily Digoxin 0.125 mg p.o. daily Furosemide 40 mg p.o. twice daily Lisinopril 2.5 mg p.o. daily Nicotine patch 14 mg transdermal daily Potassium chloride 20mEq p.o. twice daily Combivent inhaler as needed Follow-up with Dr. Gerber in 2 weeks. Recheck BMP/magnesium - Time spent with patient Time with patient DS: Greater than 30 minutes (Record review, medication review , assessment, documentation) Diagnosis - Discharge Diagnosis (1) Ischemic dilated cardiomyopathy Status: Chronic Specialty Discharge - Follow Up or Referrals Follow up with: Carina Figueroa DO [Physician] - 2 Weeks (EKG, BMP with mag prior to appointment) Discharge Plan - Discharge Data Disposition: Disch To Home/Self Care Condition at Discharge: Stable Discharge Diet: heart healthy Activity: resume usual activities as tolerated Hygiene: no restrictions Weight Bearing at Discharge: full weight bearing Driving: no restrictions Contact your physician if you experience:: fever over 101, Difficulty voiding, Redness or swelling, Nausea/Vomiting, Shortness of breath, Bleeding, pain uncontrolled by pain medications - Discharge Medications New RX: Lisinopril [Prinivil] 2.5 mg PO DAILY #30 tablet RX: Nicotine 14 mg/24 Hr Patch [Nicoderm CQ 14 mg/24 hr Patch] 1 patch TRANSDERM DAILY #30 patch RX: Potassium Chloride Cap/Tab [K Dur] 20 meq PO BID #60 tablet RX: Furosemide Tab [Lasix Tab] 40 mg PO BID DIURETIC #60 tablet Continue RX: Ferrous Sulfate 325 mg PO DAILY RX: Docusate Sodium Cap [Colace Cap] 100 mg PO DAILY RX: Montelukast Tab [Singulair Tab] 10 mg PO BEDTIME RX: Aspirin 325 mg PO DAILY RX: Nitroglycerin [Nitroglycerin SL Tab] 0.4 mg SL DIRECTED PRN MDD 3 tabs PRN Reason: Chest Pain RX: Digoxin 125 mcg PO 1300 RX: Atorvastatin [Lipitor] 40 mg PO BEDTIME #30 tablet RX: Pantoprazole Tab [Protonix Tab] 40 mg PO DAILY PRN #30 tablet PRN Reason: Gastroesophageal reflux sympto RX: Multivit-Min/FA/Lycopen/Lutein [Centrum Silver Tablet] 1 each PO DAILY RX: Ferrous Sulfate [Ferrous Sulfate Cap] 325 mg PO DAILY RX: Carvedilol 3.125 mg PO BID RX: predniSONE [Prednisone] 5 mg PO DAILY RX: Phenylephrine/Dm/Acetaminop/GG [Mucinex Fast-Max Cold, Flu & Sore Throat ] 1 tablet PO DAILY PRN PRN Reason: Cough Changed RX: Ipratropium/Albuterol Inhaler [Combivent Respimat Inhaler] 1 puff INH QID PRN #1 MDD 6puffs PRN Reason: Shortness Of Breath/Wheezing Discontinued RX: Docusate Sodium Cap [Colace Cap] 100 mg PO DAILY Furosemide Tab [Lasix Tab] 40 mg PO DAILY - Follow Up or Referral Follow Up: Carina Figueroa DO [Physician] - 2 Weeks (EKG, BMP with mag prior to appointment) - Forms/Instructions Instructions: Hypertrophic Cardiomyopathy (GEN), How to Stop Smoking (GEN), Heart Healthy Diet (GEN), Cigarette Smoking and Your Health (GEN) Exam - Constitutional Vitals: Period Temp Pulse Resp BP Sys/Bower Pulse Ox Last 24 Hr 96.5 F-98.5 F 71-93 15-20 87-108/50-68 92-100 Exam: General: Appears well with no apparent distress. Pleasant and cooperative. Appears comfortable. HEENT: PERRL, normocephalic, atraumatic. Mucous membranes moist. No jaundice noted. Conjunctiva moist and clear, sclerae anicteric. Neck: No thyromegaly or lymphadenopathy noted. No carotid bruit appreciated. Cardiac: Regular rate and rhythm. Systolic murmur, no rub or gallop. PMI is nondisplaced. Lungs: Rhonchi bilaterally, bilateral breath sounds decreased. No oxygen required. Abdomen: Soft, bowel sounds normoactive. Nontender and nondistended. No abdominal bruit or thrill noted. No masses noted. Musculoskeletal: No edema noted to BLE. Full range of motion is noted. Extremities: No clubbing, cyanosis noted. No edema noted to bilateral LE. Upper extremity pulses 2+. Lower extremity pulses 2+. Capillary refill less than 3 seconds. Skin: Warm and dry. No unusual lesions or rashes. No skin breakdown appreciated. Neuro: Awake, alert and oriented 3. Moves all extremities well without hemiparesis or paralysis. No essential tremor is appreciated. Discharge Results Labs on day of discharge: Labs from last 24 hours 02/19/17 02/19/17 02/19/17 04:54 04:54 04:54 WBC 4.9 RBC 4.72 Hgb 12.8 Hct 37.8 MCV 80.1 L MCH 27 MCHC 33.9 RDW 14.6 Plt Count 191 MPV 10.0 Neut % (Auto) 56.7 Lymph % (Auto) 26.7 [place] % (Auto) 14.6 H Eos % (Auto) 0.8 Baso % (Auto) 0.8 Neut # (Auto) 2.8 Lymph # (Auto) 1.3 L [place] # (Auto) 0.7 Eos # (Auto) 0.0 Baso # (Auto) 0.0 Immature Gran % 0.4 Nucleated RBC % 0.0 Immature Gran # 0.02 Nucleated RBCs # 0.00 Immature Plt Fraction 0.0 Sodium 140 141 Potassium 4.8 4.8 Chloride 102 103 Carbon Dioxide 31 31 Anion Gap 11.8 11.8 BUN 22 H 21 H Creatinine 0.80 0.90 GFR Calculation 85 73 BUN/Creatinine Ratio 27.00 H 23.00 H Glucose 87 89 Calculated Osmolality 280.4 282.3 Calcium 8.9 9.0 Magnesium 2.4 - Imaging and Cardiology Cardiology Procedure: report reviewed by me (Echocardiogram EF 10-15%, severe global hypokinesis, grade 2 diastolic dysfunction, moderately dilated left atrium, mildly dilated right atrium, hypokinetic right ventricle, aortic valve sclerosis, trivial AI, well-seated bioprosthetic mitral valve with pannus formation, the max 2.25 M/S, maximum gradient 20 mmHg mean gradient 8, severe prosthetic mitral valve stenosis, trivial MR, structurally normal tricuspid valve, moderate TR, PA P 50 mmHg, pulmonic valve not well seen, no pericardial effusion, no pleural effusion.) Procedure: Chest x-ray: report reviewed by me DS: Provider Consults: 02/14/17 12:06 Consult to Pastoral Services [CONS] Routine Comment: Pastoral Screen: Declines Visit Pastoral Screen Source of Request: Patient 02/19/17 11:23 Consult to Cardiac Rehabilitation [CONS] Routine Reason for Cardiac Rehabilitation: Risk Factor Modification Expected date of discharge: 02/19/17 Stacey Chase Attila, MD, personally performed the services described in this documentation, ascribed by Lorelei Gutierrez NP in my presence, and it is both accurate and complete [id number] .
== END 2017-02-19 15:59 | disposition home or self-care (01) | DRG 302 ==
LOC: N.TELES 11:11
PROVIDERS: ADMIT Internal Medicine Cardiovascular Disease; ATTEND Internal Medicine Cardiovascular Disease

== ENCOUNTER 2017-06-20 09:07 | Observation (INO) ==
[2017-06-20] MEDS ORDERED: MAGNESIUM HYDROXIDE SUSP 30 ML UDCUP PO PRN (09:59)
[2017-06-20] MEDS ORDERED: MAGNESIUM SULF RIDER 4 GM in PREMIX 1 EACH IV PRN (09:59)
[2017-06-20] MEDS ORDERED: MAGNESIUM SULF RIDER 2 GM in PREMIX 1 EACH IV PRN ×2 (09:59→14:53)
[2017-06-20] MEDS ORDERED: MORPHINE 2 MG/1 ML SYRINGE IV PRN (09:59)
[2017-06-20] MEDS ORDERED: ACETAMINOPHEN 325 MG TABLET PO PRN (09:59)
[2017-06-20] MEDS ORDERED: BISACODYL 5 MG TABLET PO PRN (09:59)
[2017-06-20] MEDS ORDERED: ONDANSETRON 4 MG/2 ML VIAL IV PRN (09:59)
[2017-06-20] MEDS ORDERED: POTASSIUM CHLORIDE 20 MEQ TABLET PO PRN ×2 (09:59)
[2017-06-20 13:50] LABS: Basophils % 0.6 % (0.0-0.8); Eosinophils % 1.2 % (0.00-10.9); Hematocrit 39.9 VOL% (35.7-47.0); Hemoglobin 12.7 GM/DL (12.0-16.0); Immature Granulocytes % 0.3 %; Immature Granulocytes Absolute 0.01 #; Lymphocytes # 1.1 10*3/uL (1.4-4.0); Lymphocytes % 32.5 % (21.3-54.2); Mean Corpuscular HGB Conc 31.8 GM/DL (32-36); Mean Corpuscular Hemoglobin 28 PG (27-34); Mean Corpuscular Volume 86.6 FL (87-102); Mean Platelet Volume 10.9 FL (9.6-12.0); Monocytes # 0.6 10*3/uL (0.11-0.8); Monocytes % 16.9 % (1.7-12.7); Neutrophils # 1.6 10*3/uL (1.4-7.4); Neutrophils % 48.5 % (38.7-73.9); Platelet Count 141 T/CUMM (130-400); Red Blood Count 4.61 MC/CUMM (3.8-5.5); Red Cell Distribution Width 15.5 % (9.3-17.3); White Blood Count 3.4 T/CUMM (4-12)
[2017-06-20 14:01] LABS: INR 1.1; PT Patient Result 11.1 SECS
[2017-06-20 14:19] LABS: Albumin 3.9 G/DL (3.4-5.0); Bilirubin,Total 0.5 MG/DL (0.2-1.0); Calcium 9.5 MG/DL (8.5-10.1); Osmolality,Calculated 284.1 MOS/KG (273-304); Potassium 3.8 MMOL/L (3.5-5.1); Total Protein 7.2 G/DL (6.4-8.3)
[2017-06-20] MEDS: SODIUM CHLORIDE 0.45% 1,000 ML IV SCH (14:21)
[2017-06-20] MEDS ORDERED: POTASSIUM CHLORIDE RIDER 10 MEQ in PREMIX 1 EACH IV PRN (14:53)
[2017-06-20 15:24] LABS: Band Neutrophils 2 % (0-10); Eosinophils 1 % (0-10); Lymphocytes 34 % (20-55); Platelet Estimate Decreased; Segmented Neutrophils 47 % (50-85); Total Cells Counted 100
[2017-06-20] MEDS ORDERED: ALBUTEROL/IPRATROPIUM 3 ML NEB RESP TX PRN (16:18)
[2017-06-20] MEDS: SACUBITRIL/VALSARTAN 49-51 MG TABLET PO SCH (22:42)
[2017-06-20] MEDS: ZALEPLON 5 MG CAPSULE PO PRN (22:42)
[2017-06-20] MEDS: CARVEDILOL 3.125 MG TABLET PO SCH (22:42)
[2017-06-20] MEDS: POTASSIUM CHLORIDE 20 MEQ TABLET PO SCH (22:42)
[2017-06-21] MEDS: SODIUM CHLORIDE 0.45% 1,000 ML IV SCH ×2 (02:48→12:02)
[2017-06-21] MEDS: NITROGLYCERIN SL 0.4 MG TABLET SL PRN ×2 (03:52→22:51)
[2017-06-21 05:39] LABS: VLDL CHOLESTEROL 10.2 MG/DL
[2017-06-21] MEDS ORDERED: LIDOCAINE 1% 20 ML VIAL ONE (07:07)
[2017-06-21] MEDS ORDERED: HEPARIN/NACL 0.9% 2 UNITS/ML 1,000 ML IV ONE (07:07)
[2017-06-21] MEDS ORDERED: DIAZEPAM 5 MG TABLET PO ONE (08:00)
[2017-06-21] MEDS ORDERED: diphenhydrAMINE CAP 25 MG CAPSULE PO ONE (08:00)
[2017-06-21] MEDS ORDERED: VERAPAMIL 5 MG/2 ML VIAL ONE (08:25)
[2017-06-21] MEDS ORDERED: MIDAZOLAM 2 MG/2 ML VIAL ONE (08:25)
[2017-06-21] MEDS ORDERED: HYDROmorphone 2 MG/1 ML VIAL ONE (08:25)
[2017-06-21] MEDS ORDERED: NITROGLYCERIN DRIP 50 MG/250 ML BOTTLE IV ONE (08:25)
[2017-06-21] MEDS ORDERED: ENOXAPARIN 30 MG/0.3 ML SYRINGE ONE (08:47)
[2017-06-21] MEDS ORDERED: SODIUM CHLORIDE 0.9% 1,000 ML IV SCH (10:00)
[2017-06-21] MEDS: FUROSEMIDE 40 MG TABLET PO SCH ×2 (11:04→15:39)
[2017-06-21] MEDS: SACUBITRIL/VALSARTAN 49-51 MG TABLET PO SCH ×2 (11:04→22:46)
[2017-06-21] MEDS: metOLazone 2.5 MG TABLET PO SCH (11:05)
[2017-06-21] MEDS: POTASSIUM CHLORIDE 20 MEQ TABLET PO SCH ×2 (11:08→22:46)
[2017-06-21] MEDS: NICOTINE 14 MG/24 HR PATCH TRANSDERM SCH (11:08)
[2017-06-21] MEDS: CARVEDILOL 3.125 MG TABLET PO SCH ×2 (11:08→22:48)
[2017-06-21] MEDS: MULTIVITAMIN (CENTRUM) TABLET PO SCH (11:09)
[2017-06-21] MEDS: DOCUSATE SODIUM 100 MG CAPSULE PO SCH (11:09)
[2017-06-21] MEDS ORDERED: ATORVASTATIN 40 MG TABLET PO SCH (21:00)
[2017-06-21] MEDS: ZALEPLON 5 MG CAPSULE PO PRN (22:46)
[2017-06-22 05:15] LABS: Basophils % 0.3 % (0.0-0.8); Eosinophils % 0.9 % (0.00-10.9); Hemoglobin 11.3 GM/DL (12.0-16.0); Immature Granulocytes % 0.3 %; Immature Granulocytes Absolute 0.01 #; Lymphocytes # 0.9 10*3/uL (1.4-4.0); Mean Corpuscular HGB Conc 32.3 GM/DL (32-36); Mean Corpuscular Hemoglobin 28 PG (27-34); Mean Platelet Volume 12.1 FL (9.6-12.0); Monocytes # 0.7 10*3/uL (0.11-0.8); Monocytes % 19.4 % (1.7-12.7); Neutrophils # 1.8 10*3/uL (1.4-7.4); Neutrophils % 53.1 % (38.7-73.9); Platelet Count 113 T/CUMM (130-400); Red Blood Count 4.07 MC/CUMM (3.8-5.5); Red Cell Distribution Width 15.1 % (9.3-17.3); White Blood Count 3.5 T/CUMM (4-12)
[2017-06-22 05:49] LABS: Calcium 8.4 MG/DL (8.5-10.1); Osmolality,Calculated 282.1 MOS/KG (273-304); Potassium 4.1 MMOL/L (3.5-5.1)
[2017-06-22 06:03] LABS: Eosinophils 1 % (0-10); Lymphocytes 47 % (20-55); Platelet Estimate Normal; Segmented Neutrophils 45 % (50-85); Total Cells Counted 100
[2017-06-22] MEDS: NICOTINE 14 MG/24 HR PATCH TRANSDERM SCH (09:37)
[2017-06-22] MEDS: POTASSIUM CHLORIDE 20 MEQ TABLET PO SCH (09:38)
[2017-06-22] MEDS: FUROSEMIDE 40 MG TABLET PO SCH (09:39)
[2017-06-22] MEDS: MULTIVITAMIN (CENTRUM) TABLET PO SCH (09:39)
[2017-06-22] MEDS: metOLazone 2.5 MG TABLET PO SCH (09:39)
[2017-06-22] MEDS: CARVEDILOL 3.125 MG TABLET PO SCH (09:40)
[2017-06-22] MEDS: SACUBITRIL/VALSARTAN 49-51 MG TABLET PO SCH (09:40)
[2017-06-22] MEDS: DOCUSATE SODIUM 100 MG CAPSULE PO SCH (09:40)
[2017-06-22] MEDS ORDERED: RANOLAZINE 500 MG TABLET PO SCH (12:30)
[2017-06-22 12:38] VITALS: BP 95/69
== END 2017-06-22 14:31 | disposition home or self-care (01) ==
LOC: N.TELES 12:48 → INTOOBSV 12:48
PROVIDERS: ADMIT Internal Medicine Cardiovascular Disease; ATTEND Internal Medicine Cardiovascular Disease

== ENCOUNTER 2017-08-24 09:40 | Observation (INO) ==
[2017-08-24] MEDS ORDERED: NITROGLYCERIN 2% OINT 1 INCH/GM PACK TOP STA (10:04)
[2017-08-24] MEDS ORDERED: NITROGLYCERIN 2% OINT 1 INCH/GM PACK TOP ONE (10:17)
[2017-08-24 10:19] LABS: Basophils % 0.2 % (0.0-0.8); Eosinophils % 0.5 % (0.00-10.9); Hemoglobin 11.5 GM/DL (12.0-16.0); Immature Granulocytes % 0.5 %; Immature Granulocytes Absolute 0.02 #; Lymphocytes # 1.1 10*3/uL (1.4-4.0); Mean Corpuscular HGB Conc 32.9 GM/DL (32-36); Mean Corpuscular Hemoglobin 28 PG (27-34); Mean Platelet Volume 10.5 FL (9.6-12.0); Monocytes # 0.6 10*3/uL (0.11-0.8); Monocytes % 13.1 % (1.7-12.7); Neutrophils # 2.5 10*3/uL (1.4-7.4); Neutrophils % 58.7 % (38.7-73.9); Platelet Count 181 T/CUMM (130-400); Red Blood Count 4.07 MC/CUMM (3.8-5.5); Red Cell Distribution Width 15.9 % (9.3-17.3); White Blood Count 4.2 T/CUMM (4-12)
[2017-08-24 10:31] LABS: PT Patient Result 10.7 SECS; Partial Thromboplastin Time 27.5 SECS (0-40)
[2017-08-24 11:10] LABS: Alanine Aminotransferase 16 U/L (13-56); Albumin 3.9 G/DL (3.4-5.0); Alkaline Phosphatase 85 U/L (45-117); Aspartate Amino Transferase 21 U/L (0-37); Blood Urea Nitrogen 18 MG/DL (7-18); Calcium 9.4 MG/DL (8.5-10.1); Glucose 101 MG/DL (74-106); Osmolality,Calculated 278.5 MOS/KG (273-304); Potassium 4.4 MMOL/L (3.5-5.1); Sodium 139 MMOL/L (136-145); Total Protein 7.8 G/DL (6.4-8.3); Troponin I Only 0.025 NG/ML (0.00-0.045)
[2017-08-24] MEDS ORDERED: FUROSEMIDE 40 MG/4 ML VIAL IV STA (11:52)
[2017-08-24] MEDS ORDERED: FUROSEMIDE 40 MG/4 ML VIAL ONE (12:33)
[2017-08-24] MEDS ORDERED: DOCUSATE SODIUM 100 MG CAPSULE PO PRN (13:03)
[2017-08-24] MEDS ORDERED: MAGNESIUM SULF RIDER 4 GM in PREMIX 1 EACH IV PRN (13:03)
[2017-08-24] MEDS ORDERED: ZALEPLON 5 MG CAPSULE PO PRN (13:03)
[2017-08-24] MEDS ORDERED: ONDANSETRON 4 MG/2 ML VIAL IV PRN (13:03)
[2017-08-24] MEDS ORDERED: MAGNESIUM SULF RIDER 2 GM in PREMIX 1 EACH IV PRN (13:03)
[2017-08-24] MEDS ORDERED: POTASSIUM CHLORIDE 20 MEQ TABLET PO PRN (13:03)
[2017-08-24] MEDS ORDERED: ACETAMINOPHEN 325 MG TABLET PO PRN (13:03)
[2017-08-24] MEDS ORDERED: NITROGLYCERIN SL 0.4 MG TABLET SL PRN (13:06)
[2017-08-24] MEDS ORDERED: ALBUTEROL/IPRATROPIUM 3 ML NEB RESP TX PRN (13:06)
[2017-08-24] MEDS ORDERED: MORPHINE 4 MG/1 ML VIAL IV PRN (15:45)
[2017-08-24] MEDS: ENOXAPARIN 60 MG/0.6 ML SYRINGE SUBCUT SCH (16:15)
[2017-08-24] MEDS: FUROSEMIDE 40 MG/4 ML VIAL IV SCH (16:15)
[2017-08-24] MEDS: NITROGLYCERIN 2% OINT 1 INCH/GM PACK TOP SCH ×2 (16:23→18:10)
[2017-08-24] MEDS: SACUBITRIL/VALSARTAN 49-51 MG TABLET PO SCH (22:19)
[2017-08-24] MEDS: CARVEDILOL 3.125 MG TABLET PO SCH (22:19)
[2017-08-24] MEDS: RANOLAZINE 500 MG TABLET PO SCH (22:26)
[2017-08-24] MEDS: PANTOPRAZOLE 40 MG TABLET PO SCH (22:26)
[2017-08-25] MEDS: NITROGLYCERIN 2% OINT 1 INCH/GM PACK TOP SCH ×4 (00:32→18:10)
[2017-08-25] MEDS: ENOXAPARIN 60 MG/0.6 ML SYRINGE SUBCUT SCH ×2 (04:57→18:10)
[2017-08-25 05:07] LABS: Basophils % 0.5 % (0.0-0.8); Eosinophils % 0.8 % (0.00-10.9); Hematocrit 33.7 VOL% (35.7-47.0); Hemoglobin 11.3 GM/DL (12.0-16.0); Immature Granulocytes % 0.5 %; Immature Granulocytes Absolute 0.02 #; Lymphocytes # 1.1 10*3/uL (1.4-4.0); Lymphocytes % 29.8 % (21.3-54.2); Mean Corpuscular HGB Conc 33.5 GM/DL (32-36); Mean Corpuscular Hemoglobin 28 PG (27-34); Mean Platelet Volume 10.4 FL (9.6-12.0); Monocytes # 0.7 10*3/uL (0.11-0.8); Monocytes % 17.8 % (1.7-12.7); Neutrophils # 1.9 10*3/uL (1.4-7.4); Neutrophils % 50.6 % (38.7-73.9); Platelet Count 190 T/CUMM (130-400); Red Blood Count 4.06 MC/CUMM (3.8-5.5); Red Cell Distribution Width 15.8 % (9.3-17.3); White Blood Count 3.8 T/CUMM (4-12)
[2017-08-25 05:43] LABS: Albumin 3.7 G/DL (3.4-5.0); Bilirubin,Total 0.6 MG/DL (0.2-1.0); Calcium 8.8 MG/DL (8.5-10.1); Osmolality,Calculated 282.4 MOS/KG (273-304); Total Protein 6.8 G/DL (6.4-8.3)
[2017-08-25 06:13] LABS: Calcium 9.1 MG/DL (8.5-10.1); Osmolality,Calculated 280.5 MOS/KG (273-304)
[2017-08-25 07:43] LABS: Eosinophils 1 % (0-10); Hypochromasia Slight; Lymphocytes 27 % (20-55); Platelet Estimate Adequate; Segmented Neutrophils 58 % (50-85); Total Cells Counted 100
[2017-08-25] MEDS ORDERED: PANTOPRAZOLE 40 MG TABLET PO SCH (09:00)
[2017-08-25] MEDS: RANOLAZINE 500 MG TABLET PO SCH ×2 (10:08→21:48)
[2017-08-25] MEDS: SACUBITRIL/VALSARTAN 49-51 MG TABLET PO SCH ×2 (10:08→21:50)
[2017-08-25] MEDS: ASPIRIN 325 MG TABLET PO SCH (10:08)
[2017-08-25] MEDS: ATORVASTATIN 40 MG TABLET PO SCH (10:09)
[2017-08-25] MEDS: CARVEDILOL 3.125 MG TABLET PO SCH ×2 (10:09→21:50)
[2017-08-25] MEDS: NICOTINE 14 MG/24 HR PATCH TRANSDERM SCH (10:09)
[2017-08-25] MEDS: PANTOPRAZOLE 40 MG TABLET PO SCH ×2 (10:09→21:48)
[2017-08-25] MEDS: MULTIVITAMIN (CENTRUM) TABLET PO SCH (10:09)
[2017-08-25] MEDS: metOLazone 2.5 MG TABLET PO SCH (10:09)
[2017-08-25] MEDS: DOCUSATE SODIUM 100 MG CAPSULE PO SCH (10:09)
[2017-08-25] MEDS: CLOPIDOGREL 75 MG TABLET PO SCH (10:10)
[2017-08-25] MEDS: FUROSEMIDE 40 MG/4 ML VIAL IV SCH (10:10)
[2017-08-26] MEDS: NITROGLYCERIN 2% OINT 1 INCH/GM PACK TOP SCH ×3 (00:14→11:32)
[2017-08-26] MEDS: ENOXAPARIN 60 MG/0.6 ML SYRINGE SUBCUT SCH (04:58)
[2017-08-26 05:54] LABS: Calcium 8.8 MG/DL (8.5-10.1); Osmolality,Calculated 280.5 MOS/KG (273-304); Potassium 3.8 MMOL/L (3.5-5.1)
[2017-08-26 08:09] VITALS: BP 118/70
[2017-08-26] MEDS ORDERED: FUROSEMIDE 40 MG/4 ML VIAL IV SCH (09:00)
[2017-08-26] MEDS: RANOLAZINE 500 MG TABLET PO SCH (09:01)
[2017-08-26] MEDS: MULTIVITAMIN (CENTRUM) TABLET PO SCH (09:01)
[2017-08-26] MEDS: ATORVASTATIN 40 MG TABLET PO SCH (09:01)
[2017-08-26] MEDS: ASPIRIN 325 MG TABLET PO SCH (09:02)
[2017-08-26] MEDS: CLOPIDOGREL 75 MG TABLET PO SCH (09:02)
[2017-08-26] MEDS: NICOTINE 14 MG/24 HR PATCH TRANSDERM SCH (09:02)
[2017-08-26] MEDS: DOCUSATE SODIUM 100 MG CAPSULE PO SCH (09:02)
[2017-08-26] MEDS: metOLazone 2.5 MG TABLET PO SCH (09:02)
[2017-08-26] MEDS: PANTOPRAZOLE 40 MG TABLET PO SCH (09:02)
[2017-08-26] MEDS: CARVEDILOL 3.125 MG TABLET PO SCH (09:03)
[2017-08-26] MEDS: SACUBITRIL/VALSARTAN 49-51 MG TABLET PO SCH (09:03)
== END 2017-08-26 11:48 | disposition home or self-care (01) ==
LOC: N.EDINP 09:40 → N.ED 09:40 → N.TELES 13:31
PROVIDERS: ADMIT Internal Medicine Cardiovascular Disease; ATTEND Internal Medicine Cardiovascular Disease

== ENCOUNTER 2017-12-13 13:07 | Inpatient (IN) ==
[2017-12-13] MEDS ORDERED: NITROGLYCERIN SL 0.4 MG TABLET SL PRN (13:54)
[2017-12-13] MEDS ORDERED: ENOXAPARIN 100 MG/ML SYRINGE SUBCUT STA (13:54)
[2017-12-13 14:07] LABS: Basophils % 0.2 % (0.0-0.8); Eosinophils % 0.4 % (0.00-10.9); Hematocrit 28.8 VOL% (35.7-47.0); Hemoglobin 9.6 GM/DL (12.0-16.0); Immature Granulocytes % 0.2 %; Immature Granulocytes Absolute 0.01 #; Lymphocytes # 0.9 10*3/uL (1.4-4.0); Lymphocytes % 19.9 % (21.3-54.2); Mean Corpuscular HGB Conc 33.3 GM/DL (32-36); Mean Corpuscular Hemoglobin 29 PG (27-34); Mean Corpuscular Volume 87.5 FL (87-102); Mean Platelet Volume 9.6 FL (9.6-12.0); Monocytes # 0.6 10*3/uL (0.11-0.8); Monocytes % 13.8 % (1.7-12.7); Neutrophils % 65.5 % (38.7-73.9); Platelet Count 215 T/CUMM (130-400); Red Blood Count 3.29 MC/CUMM (3.8-5.5); Red Cell Distribution Width 13.8 % (9.3-17.3); White Blood Count 4.6 T/CUMM (4-12)
[2017-12-13 14:29] LABS: Albumin 3.7 G/DL (3.4-5.0); Bilirubin,Total 0.4 MG/DL (0.2-1.0); Calcium 8.5 MG/DL (8.5-10.1); Osmolality,Calculated 281.3 MOS/KG (273-304); Potassium 4.1 MMOL/L (3.5-5.1); Total Protein 6.8 G/DL (6.4-8.3)
[2017-12-13] MEDS ORDERED: MAGNESIUM SULF RIDER 2 GM in PREMIX 1 EACH IV PRN (15:22)
[2017-12-13] MEDS ORDERED: ZALEPLON 5 MG CAPSULE PO PRN (15:22)
[2017-12-13] MEDS ORDERED: MORPHINE 4 MG/1 ML VIAL IV PRN (15:22)
[2017-12-13] MEDS ORDERED: MAGNESIUM SULF RIDER 4 GM in PREMIX 1 EACH IV PRN (15:22)
[2017-12-13] MEDS ORDERED: ONDANSETRON 4 MG/2 ML VIAL IV PRN (15:22)
[2017-12-13] MEDS ORDERED: POTASSIUM CHLORIDE 20 MEQ TABLET PO PRN (15:22)
[2017-12-13] MEDS ORDERED: ACETAMINOPHEN 325 MG TABLET PO PRN (15:22)
[2017-12-13] MEDS ORDERED: BISACODYL 5 MG TABLET PO PRN (15:22)
[2017-12-13] MEDS ORDERED: ALBUTEROL/IPRATROPIUM 3 ML NEB RESP TX PRN (16:48)
[2017-12-13] MEDS: POTASSIUM CHLORIDE 10 MEQ TABLET PO SCH (20:44)
[2017-12-13] MEDS: RANOLAZINE 500 MG TABLET PO SCH (20:44)
[2017-12-13] MEDS: SACUBITRIL/VALSARTAN 49-51 MG TABLET PO SCH (20:44)
[2017-12-13] MEDS: CARVEDILOL 3.125 MG TABLET PO SCH (20:44)
[2017-12-14 04:48] LABS: Basophils % 0.2 % (0.0-0.8); Eosinophils # 0.1 10*3/uL (0.0-0.87); Eosinophils % 1.2 % (0.00-10.9); Hematocrit 27.3 VOL% (35.7-47.0); Hemoglobin 8.8 GM/DL (12.0-16.0); Immature Granulocytes % 0.2 %; Immature Granulocytes Absolute 0.01 #; Lymphocytes % 23.4 % (21.3-54.2); Mean Corpuscular HGB Conc 32.2 GM/DL (32-36); Mean Corpuscular Hemoglobin 28 PG (27-34); Mean Corpuscular Volume 87.8 FL (87-102); Mean Platelet Volume 10.4 FL (9.6-12.0); Monocytes # 0.7 10*3/uL (0.11-0.8); Neutrophils # 2.6 10*3/uL (1.4-7.4); Platelet Count 200 T/CUMM (130-400); Red Blood Count 3.11 MC/CUMM (3.8-5.5); Red Cell Distribution Width 13.7 % (9.3-17.3); White Blood Count 4.3 T/CUMM (4-12)
[2017-12-14 05:18] LABS: Calcium 8.5 MG/DL (8.5-10.1); Osmolality,Calculated 284.1 MOS/KG (273-304); Potassium 3.9 MMOL/L (3.5-5.1)
[2017-12-14 06:24] LABS: Eosinophils 2 % (0-10); Hypochromasia 1+; Lymphocytes 23 % (20-55); Microcytosis 1+; Segmented Neutrophils 66 % (50-85); Target Cells Few; Total Cells Counted 100
[2017-12-14 06:25] LABS: Platelet Estimate Normal
[2017-12-14] MEDS ORDERED: ISOSORBIDE MONONITRATE 30 MG TABLET PO SCH (09:00)
[2017-12-14] MEDS ORDERED: PANTOPRAZOLE 40 MG TABLET PO SCH (09:00)
[2017-12-14] MEDS: ENOXAPARIN 40 MG/0.4 ML SYRINGE SUBCUT SCH (09:11)
[2017-12-14] MEDS: SACUBITRIL/VALSARTAN 49-51 MG TABLET PO SCH ×2 (09:11→20:51)
[2017-12-14] MEDS: CLOPIDOGREL 75 MG TABLET PO SCH (09:12)
[2017-12-14] MEDS: ISOSORBIDE MONONITRATE 30 MG TABLET PO SCH (09:12)
[2017-12-14] MEDS: ATORVASTATIN 40 MG TABLET PO SCH (09:12)
[2017-12-14] MEDS: RANOLAZINE 500 MG TABLET PO SCH ×2 (09:12→20:50)
[2017-12-14] MEDS: MULTIVITAMIN (CENTRUM) TABLET PO SCH (09:12)
[2017-12-14] MEDS: NICOTINE 14 MG/24 HR PATCH TRANSDERM SCH (09:13)
[2017-12-14] MEDS: PANTOPRAZOLE 40 MG TABLET PO SCH ×2 (09:13→20:51)
[2017-12-14] MEDS: ASPIRIN CHEW 81 MG TABLET PO SCH (09:13)
[2017-12-14] MEDS: metOLazone 2.5 MG TABLET PO SCH (09:13)
[2017-12-14] MEDS: CARVEDILOL 3.125 MG TABLET PO SCH ×2 (09:13→20:51)
[2017-12-14] MEDS: POTASSIUM CHLORIDE 10 MEQ TABLET PO SCH ×2 (09:13→20:51)
[2017-12-14] MEDS: FUROSEMIDE 40 MG TABLET PO SCH ×2 (09:13→15:20)
[2017-12-14 09:20] LABS: % Iron Saturation 14.3 % (18-50); Ferritin 27.4 ng/ml (8-252)
[2017-12-14] MEDS ORDERED: SODIUM CHLORIDE 0.9% 500 ML IV ONE (23:44)
[2017-12-15] MEDS: SODIUM CHLORIDE 0.9% 1,000 ML IV SCH ×3 (00:30→10:28)
[2017-12-15 04:07] LABS: Basophils % 0.2 % (0.0-0.8); Eosinophils # 0.1 10*3/uL (0.0-0.87); Eosinophils % 1.2 % (0.00-10.9); Hematocrit 27.3 VOL% (35.7-47.0); Hemoglobin 9.4 GM/DL (12.0-16.0); Immature Granulocytes % 0.5 %; Immature Granulocytes Absolute 0.02 #; Lymphocytes % 24.2 % (21.3-54.2); Mean Corpuscular HGB Conc 34.4 GM/DL (32-36); Mean Corpuscular Hemoglobin 29 PG (27-34); Mean Platelet Volume 10.4 FL (9.6-12.0); Monocytes # 0.6 10*3/uL (0.11-0.8); Neutrophils # 2.6 10*3/uL (1.4-7.4); Neutrophils % 59.9 % (38.7-73.9); Platelet Count 220 T/CUMM (130-400); Red Blood Count 3.25 MC/CUMM (3.8-5.5); Red Cell Distribution Width 13.4 % (9.3-17.3); White Blood Count 4.3 T/CUMM (4-12)
[2017-12-15 04:36] LABS: PT Patient Result 10.8 SECS
[2017-12-15 04:54] LABS: Calcium 8.7 MG/DL (8.5-10.1); Osmolality,Calculated 274.8 MOS/KG (273-304); Potassium 3.7 MMOL/L (3.5-5.1)
[2017-12-15 05:05] LABS: Risk Ratio 2.35; VLDL CHOLESTEROL 13.6 MG/DL
[2017-12-15] MEDS: NICOTINE 14 MG/24 HR PATCH TRANSDERM SCH (08:18)
[2017-12-15] MEDS: ENOXAPARIN 40 MG/0.4 ML SYRINGE SUBCUT SCH (08:20)
[2017-12-15] MEDS: RANOLAZINE 500 MG TABLET PO SCH ×2 (08:21→20:29)
[2017-12-15] MEDS: MULTIVITAMIN (CENTRUM) TABLET PO SCH (08:21)
[2017-12-15] MEDS: metOLazone 2.5 MG TABLET PO SCH (08:22)
[2017-12-15] MEDS: ASPIRIN CHEW 81 MG TABLET PO SCH (08:22)
[2017-12-15] MEDS: PANTOPRAZOLE 40 MG TABLET PO SCH ×2 (08:22→20:29)
[2017-12-15] MEDS: POTASSIUM CHLORIDE 10 MEQ TABLET PO SCH ×2 (08:22→20:29)
[2017-12-15] MEDS: ISOSORBIDE MONONITRATE 30 MG TABLET PO SCH (08:23)
[2017-12-15] MEDS: FUROSEMIDE 40 MG TABLET PO SCH (08:24)
[2017-12-15] MEDS: ATORVASTATIN 40 MG TABLET PO SCH (08:24)
[2017-12-15] MEDS: CARVEDILOL 3.125 MG TABLET PO SCH (08:24)
[2017-12-15] MEDS: SACUBITRIL/VALSARTAN 49-51 MG TABLET PO SCH ×2 (08:45→20:29)
[2017-12-15] MEDS: CLOPIDOGREL 75 MG TABLET PO SCH (08:45)
[2017-12-15] MEDS: DIGOXIN 0.25 MG TABLET PO SCH ×2 (10:32→16:57)
[2017-12-16 05:09] LABS: Basophils % 0.3 % (0.0-0.8); Eosinophils % 1.1 % (0.00-10.9); Hemoglobin 10.1 GM/DL (12.0-16.0); Immature Granulocytes % 0.3 %; Immature Granulocytes Absolute 0.01 #; Lymphocytes % 26.8 % (21.3-54.2); Mean Corpuscular HGB Conc 33.7 GM/DL (32-36); Mean Corpuscular Hemoglobin 29 PG (27-34); Mean Corpuscular Volume 85.5 FL (87-102); Mean Platelet Volume 10.6 FL (9.6-12.0); Monocytes # 0.6 10*3/uL (0.11-0.8); Monocytes % 17.2 % (1.7-12.7); Neutrophils # 1.9 10*3/uL (1.4-7.4); Neutrophils % 54.3 % (38.7-73.9); Platelet Count 236 T/CUMM (130-400); Red Blood Count 3.51 MC/CUMM (3.8-5.5); Red Cell Distribution Width 13.8 % (9.3-17.3); White Blood Count 3.5 T/CUMM (4-12)
[2017-12-16 05:21] LABS: Calcium 9.3 MG/DL (8.5-10.1); Osmolality,Calculated 273.8 MOS/KG (273-304)
[2017-12-16 05:36] LABS: Eosinophils 8 % (0-10); Hypochromasia 1+; Lymphocytes 25 % (20-55); Ovalocytes Slight; Platelet Estimate Adequate; Segmented Neutrophils 51 % (50-85); Total Cells Counted 100
[2017-12-16 05:37] LABS: Microcytosis 1+
[2017-12-16 05:40] LABS: % Iron Saturation 14.3 % (18-50); Ferritin 26.1 ng/ml (8-252)
[2017-12-16 05:44] LABS: Folate 22.4 NG/ML (5.4-24.0)
[2017-12-16] MEDS: ENOXAPARIN 40 MG/0.4 ML SYRINGE SUBCUT SCH (08:07)
[2017-12-16] MEDS: NICOTINE 14 MG/24 HR PATCH TRANSDERM SCH (08:07)
[2017-12-16] MEDS: PANTOPRAZOLE 40 MG TABLET PO SCH ×2 (08:08→20:31)
[2017-12-16] MEDS: CLOPIDOGREL 75 MG TABLET PO SCH (08:09)
[2017-12-16] MEDS: RANOLAZINE 500 MG TABLET PO SCH ×2 (08:09→20:31)
[2017-12-16] MEDS: metOLazone 2.5 MG TABLET PO SCH (08:09)
[2017-12-16] MEDS: POTASSIUM CHLORIDE 10 MEQ TABLET PO SCH ×2 (08:09→20:31)
[2017-12-16] MEDS: ATORVASTATIN 40 MG TABLET PO SCH (08:09)
[2017-12-16] MEDS: ASPIRIN CHEW 81 MG TABLET PO SCH (08:10)
[2017-12-16] MEDS: MULTIVITAMIN (CENTRUM) TABLET PO SCH (08:10)
[2017-12-16] MEDS: ISOSORBIDE MONONITRATE 30 MG TABLET PO SCH (08:11)
[2017-12-16] MEDS: DIGOXIN 0.125 MG TABLET PO SCH (08:11)
[2017-12-16] MEDS: SACUBITRIL/VALSARTAN 49-51 MG TABLET PO SCH ×2 (08:20→20:31)
[2017-12-16] MEDS ORDERED: FUROSEMIDE 40 MG TABLET PO SCH ×2 (09:00→21:00)
[2017-12-16] MEDS: FERROUS SULFATE 325 MG TABLET PO SCH ×2 (12:34→20:31)
[2017-12-17 05:04] LABS: Basophils % 0.3 % (0.0-0.8); Hematocrit 31.3 VOL% (35.7-47.0); Hemoglobin 10.4 GM/DL (12.0-16.0); Immature Granulocytes % 0.3 %; Immature Granulocytes Absolute 0.01 #; Lymphocytes # 0.9 10*3/uL (1.4-4.0); Lymphocytes % 23.5 % (21.3-54.2); Mean Corpuscular HGB Conc 33.2 GM/DL (32-36); Mean Corpuscular Hemoglobin 29 PG (27-34); Mean Corpuscular Volume 86.5 FL (87-102); Mean Platelet Volume 10.1 FL (9.6-12.0); Monocytes # 0.7 10*3/uL (0.11-0.8); Monocytes % 19.3 % (1.7-12.7); Neutrophils # 2.1 10*3/uL (1.4-7.4); Neutrophils % 55.6 % (38.7-73.9); Platelet Count 236 T/CUMM (130-400); Red Blood Count 3.62 MC/CUMM (3.8-5.5); Red Cell Distribution Width 13.9 % (9.3-17.3); White Blood Count 3.8 T/CUMM (4-12)
[2017-12-17 05:26] LABS: Calcium 8.6 MG/DL (8.5-10.1); Osmolality,Calculated 276.7 MOS/KG (273-304); Potassium 4.2 MMOL/L (3.5-5.1)
[2017-12-17 05:53] LABS: Eosinophils 2 % (0-10); Hypochromasia 1+; Lymphocytes 37 % (20-55); Segmented Neutrophils 47 % (50-85); Total Cells Counted 100
[2017-12-17 05:54] LABS: Platelet Estimate Normal; Target Cells Few
[2017-12-17 05:55] LABS: Ovalocytes 1+
[2017-12-17] MEDS: ATORVASTATIN 40 MG TABLET PO SCH (08:41)
[2017-12-17] MEDS: ASPIRIN CHEW 81 MG TABLET PO SCH (08:41)
[2017-12-17] MEDS: CLOPIDOGREL 75 MG TABLET PO SCH (08:41)
[2017-12-17] MEDS: DIGOXIN 0.125 MG TABLET PO SCH (08:41)
[2017-12-17] MEDS: RANOLAZINE 500 MG TABLET PO SCH ×2 (08:41→21:11)
[2017-12-17] MEDS: MULTIVITAMIN (CENTRUM) TABLET PO SCH (08:41)
[2017-12-17] MEDS: ISOSORBIDE MONONITRATE 30 MG TABLET PO SCH (08:41)
[2017-12-17] MEDS: PANTOPRAZOLE 40 MG TABLET PO SCH ×2 (08:41→21:11)
[2017-12-17] MEDS: FERROUS SULFATE 325 MG TABLET PO SCH ×2 (08:42→21:11)
[2017-12-17] MEDS: POTASSIUM CHLORIDE 10 MEQ TABLET PO SCH ×2 (08:42→21:11)
[2017-12-17] MEDS: NICOTINE 14 MG/24 HR PATCH TRANSDERM SCH (08:42)
[2017-12-17] MEDS: FUROSEMIDE 40 MG TABLET PO SCH (08:42)
[2017-12-17] MEDS: ENOXAPARIN 40 MG/0.4 ML SYRINGE SUBCUT SCH (08:44)
[2017-12-17] MEDS ORDERED: MAGNESIUM HYDROXIDE SUSP 30 ML UDCUP PO PRN (08:46)
[2017-12-17] MEDS ORDERED: diphenhydrAMINE CAP 25 MG CAPSULE PO PRN (08:46)
[2017-12-17] MEDS ORDERED: BUPIVACAINE MPF 0.25% 30 ML VIAL ONE (12:36)
[2017-12-17] MEDS ORDERED: LIDOCAINE 1% 20 ML VIAL ONE (12:37)
[2017-12-18 04:06] LABS: Basophils % 0.5 % (0.0-0.8); Eosinophils # 0.1 10*3/uL (0.0-0.87); Eosinophils % 1.5 % (0.00-10.9); Hematocrit 30.2 VOL% (35.7-47.0); Hemoglobin 9.9 GM/DL (12.0-16.0); Immature Granulocytes % 0.2 %; Immature Granulocytes Absolute 0.01 #; Lymphocytes % 25.6 % (21.3-54.2); Mean Corpuscular HGB Conc 32.8 GM/DL (32-36); Mean Corpuscular Hemoglobin 28 PG (27-34); Mean Corpuscular Volume 86.8 FL (87-102); Mean Platelet Volume 10.1 FL (9.6-12.0); Monocytes # 0.7 10*3/uL (0.11-0.8); Monocytes % 17.9 % (1.7-12.7); Neutrophils # 2.2 10*3/uL (1.4-7.4); Neutrophils % 54.3 % (38.7-73.9); Platelet Count 233 T/CUMM (130-400); Red Blood Count 3.48 MC/CUMM (3.8-5.5); Red Cell Distribution Width 13.6 % (9.3-17.3)
[2017-12-18 04:13] LABS: Calcium 8.7 MG/DL (8.5-10.1); Osmolality,Calculated 275.8 MOS/KG (273-304); Potassium 4.3 MMOL/L (3.5-5.1)
[2017-12-18 04:46] LABS: Band Neutrophils 2 % (0-10); Lymphocytes 27 % (20-55); Platelet Estimate Normal; Segmented Neutrophils 55 % (50-85); Total Cells Counted 100
[2017-12-18 04:47] LABS: Anisocytosis Slight; Macrocytosis Slight; Ovalocytes Few
[2017-12-18] MEDS: RANOLAZINE 500 MG TABLET PO SCH ×2 (09:01→20:54)
[2017-12-18] MEDS: PANTOPRAZOLE 40 MG TABLET PO SCH ×2 (09:01→20:54)
[2017-12-18] MEDS: CLOPIDOGREL 75 MG TABLET PO SCH (09:01)
[2017-12-18] MEDS: MULTIVITAMIN (CENTRUM) TABLET PO SCH (09:01)
[2017-12-18] MEDS: ASPIRIN CHEW 81 MG TABLET PO SCH (09:01)
[2017-12-18] MEDS: FUROSEMIDE 40 MG TABLET PO SCH (09:02)
[2017-12-18] MEDS: DIGOXIN 0.125 MG TABLET PO SCH (09:02)
[2017-12-18] MEDS: ATORVASTATIN 40 MG TABLET PO SCH (09:02)
[2017-12-18] MEDS: ISOSORBIDE MONONITRATE 30 MG TABLET PO SCH (09:02)
[2017-12-18] MEDS: FERROUS SULFATE 325 MG TABLET PO SCH ×2 (09:02→20:55)
[2017-12-18] MEDS: POTASSIUM CHLORIDE 10 MEQ TABLET PO SCH ×2 (09:02→20:54)
[2017-12-18] MEDS: NICOTINE 14 MG/24 HR PATCH TRANSDERM SCH (09:05)
[2017-12-18] MEDS: ENOXAPARIN 40 MG/0.4 ML SYRINGE SUBCUT SCH (09:05)
[2017-12-18] MEDS: DOCUSATE SODIUM 100 MG CAPSULE PO PRN (09:11)
[2017-12-18] MEDS ORDERED: SODIUM CHLORIDE 0.9% 500 ML IV SCH (14:00)
[2017-12-19 04:26] LABS: Basophils % 0.3 % (0.0-0.8); Eosinophils # 0.1 10*3/uL (0.0-0.87); Eosinophils % 1.3 % (0.00-10.9); Hematocrit 29.5 VOL% (35.7-47.0); Hemoglobin 9.8 GM/DL (12.0-16.0); Immature Granulocytes % 0.3 %; Immature Granulocytes Absolute 0.01 #; Lymphocytes # 1.1 10*3/uL (1.4-4.0); Lymphocytes % 27.6 % (21.3-54.2); Mean Corpuscular HGB Conc 33.2 GM/DL (32-36); Mean Corpuscular Hemoglobin 29 PG (27-34); Mean Corpuscular Volume 87.3 FL (87-102); Mean Platelet Volume 10.4 FL (9.6-12.0); Monocytes # 0.7 10*3/uL (0.11-0.8); Neutrophils # 2.1 10*3/uL (1.4-7.4); Neutrophils % 52.5 % (38.7-73.9); Platelet Count 232 T/CUMM (130-400); Red Blood Count 3.38 MC/CUMM (3.8-5.5); Red Cell Distribution Width 13.6 % (9.3-17.3)
[2017-12-19 04:57] LABS: Eosinophils 2 % (0-10); Lymphocytes 25 % (20-55); Platelet Estimate Adequate; Segmented Neutrophils 58 % (50-85); Total Cells Counted 100
[2017-12-19 04:58] LABS: Hypochromasia 1+
[2017-12-19 05:06] LABS: Calcium 9.1 MG/DL (8.5-10.1); Osmolality,Calculated 275.8 MOS/KG (273-304); Potassium 4.1 MMOL/L (3.5-5.1)
[2017-12-19 08:05] VITALS: BP 97/53
[2017-12-19] MEDS: FUROSEMIDE 40 MG TABLET PO SCH (08:41)
[2017-12-19] MEDS: PANTOPRAZOLE 40 MG TABLET PO SCH (08:41)
[2017-12-19] MEDS: MULTIVITAMIN (CENTRUM) TABLET PO SCH (08:41)
[2017-12-19] MEDS: DIGOXIN 0.125 MG TABLET PO SCH (08:41)
[2017-12-19] MEDS: ASPIRIN CHEW 81 MG TABLET PO SCH (08:42)
[2017-12-19] MEDS: CLOPIDOGREL 75 MG TABLET PO SCH (08:42)
[2017-12-19] MEDS: POTASSIUM CHLORIDE 10 MEQ TABLET PO SCH (08:43)
[2017-12-19] MEDS: NICOTINE 14 MG/24 HR PATCH TRANSDERM SCH (08:43)
[2017-12-19] MEDS: RANOLAZINE 500 MG TABLET PO SCH (08:43)
[2017-12-19] MEDS: ISOSORBIDE MONONITRATE 30 MG TABLET PO SCH (08:43)
[2017-12-19] MEDS: ENOXAPARIN 40 MG/0.4 ML SYRINGE SUBCUT SCH (08:44)
[2017-12-19] MEDS: ATORVASTATIN 40 MG TABLET PO SCH (08:49)
[2017-12-19] MEDS: FERROUS SULFATE 325 MG TABLET PO SCH (08:49)
[2017-12-19] MEDS: DOCUSATE SODIUM 100 MG CAPSULE PO PRN (08:52)
== END 2017-12-19 10:13 | disposition home or self-care (01) | DRG 313 ==
LOC: N.EDINP 13:07 → N.ED 13:07 → N.2W 16:20 → N.TELES 17:14
PROVIDERS: ADMIT Internal Medicine Cardiovascular Disease; ATTEND Internal Medicine Cardiovascular Disease

== ENCOUNTER 2019-11-27 17:01 | Observation (INO) ==
[2019-11-27] MEDS ORDERED: DILTIAZEM 25 MG/5 ML VIAL IV ONE (17:28)
[2019-11-27] MEDS ORDERED: FUROSEMIDE 40 MG/4 ML VIAL IV STA (17:30)
[2019-11-27] MEDS ORDERED: DILTIAZEM 50 MG/10 ML VIAL IV STA (17:30)
[2019-11-27] MEDS ORDERED: ENOXAPARIN 100 MG/ML SYRINGE SUBCUT STA (17:30)
[2019-11-27] MEDS ORDERED: ENOXAPARIN 60 MG/0.6 ML SYRINGE ONE (17:38)
[2019-11-27 17:43] LABS: Basophils % 0.1 % (0.0-0.8); Eosinophils % 0.1 % (0.00-10.9); Hematocrit 32.6 VOL% (35.7-47.0); Hemoglobin 10.8 GM/DL (12.0-16.0); Immature Granulocytes % 0.3 %; Immature Granulocytes Absolute 0.02 #; Lymphocytes # 1.2 10*3/uL (1.4-4.0); Lymphocytes % 17.8 % (21.3-54.2); Mean Corpuscular HGB Conc 33.1 GM/DL (32-36); Mean Corpuscular Volume 83.6 FL (87-102); Mean Platelet Volume 10.1 FL (9.6-12.0); Monocytes % 12.6 % (1.7-12.7); Neutrophils % 69.1 % (38.7-73.9); Platelet Count 248 T/CUMM (130-400); Red Cell Distribution Width 14.4 % (9.3-17.3); White Blood Count 6.9 T/CUMM (4-12)
[2019-11-27 17:51] LABS: INR 1.1; PT Patient Result 11.7 SECS (9.8-11.9)
[2019-11-27 18:03] LABS: Albumin 3.5 G/DL (3.4-5.0); Bilirubin,Total 0.7 MG/DL (0.2-1.0); Calcium 8.7 MG/DL (8.5-10.1); Osmolality,Calculated 266.2 MOS/KG (273-304); Thyroid Stimulating Hormone 1.01 uIU/ml (0.358-3.74); Total Protein 6.9 G/DL (6.4-8.3)
[2019-11-27] MEDS ORDERED: METOPROLOL TARTRATE 25 MG TABLET PO STA (18:29)
[2019-11-27] MEDS ORDERED: ONDANSETRON 4 MG/2 ML VIAL IV PRN (21:19)
[2019-11-27] MEDS ORDERED: NITROGLYCERIN SL 0.4 MG TABLET SL PRN (21:19)
[2019-11-27] MEDS ORDERED: MAGNESIUM SULF RIDER 2 GM in PREMIX 1 EACH IV PRN (21:19)
[2019-11-27] MEDS ORDERED: MAGNESIUM SULF RIDER 4 GM in PREMIX 1 EACH IV PRN (21:19)
[2019-11-27] MEDS ORDERED: MORPHINE 4 MG/1 ML VIAL IV PRN (21:19)
[2019-11-27] MEDS ORDERED: SODIUM CHLORIDE 0.9% 1,000 ML IV SCH (22:00)
[2019-11-27] MEDS: ALBUTEROL/IPRATROPIUM 3 ML NEB RESP TX SCH (22:07)
[2019-11-27] MEDS: AMITRIPTYLINE 25 MG TABLET PO SCH (22:19)
[2019-11-27] MEDS: carvediloL 6.25 MG TABLET PO SCH (22:19)
[2019-11-27] MEDS: FERROUS SULFATE 325 MG TABLET PO SCH (22:19)
[2019-11-27] MEDS: PANTOPRAZOLE 40 MG TABLET PO SCH (22:19)
[2019-11-27] MEDS: METOPROLOL TARTRATE 25 MG TABLET PO SCH (22:19)
[2019-11-27 22:34] LABS: Troponin I 0.091 NG/ML (0.00-0.045)
[2019-11-28] MEDS: ALBUTEROL/IPRATROPIUM 3 ML NEB RESP TX SCH ×4 (00:29→20:43)
[2019-11-28 05:21] LABS: Basophils % 0.4 % (0.0-0.8); Eosinophils # 0.1 10*3/uL (0.0-0.87); Hematocrit 31.7 VOL% (35.7-47.0); Hemoglobin 10.3 GM/DL (12.0-16.0); Immature Granulocytes % 0.4 %; Immature Granulocytes Absolute 0.02 #; Lymphocytes # 1.4 10*3/uL (1.4-4.0); Lymphocytes % 26.2 % (21.3-54.2); Mean Corpuscular HGB Conc 32.5 GM/DL (32-36); Mean Corpuscular Volume 83.9 FL (87-102); Mean Platelet Volume 9.9 FL (9.6-12.0); Monocytes % 16.8 % (1.7-12.7); Neutrophils % 55.2 % (38.7-73.9); Platelet Count 239 T/CUMM (130-400); Red Blood Count 3.78 MC/CUMM (3.8-5.5); Red Cell Distribution Width 14.2 % (9.3-17.3); White Blood Count 5.2 T/CUMM (4-12)
[2019-11-28 05:41] LABS: Troponin I 0.099 NG/ML (0.00-0.045)
[2019-11-28 05:44] LABS: Albumin 3.2 G/DL (3.4-5.0); Bilirubin,Total 0.5 MG/DL (0.2-1.0); Calcium 8.6 MG/DL (8.5-10.1); Osmolality,Calculated 269.1 MOS/KG (273-304); Risk Ratio 3.5; Thyroid Stimulating Hormone 1.09 uIU/ml (0.358-3.74); VLDL CHOLESTEROL 16.2 MG/DL
[2019-11-28] MEDS ORDERED: ALBUTEROL/IPRATROPIUM 3 ML NEB RESP TX PRN (07:00)
[2019-11-28 07:10] LABS: Anisocytosis 2+; Eosinophils 2 % (0-10); Lymphocytes 31 % (20-55); Macrocytosis Slight; Segmented Neutrophils 51 % (50-85); Total Cells Counted 100
[2019-11-28] MEDS ORDERED: DIGOXIN 0.125 MG TABLET PO SCH (09:00)
[2019-11-28] MEDS ORDERED: PANTOPRAZOLE 40 MG TABLET PO SCH (09:00)
[2019-11-28] MEDS: RANOLAZINE 500 MG TABLET PO SCH ×2 (09:17→21:30)
[2019-11-28] MEDS: CLOPIDOGREL 75 MG TABLET PO SCH (09:17)
[2019-11-28] MEDS: ISOSORBIDE MONONITRATE 60 MG TABLET PO SCH (09:17)
[2019-11-28] MEDS: ASPIRIN CHEW 81 MG TABLET PO SCH (09:17)
[2019-11-28] MEDS: MULTIVITAMIN (CENTRUM) TABLET PO SCH (09:17)
[2019-11-28] MEDS: PANTOPRAZOLE 40 MG TABLET PO SCH ×2 (09:18→21:31)
[2019-11-28] MEDS: FERROUS SULFATE 325 MG TABLET PO SCH ×2 (09:18→21:31)
[2019-11-28] MEDS: METOPROLOL TARTRATE 25 MG TABLET PO SCH (09:18)
[2019-11-28] MEDS: carvediloL 6.25 MG TABLET PO SCH (09:18)
[2019-11-28] MEDS: DOCUSATE SODIUM 100 MG CAPSULE PO SCH (09:18)
[2019-11-28] MEDS: FUROSEMIDE 40 MG TABLET PO SCH (09:19)
[2019-11-28] MEDS: ENOXAPARIN 40 MG/0.4 ML SYRINGE SUBCUT SCH (09:19)
[2019-11-28] MEDS ORDERED: POTASSIUM CHLORIDE 20 MEQ TABLET PO ONE (11:06)
[2019-11-28] MEDS ORDERED: carvediloL 12.5 MG TABLET PO SCH (11:29)
[2019-11-28] MEDS: ASCORBIC ACID 500 MG TABLET PO SCH ×2 (11:40→21:30)
[2019-11-28 14:11] LABS: Troponin I 0.075 NG/ML (0.00-0.045)
[2019-11-28] MEDS: SPIRONOLACTONE 25 MG TABLET PO SCH (16:46)
[2019-11-28] MEDS ORDERED: DILTIAZEM 25 MG/5 ML VIAL IV ONE (17:12)
[2019-11-28] MEDS ORDERED: dilTIAZem Drip 125 MG/125 ML PREMIX IV SCH (17:30)
[2019-11-28] MEDS ORDERED: DIGOXIN 0.25 MG TABLET PO SCH (18:43)
[2019-11-28] MEDS ORDERED: ATORVASTATIN 40 MG TABLET PO SCH (21:00)
[2019-11-28] MEDS: AMITRIPTYLINE 25 MG TABLET PO SCH (21:30)
[2019-11-28] MEDS: MAGNESIUM OXIDE 400 MG TABLET PO SCH (21:31)
[2019-11-28] MEDS: METOPROLOL TARTRATE 50 MG TABLET PO SCH (21:31)
[2019-11-29] MEDS: ALBUTEROL/IPRATROPIUM 3 ML NEB RESP TX SCH ×3 (00:25→13:53)
[2019-11-29 06:31] LABS: Basophils % 0.4 % (0.0-0.8); Eosinophils % 0.6 % (0.00-10.9); Hematocrit 33.6 VOL% (35.7-47.0); Hemoglobin 10.8 GM/DL (12.0-16.0); Immature Granulocytes % 0.2 %; Immature Granulocytes Absolute 0.01 #; Lymphocytes # 1.1 10*3/uL (1.4-4.0); Lymphocytes % 20.8 % (21.3-54.2); Mean Corpuscular HGB Conc 32.1 GM/DL (32-36); Mean Corpuscular Volume 84.8 FL (87-102); Mean Platelet Volume 10.6 FL (9.6-12.0); Monocytes % 12.4 % (1.7-12.7); Neutrophils % 65.6 % (38.7-73.9); Platelet Count 261 T/CUMM (130-400); Red Blood Count 3.96 MC/CUMM (3.8-5.5); Red Cell Distribution Width 14.6 % (9.3-17.3); White Blood Count 5.4 T/CUMM (4-12)
[2019-11-29 07:00] LABS: Calcium 8.7 MG/DL (8.5-10.1); Osmolality,Calculated 272.8 MOS/KG (273-304)
[2019-11-29] MEDS: RANOLAZINE 500 MG TABLET PO SCH (08:57)
[2019-11-29] MEDS: MULTIVITAMIN (CENTRUM) TABLET PO SCH (08:57)
[2019-11-29] MEDS: ASCORBIC ACID 500 MG TABLET PO SCH (08:58)
[2019-11-29] MEDS: SPIRONOLACTONE 25 MG TABLET PO SCH (08:58)
[2019-11-29] MEDS: MAGNESIUM OXIDE 400 MG TABLET PO SCH (08:58)
[2019-11-29] MEDS: PANTOPRAZOLE 40 MG TABLET PO SCH (08:59)
[2019-11-29] MEDS: METOPROLOL TARTRATE 50 MG TABLET PO SCH (08:59)
[2019-11-29] MEDS: CLOPIDOGREL 75 MG TABLET PO SCH (08:59)
[2019-11-29] MEDS: DOCUSATE SODIUM 100 MG CAPSULE PO SCH (08:59)
[2019-11-29] MEDS: FUROSEMIDE 40 MG TABLET PO SCH (08:59)
[2019-11-29] MEDS: FERROUS SULFATE 325 MG TABLET PO SCH (08:59)
[2019-11-29] MEDS: ISOSORBIDE MONONITRATE 60 MG TABLET PO SCH (08:59)
[2019-11-29] MEDS: ASPIRIN CHEW 81 MG TABLET PO SCH (09:00)
[2019-11-29] MEDS: ENOXAPARIN 40 MG/0.4 ML SYRINGE SUBCUT SCH (09:00)
[2019-11-29 12:21] VITALS: BP 101/59
== END 2019-11-29 16:25 | disposition home or self-care (01) ==
LOC: EDBD → EDUNIT# → N.EDINP 17:01 → N.ED 17:01 → N.TELES 21:09
PROVIDERS: ADMIT Internal Medicine Cardiovascular Disease; ATTEND Internal Medicine Cardiovascular Disease

== ENCOUNTER 2020-07-29 11:04 | Observation (INO) ==
[2020-07-29] MEDS ORDERED: SODIUM CHLORIDE 0.9% 1,000 ML IV STA (11:38)
[2020-07-29] MEDS ORDERED: DILTIAZEM 50 MG/10 ML VIAL IV STA (11:38)
[2020-07-29] MEDS ORDERED: DILTIAZEM INJ 100 MG in SODIUM CHLORIDE 0.9% 100 ML IV SCH (12:00)
[2020-07-29 12:05] LABS: Basophils % 0.2 % (0.0-0.8); Eosinophils % 0.3 % (0.00-10.9); Hematocrit 32.3 VOL% (35.7-47.0); Hemoglobin 10.6 GM/DL (12.0-16.0); Immature Granulocytes % 0.5 %; Immature Granulocytes Absolute 0.03 #; Lymphocytes # 1.2 10*3/uL (1.4-4.0); Lymphocytes % 18.3 % (21.3-54.2); Mean Corpuscular HGB Conc 32.8 GM/DL (32-36); Mean Corpuscular Volume 86.4 FL (87-102); Mean Platelet Volume 10.9 FL (9.6-12.0); Monocytes % 10.4 % (1.7-12.7); Neutrophils % 70.3 % (38.7-73.9); Platelet Count 266 T/CUMM (130-400); Red Blood Count 3.74 MC/CUMM (3.8-5.5); Red Cell Distribution Width 14.5 % (9.3-17.3); White Blood Count 6.3 T/CUMM (4-12)
[2020-07-29 12:22] LABS: Alanine Aminotransferase 26 U/L (13-56); Albumin 3.5 G/DL (3.4-5.0); Alkaline Phosphatase 72 U/L (45-117); Aspartate Amino Transferase 21 U/L (0-37); Bilirubin,Total < 0.39 MG/DL (0.2-1.0); Blood Urea Nitrogen 11 MG/DL (7-18); Calcium 8.9 MG/DL (8.5-10.1); Carbon Dioxide 27 MMOL/L (21-32); Estimated Glom Filtration Rate 48 ML/MIN; Glucose 113 MG/DL (74-106); Potassium 4.3 MMOL/L (3.5-5.1); Sodium 136 MMOL/L (136-145); Total Protein 6.7 G/DL (6.4-8.2)
[2020-07-29] MEDS ORDERED: hydrALAZINE 20 MG/1 ML VIAL IV PRN (14:54)
[2020-07-29] MEDS ORDERED: ONDANSETRON 4 MG/2 ML VIAL IV PRN (14:54)
[2020-07-29] MEDS ORDERED: NICOTINE 21 MG/24 HR PATCH TRANSDERM PRN (14:54)
[2020-07-29] MEDS ORDERED: DEXTROSE 50% 25 GM/50 ML VIAL IV PRN (14:54)
[2020-07-29] MEDS ORDERED: traZODone 50 MG TABLET PO PRN (14:54)
[2020-07-29] MEDS ORDERED: GLUCAGON 1 MG VIAL IM PRN (14:54)
[2020-07-29] MEDS ORDERED: DOCUSATE SODIUM 100 MG CAPSULE PO PRN (14:54)
[2020-07-29] MEDS ORDERED: SIMETHICONE CHEW 125 MG TABLET PO PRN (14:54)
[2020-07-29] MEDS ORDERED: ENOXAPARIN 40 MG/0.4 ML SYRINGE SUBCUT SCH (16:00)
[2020-07-30] MEDS ORDERED: NITROGLYCERIN SL 0.4 MG TABLET SL PRN (05:11)
[2020-07-30 05:50] LABS: Basophils % 0.4 % (0.0-0.8); Eosinophils % 0.6 % (0.00-10.9); Hematocrit 28.4 VOL% (35.7-47.0); Hemoglobin 9.5 GM/DL (12.0-16.0); Immature Granulocytes % 0.4 %; Immature Granulocytes Absolute 0.02 #; Lymphocytes # 1.2 10*3/uL (1.4-4.0); Lymphocytes % 23.7 % (21.3-54.2); Mean Corpuscular HGB Conc 33.5 GM/DL (32-36); Mean Corpuscular Volume 84.3 FL (87-102); Mean Platelet Volume 10.7 FL (9.6-12.0); Monocytes % 13.6 % (1.7-12.7); Neutrophils % 61.3 % (38.7-73.9); Platelet Count 210 T/CUMM (130-400); Red Blood Count 3.37 MC/CUMM (3.8-5.5); Red Cell Distribution Width 14.2 % (9.3-17.3); White Blood Count 4.9 T/CUMM (4-12)
[2020-07-30 06:13] LABS: Calcium 8.4 MG/DL (8.5-10.1); Osmolality,Calculated 275.5 MOS/KG (273-304); Potassium 4.1 MMOL/L (3.5-5.1); Risk Ratio 2.4; Thyroid Stimulating Hormone 1.98 uIU/ml (0.358-3.74); VLDL CHOLESTEROL 12.8 MG/DL
[2020-07-30] MEDS ORDERED: METOPROLOL TARTRATE 25 MG TABLET PO SCH (09:00)
[2020-07-30] MEDS ORDERED: DOCUSATE SODIUM 100 MG CAPSULE PO SCH (09:00)
[2020-07-30] MEDS ORDERED: ISOSORBIDE MONONITRATE 60 MG TABLET PO SCH (09:00)
[2020-07-30] MEDS ORDERED: PANTOPRAZOLE 40 MG TABLET PO SCH (09:00)
[2020-07-30] MEDS ORDERED: FUROSEMIDE 40 MG TABLET PO SCH (09:00)
[2020-07-30] MEDS ORDERED: RANOLAZINE 500 MG TABLET PO SCH (09:00)
[2020-07-30] MEDS ORDERED: AMIODARONE 200 MG TABLET PO SCH (09:00)
[2020-07-30] MEDS ORDERED: SPIRONOLACTONE 25 MG TABLET PO SCH ×2 (09:00)
[2020-07-30] MEDS ORDERED: ASCORBIC ACID 500 MG TABLET PO SCH (09:00)
[2020-07-30] MEDS ORDERED: MAGNESIUM OXIDE 400 MG TABLET PO SCH (09:00)
[2020-07-30] MEDS ORDERED: MULTIVITAMIN (CENTRUM) TABLET PO SCH (09:00)
[2020-07-30] MEDS ORDERED: APIXABAN 5 MG TABLET PO SCH (09:00)
[2020-07-30] MEDS ORDERED: NICOTINE 14 MG/24 HR PATCH TRANSDERM SCH (09:00)
[2020-07-30] MEDS ORDERED: DIGOXIN 0.125 MG TABLET PO SCH (09:00)
[2020-07-30 11:33] VITALS: BP 98/46
[2020-07-30] MEDS ORDERED: ATORVASTATIN 40 MG TABLET PO SCH (21:00)
[2020-07-30] MEDS ORDERED: ASPIRIN CHEW 81 MG TABLET PO SCH (21:00)
== END 2020-07-30 15:38 | disposition home or self-care (01) ==
LOC: N.EDINP 11:04 → N.ED 11:04 → N.TELEN 17:32
PROVIDERS: ADMIT Internal Medicine; ATTEND Internal Medicine

== ENCOUNTER 2020-09-01 12:24 | Inpatient (IN) ==
[2020-09-01] MEDS ORDERED: ONDANSETRON 4 MG/2 ML VIAL IV PRN (12:32)
[2020-09-01] MEDS ORDERED: AMIODARONE INJ 150 MG in DEXTROSE 5% 100 ML IV ONE (13:08)
[2020-09-01] MEDS ORDERED: NICOTINE 14 MG/24 HR PATCH TRANSDERM PRN (13:45)
[2020-09-01] MEDS ORDERED: DOCUSATE SODIUM 100 MG/10 ML UDCUP PO PRN (13:45)
[2020-09-01 14:30] LABS: Basophils % 0.2 % (0.0-0.8); Eosinophils % 0.2 % (0.00-10.9); Hematocrit 27.5 VOL% (35.7-47.0); Hemoglobin 9.2 GM/DL (12.0-16.0); Immature Granulocytes % 0.4 %; Immature Granulocytes Absolute 0.02 #; Lymphocytes # 0.9 10*3/uL (1.4-4.0); Lymphocytes % 16.2 % (21.3-54.2); Mean Corpuscular HGB Conc 33.5 GM/DL (32-36); Mean Corpuscular Volume 82.1 FL (87-102); Mean Platelet Volume 9.4 FL (9.6-12.0); Monocytes % 10.9 % (1.7-12.7); Neutrophils % 72.1 % (38.7-73.9); Platelet Count 291 T/CUMM (130-400); Red Blood Count 3.35 MC/CUMM (3.8-5.5); White Blood Count 5.5 T/CUMM (4-12)
[2020-09-01 14:52] LABS: Albumin 3.6 G/DL (3.4-5.0); Bilirubin,Total 0.6 MG/DL (0.2-1.0); Calcium 8.8 MG/DL (8.5-10.1); Osmolality,Calculated 264.4 MOS/KG (273-304); Potassium 4.4 MMOL/L (3.5-5.1); Total Protein 7.5 G/DL (6.4-8.2)
[2020-09-01] MEDS: LEVALBUTEROL 1.25 MG/3 ML NEB RESP TX SCH (15:25)
[2020-09-01] MEDS: methylPREDNISolone SOD SUC 125 MG/2 ML VIAL IV SCH (18:10)
[2020-09-01] MEDS: ALBUTEROL/IPRATROPIUM 3 ML NEB RESP TX SCH (19:07)
[2020-09-01] MEDS: MAGNESIUM OXIDE 400 MG TABLET PO SCH (21:06)
[2020-09-01] MEDS: PANTOPRAZOLE 40 MG TABLET PO SCH (21:06)
[2020-09-01] MEDS: RANOLAZINE 500 MG TABLET PO SCH (21:06)
[2020-09-01] MEDS: DOXYCYCLINE HYCLATE 100 MG CAPSULE PO SCH (21:06)
[2020-09-01] MEDS: ISOSORBIDE MONONITRATE 60 MG TABLET PO SCH (21:06)
[2020-09-01] MEDS: APIXABAN 5 MG TABLET PO SCH (21:06)
[2020-09-01] MEDS: ATORVASTATIN 40 MG TABLET PO SCH (21:06)
[2020-09-02] MEDS: ALBUTEROL/IPRATROPIUM 3 ML NEB RESP TX SCH ×4 (01:13→19:46)
[2020-09-02 05:43] LABS: Hematocrit 25.8 VOL% (35.7-47.0); Hemoglobin 8.6 GM/DL (12.0-16.0); Immature Granulocytes % 0.4 %; Immature Granulocytes Absolute 0.02 #; Lymphocytes # 0.4 10*3/uL (1.4-4.0); Lymphocytes % 7.4 % (21.3-54.2); Mean Corpuscular HGB Conc 33.3 GM/DL (32-36); Mean Corpuscular Volume 81.6 FL (87-102); Mean Platelet Volume 10.1 FL (9.6-12.0); Monocytes % 2.3 % (1.7-12.7); Neutrophils % 89.9 % (38.7-73.9); Platelet Count 288 T/CUMM (130-400); Red Blood Count 3.16 MC/CUMM (3.8-5.5); Red Cell Distribution Width 14.6 % (9.3-17.3); White Blood Count 5.3 T/CUMM (4-12)
[2020-09-02] MEDS: methylPREDNISolone SOD SUC 125 MG/2 ML VIAL IV SCH ×2 (05:52→17:45)
[2020-09-02 06:00] LABS: Calcium 8.9 MG/DL (8.5-10.1); Osmolality,Calculated 265.5 MOS/KG (273-304); Potassium 4.2 MMOL/L (3.5-5.1)
[2020-09-02] MEDS: LEVALBUTEROL 1.25 MG/3 ML NEB RESP TX SCH ×2 (08:07→08:08)
[2020-09-02] MEDS: ASPIRIN CHEW 81 MG TABLET PO SCH (08:24)
[2020-09-02] MEDS: RANOLAZINE 500 MG TABLET PO SCH ×2 (08:24→20:57)
[2020-09-02] MEDS: MAGNESIUM OXIDE 400 MG TABLET PO SCH ×2 (08:24→20:58)
[2020-09-02] MEDS: PANTOPRAZOLE 40 MG TABLET PO SCH ×2 (08:25→20:58)
[2020-09-02] MEDS: AMIODARONE 200 MG TABLET PO SCH (08:25)
[2020-09-02] MEDS: SPIRONOLACTONE 25 MG TABLET PO SCH (08:25)
[2020-09-02] MEDS: METOPROLOL TARTRATE 25 MG TABLET PO SCH ×2 (08:25→20:58)
[2020-09-02] MEDS: DOXYCYCLINE HYCLATE 100 MG CAPSULE PO SCH ×2 (08:25→20:57)
[2020-09-02] MEDS: APIXABAN 5 MG TABLET PO SCH ×2 (08:25→20:57)
[2020-09-02] MEDS ORDERED: METOPROLOL TARTRATE 25 MG TABLET PO SCH (09:00)
[2020-09-02] MEDS: ACETAMINOPHEN 325 MG TABLET PO PRN (20:58)
[2020-09-02] MEDS: ATORVASTATIN 40 MG TABLET PO SCH (20:58)
[2020-09-02] MEDS: ISOSORBIDE MONONITRATE 60 MG TABLET PO SCH (20:58)
[2020-09-03] MEDS: ALBUTEROL/IPRATROPIUM 3 ML NEB RESP TX SCH ×4 (00:15→19:43)
[2020-09-03] MEDS: methylPREDNISolone SOD SUC 125 MG/2 ML VIAL IV SCH ×2 (05:24→18:40)
[2020-09-03 07:40] LABS: Basophils % 0.1 % (0.0-0.8); Hematocrit 26.6 VOL% (35.7-47.0); Hemoglobin 8.7 GM/DL (12.0-16.0); Immature Granulocytes % 0.8 %; Immature Granulocytes Absolute 0.13 #; Lymphocytes # 0.5 10*3/uL (1.4-4.0); Lymphocytes % 3.4 % (21.3-54.2); Mean Corpuscular HGB Conc 32.7 GM/DL (32-36); Mean Corpuscular Volume 83.4 FL (87-102); Monocytes % 2.7 % (1.7-12.7); Platelet Count 306 T/CUMM (130-400); Red Blood Count 3.19 MC/CUMM (3.8-5.5); White Blood Count 15.8 T/CUMM (4-12)
[2020-09-03 07:56] LABS: Calcium 8.8 MG/DL (8.5-10.1); Potassium 4.7 MMOL/L (3.5-5.1)
[2020-09-03 07:59] LABS: Osmolality,Calculated 269.4 MOS/KG (273-304)
[2020-09-03 08:02] LABS: Band Neutrophils 5 % (0-10); Lymphocytes 7 % (20-55); Segmented Neutrophils 87 % (50-85); Total Cells Counted 100
[2020-09-03 08:03] LABS: Hypochromasia 1+; Macrocytosis 1+; Platelet Estimate Normal
[2020-09-03] MEDS: PANTOPRAZOLE 40 MG TABLET PO SCH ×2 (08:53→21:01)
[2020-09-03] MEDS: DOXYCYCLINE HYCLATE 100 MG CAPSULE PO SCH ×2 (08:53→21:01)
[2020-09-03] MEDS: APIXABAN 5 MG TABLET PO SCH ×2 (08:53→21:00)
[2020-09-03] MEDS: AMIODARONE 200 MG TABLET PO SCH (08:53)
[2020-09-03] MEDS: MAGNESIUM OXIDE 400 MG TABLET PO SCH ×2 (08:53→21:00)
[2020-09-03] MEDS: RANOLAZINE 500 MG TABLET PO SCH ×2 (08:53→21:00)
[2020-09-03] MEDS: SPIRONOLACTONE 25 MG TABLET PO SCH (08:53)
[2020-09-03] MEDS: ASPIRIN CHEW 81 MG TABLET PO SCH (08:53)
[2020-09-03] MEDS ORDERED: METOPROLOL TARTRATE 25 MG TABLET PO SCH (09:00)
[2020-09-03] MEDS ORDERED: DIGOXIN 0.125 MG TABLET PO SCH ×2 (13:00)
[2020-09-03] MEDS ORDERED: METOPROLOL TARTRATE 25 MG TABLET PO ONE (17:14)
[2020-09-03] MEDS: METOPROLOL TARTRATE 50 MG TABLET PO SCH (21:00)
[2020-09-03] MEDS: ATORVASTATIN 40 MG TABLET PO SCH (21:01)
[2020-09-03] MEDS: ISOSORBIDE MONONITRATE 60 MG TABLET PO SCH (21:03)
[2020-09-04] MEDS: ALBUTEROL/IPRATROPIUM 3 ML NEB RESP TX SCH ×4 (01:30→19:57)
[2020-09-04] MEDS: methylPREDNISolone SOD SUC 125 MG/2 ML VIAL IV SCH ×2 (05:56→18:45)
[2020-09-04 06:12] LABS: Basophils % 0.1 % (0.0-0.8); Hematocrit 26.8 VOL% (35.7-47.0); Hemoglobin 8.9 GM/DL (12.0-16.0); Immature Granulocytes % 0.6 %; Lymphocytes # 0.5 10*3/uL (1.4-4.0); Mean Corpuscular HGB Conc 33.2 GM/DL (32-36); Mean Corpuscular Volume 82.7 FL (87-102); Mean Platelet Volume 9.7 FL (9.6-12.0); Monocytes % 3.6 % (1.7-12.7); Neutrophils % 92.7 % (38.7-73.9); Platelet Count 301 T/CUMM (130-400); Red Blood Count 3.24 MC/CUMM (3.8-5.5); Red Cell Distribution Width 14.6 % (9.3-17.3); White Blood Count 16.5 T/CUMM (4-12)
[2020-09-04 06:43] LABS: Hypochromasia 1+; Lymphocytes 3 % (20-55); Microcytosis Slight; Platelet Estimate Normal; Segmented Neutrophils 95 % (50-85); Total Cells Counted 100
[2020-09-04 06:52] LABS: Calcium 8.8 MG/DL (8.5-10.1); Osmolality,Calculated 272.4 MOS/KG (273-304); Potassium 4.3 MMOL/L (3.5-5.1)
[2020-09-04] MEDS: PANTOPRAZOLE 40 MG TABLET PO SCH ×2 (10:07→20:13)
[2020-09-04] MEDS: SPIRONOLACTONE 25 MG TABLET PO SCH (10:07)
[2020-09-04] MEDS: RANOLAZINE 500 MG TABLET PO SCH ×2 (10:07→20:12)
[2020-09-04] MEDS: METOPROLOL TARTRATE 50 MG TABLET PO SCH ×2 (10:07→20:13)
[2020-09-04] MEDS: DOXYCYCLINE HYCLATE 100 MG CAPSULE PO SCH ×2 (10:07→20:12)
[2020-09-04] MEDS: APIXABAN 5 MG TABLET PO SCH ×2 (10:08→20:13)
[2020-09-04] MEDS: ASPIRIN CHEW 81 MG TABLET PO SCH (10:08)
[2020-09-04] MEDS: MAGNESIUM OXIDE 400 MG TABLET PO SCH ×2 (10:08→20:12)
[2020-09-04] MEDS: AMIODARONE 200 MG TABLET PO SCH (10:08)
[2020-09-04] MEDS: ACETAMINOPHEN 325 MG TABLET PO PRN ×2 (10:12→20:15)
[2020-09-04] MEDS: ISOSORBIDE MONONITRATE 60 MG TABLET PO SCH (20:13)
[2020-09-04] MEDS: ATORVASTATIN 40 MG TABLET PO SCH (20:14)
[2020-09-05] MEDS: ALBUTEROL/IPRATROPIUM 3 ML NEB RESP TX SCH ×4 (00:56→20:30)
[2020-09-05] MEDS: methylPREDNISolone SOD SUC 125 MG/2 ML VIAL IV SCH ×2 (05:48→17:39)
[2020-09-05 06:52] LABS: Basophils % 0.1 % (0.0-0.8); Hematocrit 26.4 VOL% (35.7-47.0); Hemoglobin 8.8 GM/DL (12.0-16.0); Immature Granulocytes % 0.7 %; Immature Granulocytes Absolute 0.09 #; Lymphocytes # 0.6 10*3/uL (1.4-4.0); Lymphocytes % 4.3 % (21.3-54.2); Mean Corpuscular HGB Conc 33.3 GM/DL (32-36); Mean Corpuscular Volume 82.2 FL (87-102); Mean Platelet Volume 9.9 FL (9.6-12.0); Monocytes % 4.9 % (1.7-12.7); Platelet Count 309 T/CUMM (130-400); Red Blood Count 3.21 MC/CUMM (3.8-5.5); Red Cell Distribution Width 14.7 % (9.3-17.3); White Blood Count 13.3 T/CUMM (4-12)
[2020-09-05 07:05] LABS: Calcium 8.6 MG/DL (8.5-10.1); Osmolality,Calculated 274.2 MOS/KG (273-304); Potassium 4.6 MMOL/L (3.5-5.1)
[2020-09-05 07:33] LABS: Hypochromasia 1+; Lymphocytes 4 % (20-55); Microcytosis 1+; Platelet Estimate Adequate; Segmented Neutrophils 95 % (50-85); Total Cells Counted 100
[2020-09-05] MEDS: NITROGLYCERIN SL 0.4 MG TABLET SL PRN (09:04)
[2020-09-05] MEDS: RANOLAZINE 500 MG TABLET PO SCH ×3 (09:05→23:08)
[2020-09-05] MEDS: APIXABAN 5 MG TABLET PO SCH ×2 (09:06→21:34)
[2020-09-05] MEDS: PANTOPRAZOLE 40 MG TABLET PO SCH ×2 (09:06→21:34)
[2020-09-05] MEDS: AMIODARONE 200 MG TABLET PO SCH (09:06)
[2020-09-05] MEDS: MAGNESIUM OXIDE 400 MG TABLET PO SCH ×2 (09:06→21:33)
[2020-09-05] MEDS: SPIRONOLACTONE 25 MG TABLET PO SCH (09:06)
[2020-09-05] MEDS: METOPROLOL TARTRATE 50 MG TABLET PO SCH ×2 (09:06→21:58)
[2020-09-05] MEDS: ASPIRIN CHEW 81 MG TABLET PO SCH (09:06)
[2020-09-05] MEDS: DOXYCYCLINE HYCLATE 100 MG CAPSULE PO SCH ×2 (09:06→21:33)
[2020-09-05] MEDS: ACETAMINOPHEN 325 MG TABLET PO PRN ×2 (17:35→23:10)
[2020-09-05] MEDS: ATORVASTATIN 40 MG TABLET PO SCH (21:34)
[2020-09-05] MEDS: ISOSORBIDE MONONITRATE 60 MG TABLET PO SCH (21:58)
[2020-09-06] MEDS: NITROGLYCERIN SL 0.4 MG TABLET SL PRN ×3 (01:15→05:57)
[2020-09-06] MEDS: ALBUTEROL/IPRATROPIUM 3 ML NEB RESP TX SCH ×4 (03:46→19:40)
[2020-09-06 05:16] LABS: Basophils % 0.1 % (0.0-0.8); Hematocrit 28.7 VOL% (35.7-47.0); Hemoglobin 9.5 GM/DL (12.0-16.0); Immature Granulocytes % 0.9 %; Immature Granulocytes Absolute 0.13 #; Lymphocytes # 0.6 10*3/uL (1.4-4.0); Lymphocytes % 4.5 % (21.3-54.2); Mean Corpuscular HGB Conc 33.1 GM/DL (32-36); Mean Corpuscular Volume 82.7 FL (87-102); Monocytes % 6.2 % (1.7-12.7); NRBC # 0.02 10*3/uL; Neutrophils % 88.3 % (38.7-73.9); Platelet Count 317 T/CUMM (130-400); Red Blood Count 3.47 MC/CUMM (3.8-5.5); Red Cell Distribution Width 14.7 % (9.3-17.3); White Blood Count 13.9 T/CUMM (4-12)
[2020-09-06 05:33] LABS: Calcium 8.9 MG/DL (8.5-10.1); Osmolality,Calculated 274.2 MOS/KG (273-304); Potassium 5.1 MMOL/L (3.5-5.1)
[2020-09-06 05:40] LABS: Lymphocytes 2 % (20-55); Platelet Estimate Adequate; Segmented Neutrophils 96 % (50-85); Total Cells Counted 100
[2020-09-06 05:41] LABS: Hypochromasia 1+; Microcytosis 1+; Ovalocytes Slight
[2020-09-06] MEDS: methylPREDNISolone SOD SUC 125 MG/2 ML VIAL IV SCH ×2 (06:15→17:52)
[2020-09-06] MEDS ORDERED: MORPHINE 4 MG/1 ML VIAL IV PRN (06:35)
[2020-09-06] MEDS: SPIRONOLACTONE 25 MG TABLET PO SCH (09:06)
[2020-09-06] MEDS: APIXABAN 5 MG TABLET PO SCH ×2 (09:07→21:54)
[2020-09-06] MEDS: DOXYCYCLINE HYCLATE 100 MG CAPSULE PO SCH ×2 (09:07→21:53)
[2020-09-06] MEDS: AMIODARONE 200 MG TABLET PO SCH (09:07)
[2020-09-06] MEDS: PANTOPRAZOLE 40 MG TABLET PO SCH ×2 (09:07→21:53)
[2020-09-06] MEDS: MAGNESIUM OXIDE 400 MG TABLET PO SCH ×2 (09:07→21:53)
[2020-09-06] MEDS: ASPIRIN CHEW 81 MG TABLET PO SCH (09:07)
[2020-09-06] MEDS: METOPROLOL TARTRATE 50 MG TABLET PO SCH ×2 (09:07→21:54)
[2020-09-06] MEDS: RANOLAZINE 500 MG TABLET PO SCH ×2 (09:07→21:52)
[2020-09-06] MEDS: SODIUM CHLORIDE 0.9% 1,000 ML IV SCH (13:30)
[2020-09-06] MEDS ORDERED: propofoL 200 MG/20 ML VIAL IV ONE (14:25)
[2020-09-06] MEDS: ATORVASTATIN 40 MG TABLET PO SCH (21:52)
[2020-09-06] MEDS: ISOSORBIDE MONONITRATE 60 MG TABLET PO SCH (21:54)
[2020-09-07] MEDS: ALBUTEROL/IPRATROPIUM 3 ML NEB RESP TX SCH ×4 (00:29→20:15)
[2020-09-07] MEDS: methylPREDNISolone SOD SUC 125 MG/2 ML VIAL IV SCH ×2 (05:50→17:48)
[2020-09-07 08:09] LABS: Basophils % 0.1 % (0.0-0.8); Hemoglobin 8.9 GM/DL (12.0-16.0); Immature Granulocytes % 0.5 %; Immature Granulocytes Absolute 0.06 #; Lymphocytes # 0.4 10*3/uL (1.4-4.0); Mean Corpuscular HGB Conc 34.2 GM/DL (32-36); Mean Corpuscular Volume 80.7 FL (87-102); Mean Platelet Volume 9.5 FL (9.6-12.0); Monocytes % 4.8 % (1.7-12.7); NRBC # 0.02 10*3/uL; Neutrophils % 90.6 % (38.7-73.9); Platelet Count 281 T/CUMM (130-400); Red Blood Count 3.22 MC/CUMM (3.8-5.5); Red Cell Distribution Width 14.8 % (9.3-17.3); White Blood Count 11.1 T/CUMM (4-12)
[2020-09-07 08:31] LABS: Hypochromasia 1+; Lymphocytes 6 % (20-55); Microcytosis 1+; Ovalocytes Slight; Platelet Estimate Adequate; Segmented Neutrophils 91 % (50-85); Total Cells Counted 100
[2020-09-07 08:36] LABS: Calcium 8.6 MG/DL (8.5-10.1); Potassium 5.2 MMOL/L (3.5-5.1)
[2020-09-07] MEDS: RANOLAZINE 500 MG TABLET PO SCH ×2 (08:47→21:42)
[2020-09-07] MEDS: METOPROLOL TARTRATE 50 MG TABLET PO SCH ×2 (08:51→21:32)
[2020-09-07] MEDS: SPIRONOLACTONE 25 MG TABLET PO SCH (08:51)
[2020-09-07] MEDS: AMIODARONE 200 MG TABLET PO SCH (08:51)
[2020-09-07] MEDS: MAGNESIUM OXIDE 400 MG TABLET PO SCH ×2 (08:51→21:31)
[2020-09-07] MEDS: APIXABAN 5 MG TABLET PO SCH ×2 (08:51→21:32)
[2020-09-07] MEDS: DOXYCYCLINE HYCLATE 100 MG CAPSULE PO SCH ×2 (08:51→21:31)
[2020-09-07] MEDS: PANTOPRAZOLE 40 MG TABLET PO SCH ×2 (08:51→21:31)
[2020-09-07] MEDS: ASPIRIN CHEW 81 MG TABLET PO SCH (08:51)
[2020-09-07] MEDS: SODIUM CHLORIDE 0.9% 1,000 ML IV SCH (14:36)
[2020-09-07] MEDS: ATORVASTATIN 40 MG TABLET PO SCH (21:31)
[2020-09-07] MEDS: ISOSORBIDE MONONITRATE 60 MG TABLET PO SCH (21:32)
[2020-09-08] MEDS: ALBUTEROL/IPRATROPIUM 3 ML NEB RESP TX SCH ×4 (01:38→19:48)
[2020-09-08] MEDS: methylPREDNISolone SOD SUC 125 MG/2 ML VIAL IV SCH ×2 (06:05→17:10)
[2020-09-08] MEDS: ASPIRIN CHEW 81 MG TABLET PO SCH (08:55)
[2020-09-08] MEDS: AMIODARONE 200 MG TABLET PO SCH (08:56)
[2020-09-08] MEDS: METOPROLOL TARTRATE 50 MG TABLET PO SCH ×2 (08:56→21:56)
[2020-09-08] MEDS: MAGNESIUM OXIDE 400 MG TABLET PO SCH ×2 (08:56→21:56)
[2020-09-08] MEDS: APIXABAN 5 MG TABLET PO SCH ×2 (08:56→21:56)
[2020-09-08] MEDS: PANTOPRAZOLE 40 MG TABLET PO SCH ×2 (08:56→21:56)
[2020-09-08] MEDS: RANOLAZINE 500 MG TABLET PO SCH ×2 (08:57→21:56)
[2020-09-08] MEDS: DOXYCYCLINE HYCLATE 100 MG CAPSULE PO SCH ×2 (08:57→21:56)
[2020-09-08] MEDS: SODIUM CHLORIDE 0.9% 1,000 ML IV SCH (13:17)
[2020-09-08] MEDS: ATORVASTATIN 40 MG TABLET PO SCH (21:56)
[2020-09-08] MEDS: ISOSORBIDE MONONITRATE 60 MG TABLET PO SCH (21:56)
[2020-09-09] MEDS: ALBUTEROL/IPRATROPIUM 3 ML NEB RESP TX SCH ×2 (01:25→06:51)
[2020-09-09 05:38] LABS: Basophils % 0.1 % (0.0-0.8); Hematocrit 25.5 VOL% (35.7-47.0); Hemoglobin 8.5 GM/DL (12.0-16.0); Immature Granulocytes % 0.7 %; Lymphocytes # 0.4 10*3/uL (1.4-4.0); Lymphocytes % 2.7 % (21.3-54.2); Mean Corpuscular HGB Conc 33.3 GM/DL (32-36); Mean Corpuscular Volume 80.4 FL (87-102); Mean Platelet Volume 9.6 FL (9.6-12.0); Monocytes % 5.2 % (1.7-12.7); NRBC # 0.02 10*3/uL; Neutrophils % 91.3 % (38.7-73.9); Platelet Count 300 T/CUMM (130-400); Red Blood Count 3.17 MC/CUMM (3.8-5.5); Red Cell Distribution Width 14.8 % (9.3-17.3); White Blood Count 14.6 T/CUMM (4-12)
[2020-09-09 05:54] LABS: Calcium 8.6 MG/DL (8.5-10.1); Osmolality,Calculated 280.8 MOS/KG (273-304); Potassium 4.6 MMOL/L (3.5-5.1)
[2020-09-09 06:03] LABS: Hypochromasia 2+; Lymphocytes 2 % (20-55); Microcytosis 1+; Nucleated Red Blood Cells 1 (0-5); Platelet Estimate Adequate; Segmented Neutrophils 94 % (50-85); Total Cells Counted 100
[2020-09-09] MEDS: methylPREDNISolone SOD SUC 125 MG/2 ML VIAL IV SCH (06:11)
[2020-09-09] MEDS: PANTOPRAZOLE 40 MG TABLET PO SCH (08:08)
[2020-09-09] MEDS: AMIODARONE 200 MG TABLET PO SCH (08:08)
[2020-09-09] MEDS: METOPROLOL TARTRATE 50 MG TABLET PO SCH (08:08)
[2020-09-09] MEDS: MAGNESIUM OXIDE 400 MG TABLET PO SCH (08:08)
[2020-09-09] MEDS: ASPIRIN CHEW 81 MG TABLET PO SCH (08:08)
[2020-09-09] MEDS: RANOLAZINE 500 MG TABLET PO SCH (08:08)
[2020-09-09] MEDS: APIXABAN 5 MG TABLET PO SCH (08:08)
[2020-09-09 08:56] VITALS: BP 129/54
[2020-09-09] MEDS ORDERED: METOPROLOL TARTRATE 25 MG TABLET PO SCH (21:00)
== END 2020-09-09 12:25 | disposition home health service (06) | DRG 309 ==
LOC: N.TELES 13:07
PROVIDERS: ADMIT Internal Medicine Cardiovascular Disease; ATTEND Internal Medicine Cardiovascular Disease

== ENCOUNTER 2020-10-05 19:10 | Inpatient (IN) ==
[2020-10-05] MEDS ORDERED: ONDANSETRON 4 MG/2 ML VIAL IV STA ×2 (19:47→20:44)
[2020-10-05] MEDS ORDERED: SODIUM CHLORIDE 0.9% 1,000 ML IV STA (19:47)
[2020-10-05 20:19] LABS: Basophils % 0.1 % (0.0-0.8); Eosinophils % 0.1 % (0.00-10.9); Hematocrit 20.9 VOL% (35.7-47.0); Hemoglobin 6.6 GM/DL (12.0-16.0); Immature Granulocytes % 1.1 %; Immature Granulocytes Absolute 0.11 #; Lymphocytes # 1.6 10*3/uL (1.4-4.0); Lymphocytes % 16.8 % (21.3-54.2); Mean Corpuscular HGB Conc 31.6 GM/DL (32-36); Mean Corpuscular Volume 82.6 FL (87-102); Mean Platelet Volume 9.3 FL (9.6-12.0); Monocytes % 11.4 % (1.7-12.7); NRBC # 0.02 10*3/uL; Neutrophils % 70.5 % (38.7-73.9); Platelet Count 343 T/CUMM (130-400); Red Blood Count 2.53 MC/CUMM (3.8-5.5); Red Cell Distribution Width 18.3 % (9.3-17.3); White Blood Count 9.6 T/CUMM (4-12)
[2020-10-05 20:30] LABS: INR 1.1; PT Patient Result 12.4 SECS (10.5-12.0)
[2020-10-05] MEDS ORDERED: PANTOPRAZOLE 40 MG VIAL IV STA (20:37)
[2020-10-05 20:38] LABS: Alanine Aminotransferase 34 U/L (13-56); Albumin 3.5 G/DL (3.4-5.0); Alkaline Phosphatase 60 U/L (45-117); Aspartate Amino Transferase 18 U/L (0-37); Bilirubin,Total < 0.39 MG/DL (0.2-1.0); Blood Urea Nitrogen 25 MG/DL (7-18); Carbon Dioxide 28 MMOL/L (21-32); Estimated Glom Filtration Rate 36 ML/MIN; Glucose 112 MG/DL (74-106); Osmolality,Calculated 274.1 MOS/KG (273-304); Potassium 4.4 MMOL/L (3.5-5.1); Sodium 135 MMOL/L (136-145); Total Protein 6.5 G/DL (6.4-8.2)
[2020-10-05] MEDS ORDERED: SODIUM CHLORIDE 0.9% 1,000 ML IV PRN (20:38)
[2020-10-05] MEDS ORDERED: MORPHINE 4 MG/1 ML VIAL ONE (20:42)
[2020-10-05] MEDS ORDERED: MORPHINE 4 MG/1 ML VIAL IV STA (20:44)
[2020-10-05] MEDS ORDERED: ONDANSETRON 4 MG/2 ML VIAL IV PRN (22:49)
[2020-10-05] MEDS ORDERED: DEXTROSE 50% 25 GM/50 ML VIAL IV PRN (22:49)
[2020-10-05] MEDS ORDERED: GLUCAGON 1 MG VIAL IM PRN (22:49)
[2020-10-06] MEDS ORDERED: FUROSEMIDE 40 MG/4 ML VIAL IV ONE (04:24)
[2020-10-06 06:41] LABS: Hematocrit 27.1 VOL% (35.7-47.0)
[2020-10-06 07:04] LABS: Albumin 3.3 G/DL (3.4-5.0); Bilirubin,Total 0.8 MG/DL (0.2-1.0); Calcium 8.8 MG/DL (8.5-10.1); Osmolality,Calculated 272.1 MOS/KG (273-304); Potassium 3.9 MMOL/L (3.5-5.1); Total Protein 6.6 G/DL (6.4-8.2)
[2020-10-06 08:53] LABS: Basophils % 0.2 % (0.0-0.8); Hematocrit 28.4 VOL% (35.7-47.0); Hemoglobin 9.1 GM/DL (12.0-16.0); Immature Granulocytes % 0.5 %; Immature Granulocytes Absolute 0.06 #; Lymphocytes # 1.3 10*3/uL (1.4-4.0); Lymphocytes % 11.2 % (21.3-54.2); Mean Corpuscular Volume 85.8 FL (87-102); Mean Platelet Volume 9.5 FL (9.6-12.0); Monocytes % 8.2 % (1.7-12.7); Neutrophils % 79.9 % (38.7-73.9); Platelet Count 285 T/CUMM (130-400); Red Blood Count 3.31 MC/CUMM (3.8-5.5); Red Cell Distribution Width 17.7 % (9.3-17.3); White Blood Count 11.3 T/CUMM (4-12)
[2020-10-06 09:21] LABS: Calcium 8.5 MG/DL (8.5-10.1); Osmolality,Calculated 273.1 MOS/KG (273-304); Potassium 3.8 MMOL/L (3.5-5.1)
[2020-10-06] MEDS ORDERED: FUROSEMIDE 40 MG TABLET PO SCH (09:30)
[2020-10-06] MEDS ORDERED: METOPROLOL TARTRATE 25 MG TABLET PO SCH (09:30)
[2020-10-06] MEDS: RANOLAZINE 500 MG TABLET PO SCH ×2 (10:14→21:08)
[2020-10-06] MEDS: MULTIVITAMIN (CENTRUM) TABLET PO SCH (10:15)
[2020-10-06] MEDS: SPIRONOLACTONE 25 MG TABLET PO SCH (10:16)
[2020-10-06] MEDS: MAGNESIUM OXIDE 400 MG TABLET PO SCH ×2 (10:16→21:08)
[2020-10-06] MEDS: AMIODARONE 200 MG TABLET PO SCH (10:16)
[2020-10-06] MEDS: PANTOPRAZOLE 40 MG VIAL IV SCH ×2 (10:16→21:17)
[2020-10-06] MEDS: ALBUTEROL 2.5 MG/3 ML NEB RESP TX SCH ×4 (11:29→23:43)
[2020-10-06 13:04] LABS: % Iron Saturation 7.1 % (18-50); Ferritin 25.5 ng/ml (8-252)
[2020-10-06 13:19] LABS: Hematocrit 27.6 VOL% (35.7-47.0); Hemoglobin 9.2 GM/DL (12.0-16.0)
[2020-10-06] MEDS ORDERED: SODIUM CHLORIDE 0.9% 250 ML IV ONE (15:48)
[2020-10-06 16:09] LABS: Hematocrit 27.3 VOL% (35.7-47.0)
[2020-10-06 18:08] LABS: Hematocrit 28.4 VOL% (35.7-47.0); Hemoglobin 9.2 GM/DL (12.0-16.0)
[2020-10-06] MEDS: ATORVASTATIN 40 MG TABLET PO SCH (21:08)
[2020-10-06] MEDS: DOCUSATE SODIUM 100 MG/10 ML UDCUP PO SCH (21:08)
[2020-10-07 00:43] LABS: Hematocrit 25.1 VOL% (35.7-47.0); Hemoglobin 8.6 GM/DL (12.0-16.0)
[2020-10-07] MEDS: ALBUTEROL 2.5 MG/3 ML NEB RESP TX SCH ×5 (03:21→19:47)
[2020-10-07 05:19] LABS: Basophils % 0.1 % (0.0-0.8); Eosinophils % 0.1 % (0.00-10.9); Hemoglobin 9.1 GM/DL (12.0-16.0); Immature Granulocytes % 0.4 %; Immature Granulocytes Absolute 0.04 #; Lymphocytes % 10.8 % (21.3-54.2); Mean Corpuscular HGB Conc 33.7 GM/DL (32-36); Mean Corpuscular Volume 83.1 FL (87-102); Mean Platelet Volume 9.8 FL (9.6-12.0); Neutrophils % 76.6 % (38.7-73.9); Platelet Count 257 T/CUMM (130-400); Red Blood Count 3.25 MC/CUMM (3.8-5.5); Red Cell Distribution Width 17.4 % (9.3-17.3); White Blood Count 9.3 T/CUMM (4-12)
[2020-10-07 05:34] LABS: Calcium 8.7 MG/DL (8.5-10.1); Osmolality,Calculated 270.1 MOS/KG (273-304); Potassium 3.7 MMOL/L (3.5-5.1)
[2020-10-07] MEDS: SPIRONOLACTONE 25 MG TABLET PO SCH (08:03)
[2020-10-07] MEDS: LACTATED RINGERS 1,000 ML IV SCH (08:03)
[2020-10-07] MEDS: AMIODARONE 200 MG TABLET PO SCH (08:04)
[2020-10-07] MEDS: PANTOPRAZOLE 40 MG VIAL IV SCH ×2 (08:04→21:03)
[2020-10-07] MEDS: MAGNESIUM OXIDE 400 MG TABLET PO SCH ×2 (08:04→22:16)
[2020-10-07] MEDS: MULTIVITAMIN (CENTRUM) TABLET PO SCH (08:04)
[2020-10-07] MEDS: DOCUSATE SODIUM 100 MG/10 ML UDCUP PO SCH ×2 (08:04→21:01)
[2020-10-07] MEDS: RANOLAZINE 500 MG TABLET PO SCH ×2 (08:04→21:01)
[2020-10-07] MEDS ORDERED: BISACODYL 5 MG TABLET PO ONE (12:00)
[2020-10-07] MEDS ORDERED: propofoL 200 MG/20 ML VIAL IV ONE (13:50)
[2020-10-07] MEDS ORDERED: LIDOCAINE 2% 5 ML VIAL ONE (13:50)
[2020-10-07] MEDS ORDERED: ETOMIDATE 20 MG/10 ML VIAL IV ONE (13:50)
[2020-10-07] MEDS ORDERED: POLYETHYLENE GLYCOL POWDER 255 GM BOTTLE PO ONE (18:00)
[2020-10-07] MEDS: METOPROLOL TARTRATE 25 MG TABLET PO SCH (21:01)
[2020-10-07] MEDS: ATORVASTATIN 40 MG TABLET PO SCH (21:01)
[2020-10-08] MEDS: ALBUTEROL 2.5 MG/3 ML NEB RESP TX SCH ×7 (00:51→23:50)
[2020-10-08 05:43] LABS: Basophils % 0.1 % (0.0-0.8); Eosinophils % 0.1 % (0.00-10.9); Hematocrit 26.2 VOL% (35.7-47.0); Hemoglobin 8.8 GM/DL (12.0-16.0); Immature Granulocytes % 0.4 %; Immature Granulocytes Absolute 0.04 #; Lymphocytes % 9.7 % (21.3-54.2); Mean Corpuscular HGB Conc 33.6 GM/DL (32-36); Mean Corpuscular Volume 83.2 FL (87-102); Mean Platelet Volume 10.2 FL (9.6-12.0); Monocytes % 9.9 % (1.7-12.7); Neutrophils % 79.8 % (38.7-73.9); Platelet Count 234 T/CUMM (130-400); Red Blood Count 3.15 MC/CUMM (3.8-5.5); Red Cell Distribution Width 17.5 % (9.3-17.3); White Blood Count 9.8 T/CUMM (4-12)
[2020-10-08 05:50] LABS: INR 1.1; PT Patient Result 11.9 SECS (10.5-12.0)
[2020-10-08 06:11] LABS: Calcium 8.7 MG/DL (8.5-10.1); Potassium 3.8 MMOL/L (3.5-5.1)
[2020-10-08] MEDS ORDERED: FLUCONAZOLE 200 MG TABLET PO ONE (08:47)
[2020-10-08] MEDS ORDERED: NYSTATIN 500,000 UNIT/5 ML UDCUP SWISH/SWAL SCH (09:00)
[2020-10-08] MEDS: METOPROLOL TARTRATE 25 MG TABLET PO SCH ×2 (09:45→21:03)
[2020-10-08] MEDS: LACTATED RINGERS 1,000 ML IV SCH ×3 (09:48→21:07)
[2020-10-08] MEDS ORDERED: propofoL 200 MG/20 ML VIAL IV ONE (12:24)
[2020-10-08] MEDS ORDERED: ETOMIDATE 20 MG/10 ML VIAL IV ONE (12:24)
[2020-10-08] MEDS ORDERED: LIDOCAINE 2% 5 ML VIAL ONE (12:24)
[2020-10-08] MEDS ORDERED: ISOSORBIDE MONONITRATE 60 MG TABLET PO SCH (13:00)
[2020-10-08] MEDS: MULTIVITAMIN (CENTRUM) TABLET PO SCH (13:47)
[2020-10-08] MEDS: FUROSEMIDE 20 MG TABLET PO SCH (13:48)
[2020-10-08] MEDS: AMIODARONE 200 MG TABLET PO SCH (13:48)
[2020-10-08] MEDS: RANOLAZINE 500 MG TABLET PO SCH ×2 (13:48→21:02)
[2020-10-08] MEDS: MAGNESIUM OXIDE 400 MG TABLET PO SCH ×2 (13:48→21:02)
[2020-10-08] MEDS: SPIRONOLACTONE 25 MG TABLET PO SCH (13:52)
[2020-10-08] MEDS: PANTOPRAZOLE 40 MG VIAL IV SCH ×2 (13:53→21:02)
[2020-10-08] MEDS: DOCUSATE SODIUM 100 MG/10 ML UDCUP PO SCH ×2 (13:53→21:03)
[2020-10-08] MEDS: ATORVASTATIN 40 MG TABLET PO SCH (21:03)
[2020-10-09] MEDS: ALBUTEROL 2.5 MG/3 ML NEB RESP TX SCH ×6 (04:50→23:47)
[2020-10-09 06:11] LABS: Basophils % 0.2 % (0.0-0.8); Eosinophils % 0.1 % (0.00-10.9); Hematocrit 25.5 VOL% (35.7-47.0); Hemoglobin 8.3 GM/DL (12.0-16.0); Immature Granulocytes % 0.7 %; Immature Granulocytes Absolute 0.06 #; Lymphocytes % 12.4 % (21.3-54.2); Mean Corpuscular HGB Conc 32.5 GM/DL (32-36); Mean Corpuscular Volume 85.3 FL (87-102); Mean Platelet Volume 10.1 FL (9.6-12.0); Monocytes % 10.8 % (1.7-12.7); Neutrophils % 75.8 % (38.7-73.9); Platelet Count 244 T/CUMM (130-400); Red Blood Count 2.99 MC/CUMM (3.8-5.5); Red Cell Distribution Width 17.9 % (9.3-17.3); White Blood Count 8.3 T/CUMM (4-12)
[2020-10-09 06:24] LABS: Calcium 8.7 MG/DL (8.5-10.1); Potassium 4.1 MMOL/L (3.5-5.1)
[2020-10-09] MEDS: PANTOPRAZOLE 40 MG VIAL IV SCH ×2 (09:04→21:27)
[2020-10-09] MEDS: MAGNESIUM OXIDE 400 MG TABLET PO SCH ×2 (09:05→21:26)
[2020-10-09] MEDS: ASPIRIN EC 81 MG TABLET PO SCH (09:05)
[2020-10-09] MEDS: MULTIVITAMIN (CENTRUM) TABLET PO SCH (09:05)
[2020-10-09] MEDS: FUROSEMIDE 20 MG TABLET PO SCH (09:05)
[2020-10-09] MEDS: DOCUSATE SODIUM 100 MG/10 ML UDCUP PO SCH ×2 (09:06→21:26)
[2020-10-09] MEDS: NYSTATIN 500,000 UNIT/5 ML UDCUP SWISH/SWAL SCH ×4 (09:06→21:26)
[2020-10-09] MEDS: METOPROLOL TARTRATE 25 MG TABLET PO SCH ×2 (09:06→21:26)
[2020-10-09] MEDS: SPIRONOLACTONE 25 MG TABLET PO SCH (09:06)
[2020-10-09] MEDS: AMIODARONE 200 MG TABLET PO SCH (09:06)
[2020-10-09] MEDS: RANOLAZINE 500 MG TABLET PO SCH ×2 (10:00→21:26)
[2020-10-09] MEDS: ISOSORBIDE MONONITRATE 30 MG TABLET PO SCH (14:17)
[2020-10-09] MEDS: ATORVASTATIN 40 MG TABLET PO SCH (21:26)
[2020-10-10] MEDS: ALBUTEROL 2.5 MG/3 ML NEB RESP TX SCH ×6 (03:11→23:14)
[2020-10-10 06:11] LABS: Basophils % 0.1 % (0.0-0.8); Eosinophils % 0.1 % (0.00-10.9); Hematocrit 24.6 VOL% (35.7-47.0); Hemoglobin 8.1 GM/DL (12.0-16.0); Immature Granulocytes % 0.5 %; Immature Granulocytes Absolute 0.04 #; Lymphocytes # 1.1 10*3/uL (1.4-4.0); Lymphocytes % 12.9 % (21.3-54.2); Mean Corpuscular HGB Conc 32.9 GM/DL (32-36); Mean Corpuscular Volume 83.4 FL (87-102); Monocytes % 12.9 % (1.7-12.7); Neutrophils % 73.5 % (38.7-73.9); Platelet Count 227 T/CUMM (130-400); Red Blood Count 2.95 MC/CUMM (3.8-5.5); Red Cell Distribution Width 17.4 % (9.3-17.3); White Blood Count 8.4 T/CUMM (4-12)
[2020-10-10 06:20] LABS: Calcium 8.8 MG/DL (8.5-10.1); Potassium 4.3 MMOL/L (3.5-5.1)
[2020-10-10] MEDS: ASPIRIN EC 81 MG TABLET PO SCH (09:10)
[2020-10-10] MEDS: AMIODARONE 200 MG TABLET PO SCH (09:10)
[2020-10-10] MEDS: RANOLAZINE 500 MG TABLET PO SCH ×2 (09:10→21:23)
[2020-10-10] MEDS: MULTIVITAMIN (CENTRUM) TABLET PO SCH (09:10)
[2020-10-10] MEDS: SPIRONOLACTONE 25 MG TABLET PO SCH (09:10)
[2020-10-10] MEDS: MAGNESIUM OXIDE 400 MG TABLET PO SCH ×2 (09:10→21:23)
[2020-10-10] MEDS: FUROSEMIDE 20 MG TABLET PO SCH (09:10)
[2020-10-10] MEDS: DOCUSATE SODIUM 100 MG/10 ML UDCUP PO SCH ×2 (09:11→21:22)
[2020-10-10] MEDS: PANTOPRAZOLE 40 MG VIAL IV SCH ×2 (09:11→21:23)
[2020-10-10] MEDS: METOPROLOL TARTRATE 25 MG TABLET PO SCH ×2 (09:11→21:23)
[2020-10-10] MEDS: NYSTATIN 500,000 UNIT/5 ML UDCUP SWISH/SWAL SCH ×4 (09:11→21:23)
[2020-10-10] MEDS ORDERED: BISACODYL 5 MG TABLET PO ONE (12:00)
[2020-10-10] MEDS: ISOSORBIDE MONONITRATE 30 MG TABLET PO SCH (12:18)
[2020-10-10] MEDS ORDERED: ALBUTEROL NEB SOLN 5 MG/ML 20 ML/BOTTLE ONE (14:50)
[2020-10-10] MEDS ORDERED: POLYETHYLENE GLYCOL POWDER 255 GM BOTTLE PO ONE (15:00)
[2020-10-10 21:14] LABS: Bilirubin,Urine Negative (Negative); Blood, Urine Negative (Negative); Glucose,Urine (UA) Negative (Negative); Hyaline Casts,Urine 1 /LPF (0-3); Ketones,Urine Negative (Negative); Mucus,Urine Occasional /LPF (Occasional); Nitrite,Urine Negative (Negative); Protein,Urine Negative; RBC,Urine 2 /HPF (0-4); Squamous Epithelial Cell,Urine Occasional /HPF (0-10); Urine Appearance CLEAR (Clear); Urine Color Yellow (Yellow); Urine Specific Gravity 1.014 (1.001-1.035); Urine Urobilinogen < 2.0 EU/DL (0.2-1.0)
[2020-10-10] MEDS: ATORVASTATIN 40 MG TABLET PO SCH (21:22)
[2020-10-10 21:36] LABS: Barbiturates Screen,Urine Negative (Negative); Benzodiazepines Screen,Urine Negative (Negative); Cannabinoid Screen,Urine Negative (Negative); Opiate Screen,Urine Negative (Negative); Phencyclidine Screen,Urine Negative (Negative)
[2020-10-11] MEDS: ALBUTEROL 2.5 MG/3 ML NEB RESP TX SCH ×4 (03:42→15:15)
[2020-10-11 05:24] LABS: Basophils % 0.2 % (0.0-0.8); Eosinophils % 0.1 % (0.00-10.9); Hematocrit 29.4 VOL% (35.7-47.0); Hemoglobin 9.3 GM/DL (12.0-16.0); Immature Granulocytes % 0.5 %; Immature Granulocytes Absolute 0.05 #; Mean Corpuscular HGB Conc 31.6 GM/DL (32-36); Mean Corpuscular Volume 85.2 FL (87-102); Mean Platelet Volume 10.5 FL (9.6-12.0); Neutrophils % 78.2 % (38.7-73.9); Platelet Count 270 T/CUMM (130-400); Red Blood Count 3.45 MC/CUMM (3.8-5.5); Red Cell Distribution Width 17.5 % (9.3-17.3); White Blood Count 9.6 T/CUMM (4-12)
[2020-10-11 05:54] LABS: Calcium 9.6 MG/DL (8.5-10.1); Potassium 3.7 MMOL/L (3.5-5.1)
[2020-10-11] MEDS ORDERED: POLYETHYLENE GLYCOL POWDER 255 GM BOTTLE PO ONE (06:00)
[2020-10-11] MEDS: LACTATED RINGERS 1,000 ML IV SCH ×4 (07:43→09:47)
[2020-10-11] MEDS: DOCUSATE SODIUM 100 MG/10 ML UDCUP PO SCH (09:47)
[2020-10-11] MEDS: NYSTATIN 500,000 UNIT/5 ML UDCUP SWISH/SWAL SCH ×3 (09:48→16:17)
[2020-10-11] MEDS: RANOLAZINE 500 MG TABLET PO SCH (09:49)
[2020-10-11] MEDS: PANTOPRAZOLE 40 MG VIAL IV SCH (09:49)
[2020-10-11] MEDS: ASPIRIN EC 81 MG TABLET PO SCH (09:49)
[2020-10-11] MEDS: MULTIVITAMIN (CENTRUM) TABLET PO SCH (09:49)
[2020-10-11] MEDS: METOPROLOL TARTRATE 25 MG TABLET PO SCH (09:50)
[2020-10-11] MEDS: AMIODARONE 200 MG TABLET PO SCH (09:50)
[2020-10-11] MEDS: MAGNESIUM OXIDE 400 MG TABLET PO SCH (09:50)
[2020-10-11] MEDS: FUROSEMIDE 20 MG TABLET PO SCH (09:50)
[2020-10-11] MEDS: SPIRONOLACTONE 25 MG TABLET PO SCH (09:50)
[2020-10-11] MEDS: ISOSORBIDE MONONITRATE 30 MG TABLET PO SCH (12:01)
[2020-10-11] MEDS ORDERED: propofoL 200 MG/20 ML VIAL IV ONE (13:27)
[2020-10-11] MEDS ORDERED: LIDOCAINE 2% 5 ML VIAL ONE (13:27)
[2020-10-11] MEDS ORDERED: ETOMIDATE 20 MG/10 ML VIAL IV ONE (13:27)
[2020-10-11] MEDS ORDERED: PHENYLEPHRINE 1 MG/10 ML SYRINGE IV ONE (13:27)
[2020-10-11 16:20] VITALS: BP 104/67
== END 2020-10-11 17:10 | disposition home or self-care (01) | DRG 394 ==
LOC: N.ED 19:10 → N.EDINP 21:34 → SUATTDRO 21:34 → N.5E 23:28
PROVIDERS: ADMIT Internal Medicine; ATTEND Emergency Medicine
PROC: COLONBX (2020-10-11 11:35)

== ENCOUNTER 2021-03-29 10:20 | Observation (INO) ==
[2021-03-29 10:45] LABS: Basophils % 0.2 % (0.0-0.8); Hematocrit 32.3 VOL% (35.7-47.0); Hemoglobin 10.2 GM/DL (12.0-16.0); Immature Granulocytes % 0.4 %; Immature Granulocytes Absolute 0.02 #; Lymphocytes # 0.4 10*3/uL (1.4-4.0); Lymphocytes % 7.6 % (21.3-54.2); Mean Corpuscular HGB Conc 31.6 GM/DL (32-36); Mean Corpuscular Volume 83.7 FL (87-102); Mean Platelet Volume 9.5 FL (9.6-12.0); Monocytes % 8.2 % (1.7-12.7); Neutrophils % 83.6 % (38.7-73.9); Platelet Count 220 T/CUMM (130-400); Red Blood Count 3.86 MC/CUMM (3.8-5.5); Red Cell Distribution Width 17.8 % (9.3-17.3); White Blood Count 5.4 T/CUMM (4-12)
[2021-03-29] MEDS ORDERED: ALBUTEROL NEB SOLN 5 MG/ML 20 ML/BOTTLE CONT NEB STA (10:45)
[2021-03-29] MEDS ORDERED: methylPREDNISolone SOD SUC 125 MG/2 ML VIAL IV STA (10:45)
[2021-03-29 11:09] LABS: Albumin 3.5 G/DL (3.4-5.0); Bilirubin,Total 0.4 MG/DL (0.20-1.00); Calcium 8.9 MG/DL (8.5-10.1); Osmolality,Calculated 272.1 MOS/KG (273-304); Potassium 4.1 MMOL/L (3.5-5.1)
[2021-03-29 11:25] LABS: ABG Base Excess 3.8 MMOL/L (-2.5-2.5); ABG HCO3 27.9 MMOL/L (20-26); ABG Oxygen Saturation 99.6 % (95-100); ABG PCO2 46.7 MM HG (35-48); ABG PH 7.404 (7.35-7.45); ABG TCO2 26.6 MMOL/L (23-27)
[2021-03-29] MEDS ORDERED: FUROSEMIDE 40 MG/4 ML VIAL IV STA (11:30)
[2021-03-29 11:57] LABS: Bacteria,Urine Occasional /HPF (Few); Bilirubin,Urine Negative (Negative); Blood, Urine Negative (Negative); Glucose,Urine (UA) Negative (Negative); Hyaline Casts,Urine 23 /LPF (0-3); Ketones,Urine Negative (Negative); Mucus,Urine Occasional /LPF (Occasional); Nitrite,Urine Negative (Negative); Protein,Urine Negative; RBC,Urine 2 /HPF (0-4); Squamous Epithelial Cell,Urine Few /HPF (0-10); Urine Appearance CLEAR (Clear); Urine Color Yellow (Yellow); Urine Specific Gravity 1.008 (1.001-1.035); Urine Urobilinogen < 2.0 EU/DL (0.2-1.0)
[2021-03-29 12:10] LABS: Barbiturates Screen,Urine Negative (Negative); Benzodiazepines Screen,Urine Negative (Negative); Cannabinoid Screen,Urine Negative (Negative); Opiate Screen,Urine Negative (Negative); Phencyclidine Screen,Urine Negative (Negative)
[2021-03-29] MEDS ORDERED: GLUCAGON 1 MG VIAL IM PRN (13:20)
[2021-03-29] MEDS ORDERED: NITROGLYCERIN SL 0.4 MG TABLET SL PRN (13:22)
[2021-03-29] MEDS ORDERED: ALBUTEROL/IPRATROPIUM 3 ML NEB RESP TX PRN (13:22)
[2021-03-29] MEDS ORDERED: DIGOXIN 0.125 MG TABLET PO PRN (13:22)
[2021-03-29] MEDS ORDERED: SIMETHICONE CHEW 125 MG TABLET PO PRN (13:32)
[2021-03-29] MEDS ORDERED: MAGNESIUM SULF RIDER 2 GM/50 ML PREMIX IV PRN (13:32)
[2021-03-29] MEDS ORDERED: MAGNESIUM SULF RIDER 4 GM/100 ML PREMIX IV PRN (13:32)
[2021-03-29] MEDS ORDERED: ACETAMINOPHEN 325 MG TABLET PO PRN (13:32)
[2021-03-29] MEDS ORDERED: CALCIUM CARBONATE CHEW 500 MG TABLET PO PRN (13:32)
[2021-03-29] MEDS: SPIRONOLACTONE 25 MG TABLET PO SCH (13:44)
[2021-03-29] MEDS: ATORVASTATIN 40 MG TABLET PO SCH (13:47)
[2021-03-29] MEDS: AMIODARONE 200 MG TABLET PO SCH (13:47)
[2021-03-29] MEDS: FERROUS SULFATE 325 MG TABLET PO SCH (13:47)
[2021-03-29] MEDS ORDERED: ENOXAPARIN 40 MG/0.4 ML SYRINGE SUBCUT SCH (14:00)
[2021-03-29] MEDS ORDERED: DEXTROSE 50% 25 GM/50 ML SYRINGE IV PRN (14:35)
[2021-03-29] MEDS: ASPIRIN CHEW 81 MG TABLET PO SCH (14:59)
[2021-03-29] MEDS: FUROSEMIDE 40 MG/4 ML VIAL IV SCH (16:22)
[2021-03-29] MEDS: RANOLAZINE 500 MG TABLET PO SCH (20:59)
[2021-03-29] MEDS: DOCUSATE SODIUM 100 MG CAPSULE PO SCH (20:59)
[2021-03-29] MEDS: PANTOPRAZOLE 40 MG TABLET PO SCH (20:59)
[2021-03-29] MEDS: MAGNESIUM OXIDE 400 MG TABLET PO SCH (20:59)
[2021-03-29] MEDS ORDERED: ISOSORBIDE MONONITRATE 60 MG TABLET PO SCH (21:00)
[2021-03-30 06:01] LABS: Hematocrit 28.8 VOL% (35.7-47.0); Hemoglobin 9.4 GM/DL (12.0-16.0); Immature Granulocytes % 0.2 %; Immature Granulocytes Absolute 0.01 #; Lymphocytes # 0.4 10*3/uL (1.4-4.0); Lymphocytes % 5.9 % (21.3-54.2); Mean Corpuscular HGB Conc 32.6 GM/DL (32-36); Mean Corpuscular Volume 80.9 FL (87-102); Mean Platelet Volume 9.5 FL (9.6-12.0); Monocytes % 9.1 % (1.7-12.7); Neutrophils % 84.8 % (38.7-73.9); Platelet Count 213 T/CUMM (130-400); Red Blood Count 3.56 MC/CUMM (3.8-5.5); Red Cell Distribution Width 17.2 % (9.3-17.3); White Blood Count 6.3 T/CUMM (4-12)
[2021-03-30 06:20] LABS: Albumin 3.3 G/DL (3.4-5.0); Bilirubin,Total 0.7 MG/DL (0.20-1.00); Calcium 9.3 MG/DL (8.5-10.1); Potassium 4.4 MMOL/L (3.5-5.1); Total Protein 6.2 G/DL (6.4-8.2)
[2021-03-30 08:13] VITALS: BP 110/55
[2021-03-30] MEDS: RANOLAZINE 500 MG TABLET PO SCH (08:50)
[2021-03-30] MEDS: MAGNESIUM OXIDE 400 MG TABLET PO SCH (08:50)
[2021-03-30] MEDS: ATORVASTATIN 40 MG TABLET PO SCH (08:50)
[2021-03-30] MEDS: DOCUSATE SODIUM 100 MG CAPSULE PO SCH (08:50)
[2021-03-30] MEDS: AMIODARONE 200 MG TABLET PO SCH (08:50)
[2021-03-30] MEDS: ASPIRIN CHEW 81 MG TABLET PO SCH (08:51)
[2021-03-30] MEDS: PANTOPRAZOLE 40 MG TABLET PO SCH (08:51)
[2021-03-30] MEDS: FERROUS SULFATE 325 MG TABLET PO SCH (08:51)
[2021-03-30] MEDS: SPIRONOLACTONE 25 MG TABLET PO SCH (08:51)
[2021-03-30] MEDS: FUROSEMIDE 40 MG/4 ML VIAL IV SCH (08:56)
== END 2021-03-30 12:23 | disposition home or self-care (01) ==
LOC: EDUNIT# → EDBD → N.EDINP 10:20 → N.ED 10:20 → N.TELES 15:09
PROVIDERS: ADMIT Internal Medicine; ATTEND Internal Medicine

== ENCOUNTER 2021-05-05 22:24 | Inpatient (IN) ==
[2021-05-05] MEDS ORDERED: methylPREDNISolone SOD SUC 125 MG/2 ML VIAL IV STA (22:45)
[2021-05-05] MEDS ORDERED: VANCOMYCIN INJ 750 MG in SODIUM CHLORIDE 0.9% 250 ML IV STA ×2 (22:45→23:47)
[2021-05-05] MEDS ORDERED: ONDANSETRON 4 MG/2 ML VIAL IV STA (22:45)
[2021-05-05] MEDS ORDERED: ALBUTEROL NEB SOLN 5 MG/ML 20 ML/BOTTLE CONT NEB SCH (23:00)
[2021-05-05 23:19] LABS: Basophils % 0.2 % (0.0-0.8); Hematocrit 27.8 VOL% (35.7-47.0); Hemoglobin 9.1 GM/DL (12.0-16.0); Immature Granulocytes % 0.4 %; Immature Granulocytes Absolute 0.02 #; Lymphocytes # 0.4 10*3/uL (1.4-4.0); Mean Corpuscular HGB Conc 32.7 GM/DL (32-36); Mean Corpuscular Volume 80.1 FL (87-102); Mean Platelet Volume 10.8 FL (9.6-12.0); Monocytes % 6.4 % (1.7-12.7); Platelet Count 197 T/CUMM (130-400); Red Blood Count 3.47 MC/CUMM (3.8-5.5); Red Cell Distribution Width 15.8 % (9.3-17.3); White Blood Count 5.2 T/CUMM (4-12)
[2021-05-05 23:24] LABS: ABG Base Excess 2.4 MMOL/L (-2.5-2.5); ABG HCO3 26.4 MMOL/L (20-26); ABG Oxygen Saturation 88.6 % (95-100); ABG PCO2 42.6 MM HG (35-48); ABG PH 7.412 (7.35-7.45); ABG PO2 60.2 MM HG (80-95); ABG TCO2 25.3 MMOL/L (23-27)
[2021-05-05 23:36] LABS: INR 1.1; PT Patient Result 12.1 SECS (10.5-12.0)
[2021-05-05] MEDS ORDERED: CLINDAMYCIN INJ 900 MG/50 ML PREMIX IV STA (23:41)
[2021-05-05 23:43] LABS: Albumin 3.2 G/DL (3.4-5.0); Bilirubin,Total 0.6 MG/DL (0.20-1.00); Calcium 9.2 MG/DL (8.5-10.1); Osmolality,Calculated 260.1 MOS/KG (273-304); Potassium 4.9 MMOL/L (3.5-5.1); Total Protein 7.4 G/DL (6.4-8.2)
[2021-05-06] MEDS ORDERED: GLUCAGON 1 MG VIAL IM PRN (00:27)
[2021-05-06] MEDS ORDERED: MAGNESIUM SULF RIDER 4 GM/100 ML PREMIX IV PRN (00:27)
[2021-05-06] MEDS ORDERED: MAGNESIUM SULF RIDER 2 GM/50 ML PREMIX IV PRN (00:27)
[2021-05-06] MEDS ORDERED: ACETAMINOPHEN 325 MG TABLET PO PRN (00:36)
[2021-05-06] MEDS ORDERED: ONDANSETRON 4 MG/2 ML VIAL IV PRN (00:36)
[2021-05-06] MEDS ORDERED: SIMETHICONE CHEW 125 MG TABLET PO PRN (00:36)
[2021-05-06] MEDS ORDERED: hydrALAZINE 20 MG/1 ML VIAL IV PRN (00:36)
[2021-05-06] MEDS ORDERED: DEXTROSE 50% 25 GM/50 ML SYRINGE IV PRN (00:48)
[2021-05-06] MEDS ORDERED: FUROSEMIDE 40 MG/4 ML VIAL IV STA (00:54)
[2021-05-06] MEDS ORDERED: ENOXAPARIN 40 MG/0.4 ML SYRINGE SUBCUT SCH (01:00)
[2021-05-06] MEDS ORDERED: SODIUM CHLORIDE 0.9% 1,000 ML IV SCH (01:00)
[2021-05-06 01:08] LABS: Bacteria,Urine Occasional /HPF (Few); Bilirubin,Urine Negative (Negative); Blood, Urine Negative (Negative); Glucose,Urine (UA) Negative (Negative); Ketones,Urine Negative (Negative); Mucus,Urine Occasional /LPF (Occasional); Nitrite,Urine Negative (Negative); Protein,Urine 30 MG/DL; RBC,Urine <1 /HPF (0-4); Squamous Epithelial Cell,Urine Occasional /HPF (0-10); Urine Appearance CLEAR (Clear); Urine Specific Gravity 1.015 (1.001-1.035); Urine Urobilinogen < 2.0 EU/DL (<2.0)
[2021-05-06 01:09] LABS: Urine Color Yellow (Yellow)
[2021-05-06] MEDS ORDERED: LEVOFLOXACIN INJ 750 MG/150 ML PREMIX IV SCH (02:00)
[2021-05-06] MEDS: ALBUTEROL/IPRATROPIUM 3 ML NEB RESP TX SCH ×5 (02:11→20:00)
[2021-05-06] MEDS: FLUTICASONE/SALMETEROL 250-50 DISKUS 14 DOSE INH SCH ×2 (02:31→08:09)
[2021-05-06] MEDS ORDERED: ALBUTEROL/IPRATROPIUM 3 ML NEB RESP TX STA (03:51)
[2021-05-06] MEDS ORDERED: AZTREONAM 2,000 MG in SODIUM CHLORIDE 0.9% 100 ML IV SCH (04:00)
[2021-05-06 04:43] LABS: ABG HCO3 24.1 MMOL/L (20-26); ABG Oxygen Saturation 98.7 % (95-100); ABG PCO2 42.1 MM HG (35-48); ABG PH 7.376 (7.35-7.45); ABG PO2 171.6 MM HG (80-95); ABG TCO2 25.4 MMOL/L (23-27)
[2021-05-06 04:46] LABS: Hematocrit 25.8 VOL% (35.7-47.0); Hemoglobin 8.2 GM/DL (12.0-16.0); Immature Granulocytes % 0.4 %; Immature Granulocytes Absolute 0.02 #; Lymphocytes # 0.2 10*3/uL (1.4-4.0); Lymphocytes % 3.8 % (21.3-54.2); Mean Corpuscular HGB Conc 31.8 GM/DL (32-36); Mean Corpuscular Volume 82.4 FL (87-102); Mean Platelet Volume 10.9 FL (9.6-12.0); Monocytes % 2.5 % (1.7-12.7); Neutrophils % 93.3 % (38.7-73.9); Platelet Count 184 T/CUMM (130-400); Red Blood Count 3.13 MC/CUMM (3.8-5.5); Red Cell Distribution Width 16.2 % (9.3-17.3); White Blood Count 4.5 T/CUMM (4-12)
[2021-05-06 05:15] LABS: Anisocytosis 1+; Band Neutrophils 17 % (0-10); Lymphocytes 4 % (20-55); Platelet Estimate Normal; Segmented Neutrophils 77 % (50-85); Total Cells Counted 100
[2021-05-06 05:16] LABS: Burr Cells Few; Ovalocytes Few
[2021-05-06 05:20] LABS: Osmolality,Calculated 262.2 MOS/KG (273-304); Risk Ratio 3.08; VLDL Cholesterol 15.2 MG/DL
[2021-05-06 05:25] LABS: Potassium 6.6 MMOL/L (3.5-5.1)
[2021-05-06 06:10] LABS: Albumin 2.6 G/DL (3.4-5.0); Bilirubin,Total 0.5 MG/DL (0.20-1.00); Calcium 7.9 MG/DL (8.5-10.1); Osmolality,Calculated 270.5 MOS/KG (273-304); Potassium 4.1 MMOL/L (3.5-5.1); Total Protein 6.4 G/DL (6.4-8.2)
[2021-05-06] MEDS ORDERED: methylPREDNISolone SOD SUC 40 MG/1 ML VIAL IV SCH ×2 (08:00→17:00)
[2021-05-06] MEDS: DOCUSATE SODIUM 100 MG CAPSULE PO SCH ×2 (08:08→21:45)
[2021-05-06] MEDS: PANTOPRAZOLE 40 MG TABLET PO SCH (08:08)
[2021-05-06] MEDS ORDERED: FUROSEMIDE 100 MG/10 ML VIAL IV ONE (08:22)
[2021-05-06] MEDS ORDERED: FUROSEMIDE 40 MG/4 ML VIAL IV SCH ×2 (09:00→16:00)
[2021-05-06] MEDS ORDERED: ALBUTEROL 2.5 MG/3 ML NEB RESP TX PRN (09:39)
[2021-05-06] MEDS ORDERED: NITROGLYCERIN SL 0.4 MG TABLET SL PRN (11:05)
[2021-05-06] MEDS ORDERED: LORazepam 2 MG/1 ML VIAL IV ONE ×2 (11:40→18:14)
[2021-05-06] MEDS: CEFEPIME 1,000 MG in SODIUM CHLORIDE 0.9% 100 ML IV SCH ×2 (11:51→17:00)
[2021-05-06] MEDS: SPIRONOLACTONE 25 MG TABLET PO SCH ×2 (11:52→13:25)
[2021-05-06] MEDS: ACETYLCYSTEINE 20% 800 MG/4 ML VIAL RESP TX SCH (14:10)
[2021-05-06 14:22] LABS: ABG Base Excess -0.5 MMOL/L (-2.5-2.5); ABG Oxygen Saturation 99.2 % (95-100); ABG PCO2 47.8 MM HG (35-48); ABG PH 7.336 (7.35-7.45); ABG TCO2 23.8 MMOL/L (23-27)
[2021-05-06] MEDS ORDERED: guaiFENesin 200 MG/10 ML UDCUP PO PRN (14:39)
[2021-05-06] MEDS: ENOXAPARIN 60 MG/0.6 ML SYRINGE SUBCUT SCH (15:17)
[2021-05-06] MEDS: FUROSEMIDE 100 MG/10 ML VIAL IV SCH (15:18)
[2021-05-06] MEDS ORDERED: MORPHINE 2 MG/1 ML SYRINGE ONE (17:54)
[2021-05-06] MEDS ORDERED: MORPHINE 2 MG/1 ML SYRINGE IV ONE (17:55)
[2021-05-06] MEDS ORDERED: FUROSEMIDE 40 MG/4 ML VIAL IV ONE (18:03)
[2021-05-06 18:30] LABS: ABG Base Excess -1.6 MMOL/L (-2.5-2.5); ABG Oxygen Saturation 90.7 % (95-100); ABG PCO2 59.7 MM HG (35-48); ABG PH 7.254 (7.35-7.45); ABG PO2 74.7 MM HG (80-95); ABG TCO2 24.8 MMOL/L (23-27); Allen Test Positive; Pt O2 Delivery Device BIPAP
[2021-05-06 19:23] LABS: ABG Base Excess -1.4 MMOL/L (-2.5-2.5); ABG HCO3 23.1 MMOL/L (20-26); ABG Oxygen Saturation 91.2 % (95-100); ABG PCO2 56.3 MM HG (35-48); ABG PH 7.272 (7.35-7.45); ABG PO2 76.2 MM HG (80-95); ABG TCO2 24.5 MMOL/L (23-27); Allen Test Positive; Pt O2 Delivery Device Other
[2021-05-06] MEDS ORDERED: MIDAZOLAM 10 MG/2 ML VIAL ONE (19:34)
[2021-05-06] MEDS ORDERED: ETOMIDATE 20 MG/10 ML VIAL IV ONE ×2 (19:34→19:40)
[2021-05-06] MEDS ORDERED: MIDAZOLAM 2 MG/2 ML VIAL IV ONE ×2 (19:40)
[2021-05-06] MEDS: ARFORMOTEROL 15 MCG/2 ML NEB RESP TX SCH ×2 (20:00→20:04)
[2021-05-06 20:50] LABS: ABG Base Excess -0.7 MMOL/L (-2.5-2.5); ABG HCO3 23.7 MMOL/L (20-26); ABG Oxygen Saturation 84.6 % (95-100); ABG PCO2 51.5 MM HG (35-48); ABG PH 7.312 (7.35-7.45); ABG PO2 58.1 MM HG (80-95); ABG TCO2 24.3 MMOL/L (23-27); Allen Test Positive; Pt O2 Delivery Device Ventilator
[2021-05-06] MEDS ORDERED: ISOSORBIDE MONONITRATE 60 MG TABLET PO SCH (21:00)
[2021-05-06] MEDS ORDERED: THEOPHYLLINE ER (24 HR) 300 MG CAPSULE PO SCH (21:00)
[2021-05-06 21:39] LABS: Calcium 8.4 MG/DL (8.5-10.1); Osmolality,Calculated 276.2 MOS/KG (273-304); Potassium 3.9 MMOL/L (3.5-5.1)
[2021-05-06] MEDS: RANOLAZINE 500 MG TABLET PO SCH (21:45)
[2021-05-06 22:05] LABS: ABG Base Excess -0.1 MMOL/L (-2.5-2.5); ABG HCO3 24.3 MMOL/L (20-26); ABG Oxygen Saturation 92.8 % (95-100); ABG PCO2 49.3 MM HG (35-48); ABG PH 7.332 (7.35-7.45); ABG PO2 74.2 MM HG (80-95); ABG TCO2 24.6 MMOL/L (23-27)
[2021-05-06] MEDS: methylPREDNISolone SOD SUC 40 MG/1 ML VIAL IV SCH (22:20)
[2021-05-06] MEDS ORDERED: LACTATED RINGERS 1,000 ML IV ONE (22:32)
[2021-05-06] MEDS: NOREPINEPHRINE 8 MG in SODIUM CHLORIDE 0.9% 242 ML IV PRN (23:35)
[2021-05-07] MEDS: ACETYLCYSTEINE 20% 800 MG/4 ML VIAL RESP TX SCH ×2 (00:31→07:03)
[2021-05-07] MEDS: ALBUTEROL/IPRATROPIUM 3 ML NEB RESP TX SCH ×4 (00:31→19:22)
[2021-05-07] MEDS: VANCOMYCIN INJ 750 MG in SODIUM CHLORIDE 0.9% 250 ML IV SCH (00:44)
[2021-05-07] MEDS: CEFEPIME 1,000 MG in SODIUM CHLORIDE 0.9% 100 ML IV SCH ×3 (01:45→16:48)
[2021-05-07] MEDS: MIDAZOLAM 100 MG in SODIUM CHLORIDE 0.9% 80 ML IV PRN ×2 (01:59→23:51)
[2021-05-07 04:38] LABS: ABG Base Excess 0.7 MMOL/L (-2.5-2.5); ABG HCO3 25.1 MMOL/L (20-26); ABG Oxygen Saturation 97.1 % (95-100); ABG PCO2 43.9 MM HG (35-48); ABG PO2 98.5 MM HG (80-95); ABG TCO2 24.3 MMOL/L (23-27)
[2021-05-07 05:01] LABS: Hematocrit 28.9 VOL% (35.7-47.0); Immature Granulocytes % 0.3 %; Immature Granulocytes Absolute 0.02 #; Lymphocytes # 0.3 10*3/uL (1.4-4.0); Lymphocytes % 5.4 % (21.3-54.2); Mean Corpuscular HGB Conc 31.1 GM/DL (32-36); Mean Platelet Volume 10.5 FL (9.6-12.0); Monocytes % 4.9 % (1.7-12.7); Neutrophils % 89.4 % (38.7-73.9); Platelet Count 170 T/CUMM (130-400); Red Blood Count 3.57 MC/CUMM (3.8-5.5); Red Cell Distribution Width 15.7 % (9.3-17.3); White Blood Count 6.3 T/CUMM (4-12)
[2021-05-07 05:14] LABS: Calcium 8.8 MG/DL (8.5-10.1); Osmolality,Calculated 270.7 MOS/KG (273-304); Potassium 3.9 MMOL/L (3.5-5.1)
[2021-05-07] MEDS: methylPREDNISolone SOD SUC 40 MG/1 ML VIAL IV SCH ×3 (05:53→16:48)
[2021-05-07] MEDS: ARFORMOTEROL 15 MCG/2 ML NEB RESP TX SCH ×2 (07:03→19:22)
[2021-05-07] MEDS ORDERED: ASPIRIN EC 81 MG TABLET PO SCH (09:00)
[2021-05-07] MEDS: ASPIRIN CHEW 81 MG TABLET PO SCH (11:00)
[2021-05-07] MEDS: ENOXAPARIN 60 MG/0.6 ML SYRINGE SUBCUT SCH ×2 (11:00→20:15)
[2021-05-07] MEDS: DOCUSATE SODIUM 100 MG/10 ML UDCUP PER TUBE SCH ×2 (11:00→20:16)
[2021-05-07] MEDS: AMIODARONE 200 MG TABLET PO SCH (11:00)
[2021-05-07] MEDS: FUROSEMIDE 100 MG/10 ML VIAL IV SCH ×2 (11:00→19:16)
[2021-05-07] MEDS: PANTOPRAZOLE 40 MG VIAL IV SCH (11:00)
[2021-05-07] MEDS: FERROUS SULFATE 325 MG TABLET PO SCH (11:00)
[2021-05-07] MEDS: RANOLAZINE 500 MG TABLET PO SCH ×2 (11:00→20:16)
[2021-05-07] MEDS ORDERED: THEOPHYLLINE 5.33 MG/ML 30 ML/BOTTLE PER TUBE SCH (12:00)
[2021-05-07] MEDS: SPIRONOLACTONE 25 MG TABLET PO SCH (12:41)
[2021-05-07] MEDS: DOCUSATE SODIUM 100 MG CAPSULE PO SCH (13:00)
[2021-05-07] MEDS: PANTOPRAZOLE 40 MG TABLET PO SCH (13:00)
[2021-05-07 13:54] LABS: Hypochromia 3+; Lymphocytes 5 % (20-55); Segmented Neutrophils 94 % (50-85); Total Cells Counted 100
[2021-05-07 13:55] LABS: Ovalocytes Few; Platelet Estimate Normal; Target Cells Few
[2021-05-07] MEDS: THEOPHYLLINE 5.33 MG/ML 30 ML/BOTTLE PER TUBE SCH (19:22)
[2021-05-07] MEDS: DORNASE ALFA 2.5 MG/2.5 ML VIAL RESP TX SCH (19:22)
[2021-05-07] MEDS: ATORVASTATIN 40 MG TABLET PO SCH (20:16)
[2021-05-07] MEDS ORDERED: FUROSEMIDE 100 MG/10 ML VIAL IV SCH (21:00)
[2021-05-07] MEDS: fentaNYL INJ 1,250 MCG in SODIUM CHLORIDE 0.9% 225 ML IV SCH (22:02)
[2021-05-08] MEDS: methylPREDNISolone SOD SUC 40 MG/1 ML VIAL IV SCH ×5 (00:31→21:02)
[2021-05-08] MEDS: CEFEPIME 1,000 MG in SODIUM CHLORIDE 0.9% 100 ML IV SCH ×3 (00:32→21:17)
[2021-05-08] MEDS: VANCOMYCIN INJ 750 MG in SODIUM CHLORIDE 0.9% 250 ML IV SCH (00:32)
[2021-05-08] MEDS: ALBUTEROL/IPRATROPIUM 3 ML NEB RESP TX SCH ×4 (01:01→19:15)
[2021-05-08 03:32] LABS: Hematocrit 25.9 VOL% (35.7-47.0); Hemoglobin 8.5 GM/DL (12.0-16.0); Immature Granulocytes Absolute 0.06 #; Lymphocytes # 0.2 10*3/uL (1.4-4.0); Lymphocytes % 2.9 % (21.3-54.2); Mean Corpuscular HGB Conc 32.8 GM/DL (32-36); Mean Corpuscular Volume 79.2 FL (87-102); Mean Platelet Volume 10.5 FL (9.6-12.0); Monocytes % 3.8 % (1.7-12.7); NRBC # 0.03 10*3/uL; Neutrophils % 92.3 % (38.7-73.9); Platelet Count 158 T/CUMM (130-400); Red Blood Count 3.27 MC/CUMM (3.8-5.5); Red Cell Distribution Width 15.6 % (9.3-17.3); White Blood Count 5.8 T/CUMM (4-12)
[2021-05-08 03:48] LABS: Albumin 2.2 G/DL (3.4-5.0); Bilirubin,Total 0.6 MG/DL (0.20-1.00); Calcium 8.3 MG/DL (8.5-10.1); Osmolality,Calculated 292.5 MOS/KG (273-304); Total Protein 6.1 G/DL (6.4-8.2)
[2021-05-08] MEDS: THEOPHYLLINE 5.33 MG/ML 30 ML/BOTTLE PER TUBE SCH ×3 (04:09→21:01)
[2021-05-08 04:59] LABS: ABG Base Excess -1.9 MMOL/L (-2.5-2.5); ABG HCO3 22.8 MMOL/L (20-26); ABG Oxygen Saturation 97.6 % (95-100); ABG PCO2 41.8 MM HG (35-48); ABG PH 7.356 (7.35-7.45); ABG TCO2 22.6 MMOL/L (23-27)
[2021-05-08] MEDS: ARFORMOTEROL 15 MCG/2 ML NEB RESP TX SCH ×2 (06:54→19:30)
[2021-05-08] MEDS: DORNASE ALFA 2.5 MG/2.5 ML VIAL RESP TX SCH ×2 (06:55→19:40)
[2021-05-08 07:04] LABS: Lymphocytes 6 % (20-55); Segmented Neutrophils 90 % (50-85); Total Cells Counted 100
[2021-05-08 07:05] LABS: Hypochromia 2+
[2021-05-08 07:06] LABS: Polychromasia Slight; Target Cells Few
[2021-05-08 07:07] LABS: Ovalocytes Few; Platelet Estimate Adequate
[2021-05-08] MEDS: SPIRONOLACTONE 25 MG TABLET PO SCH (08:43)
[2021-05-08] MEDS: AMIODARONE 200 MG TABLET PO SCH (08:43)
[2021-05-08] MEDS: FERROUS SULFATE 325 MG TABLET PO SCH (08:43)
[2021-05-08] MEDS: ASPIRIN CHEW 81 MG TABLET PO SCH (08:43)
[2021-05-08] MEDS: DOCUSATE SODIUM 100 MG/10 ML UDCUP PER TUBE SCH ×2 (08:43→20:57)
[2021-05-08] MEDS: RANOLAZINE 500 MG TABLET PO SCH ×2 (08:44→21:00)
[2021-05-08] MEDS: PANTOPRAZOLE 40 MG VIAL IV SCH (08:44)
[2021-05-08] MEDS ORDERED: ENOXAPARIN 60 MG/0.6 ML SYRINGE SUBCUT SCH ×2 (09:00→21:00)
[2021-05-08] MEDS: NOREPINEPHRINE 8 MG in SODIUM CHLORIDE 0.9% 242 ML IV PRN (10:58)
[2021-05-08] MEDS ORDERED: DEXTROSE 50% 25 GM/50 ML VIAL IV PRN (12:36)
[2021-05-08] MEDS: INSULIN LISPRO 100 UNIT/ML SUBCUT SCH (17:03)
[2021-05-08] MEDS: MIDAZOLAM 100 MG in SODIUM CHLORIDE 0.9% 80 ML IV PRN (20:50)
[2021-05-08] MEDS: ATORVASTATIN 40 MG TABLET PO SCH (21:00)
[2021-05-08] MEDS: fentaNYL INJ 1,250 MCG in SODIUM CHLORIDE 0.9% 225 ML IV SCH (21:17)
[2021-05-09] MEDS: INSULIN LISPRO 100 UNIT/ML SUBCUT SCH ×4 (00:10→19:19)
[2021-05-09] MEDS: ALBUTEROL/IPRATROPIUM 3 ML NEB RESP TX SCH ×4 (01:23→19:42)
[2021-05-09 05:00] LABS: ABG HCO3 21.8 MMOL/L (20-26); ABG Oxygen Saturation 91.6 % (95-100); ABG PCO2 51.5 MM HG (35-48); ABG PH 7.278 (7.35-7.45); ABG PO2 74.3 MM HG (80-95); ABG TCO2 22.6 MMOL/L (23-27)
[2021-05-09] MEDS: methylPREDNISolone SOD SUC 40 MG/1 ML VIAL IV SCH (05:12)
[2021-05-09] MEDS: THEOPHYLLINE 5.33 MG/ML 30 ML/BOTTLE PER TUBE SCH ×3 (05:13→22:20)
[2021-05-09 06:27] LABS: Hematocrit 26.6 VOL% (35.7-47.0); Hemoglobin 8.7 GM/DL (12.0-16.0); Immature Granulocytes % 1.4 %; Immature Granulocytes Absolute 0.09 #; Lymphocytes # 0.2 10*3/uL (1.4-4.0); Lymphocytes % 3.3 % (21.3-54.2); Mean Corpuscular HGB Conc 32.7 GM/DL (32-36); Mean Corpuscular Volume 80.1 FL (87-102); Mean Platelet Volume 10.3 FL (9.6-12.0); Monocytes % 3.5 % (1.7-12.7); NRBC # 0.05 10*3/uL; Neutrophils % 91.8 % (38.7-73.9); Platelet Count 168 T/CUMM (130-400); Red Blood Count 3.32 MC/CUMM (3.8-5.5); Red Cell Distribution Width 16.1 % (9.3-17.3); White Blood Count 6.6 T/CUMM (4-12)
[2021-05-09 06:45] LABS: INR 1.2; PT Patient Result 13.2 SECS (10.5-12.0)
[2021-05-09 06:51] LABS: % Iron Saturation 11.4 % (18-50); Calcium 9.1 MG/DL (8.5-10.1); Ferritin 1208.8 ng/mL (8-252); Osmolality,Calculated 302.4 MOS/KG (273-304); Potassium 4.1 MMOL/L (3.5-5.1)
[2021-05-09 06:51] LABS: Albumin 2.1 G/DL (3.4-5.0)
[2021-05-09 06:55] LABS: Band Neutrophils 3 % (0-10); Hypochromia 1+; Lymphocytes 2 % (20-55); Microcytosis 1+; Platelet Estimate Adequate; Segmented Neutrophils 92 % (50-85); Total Cells Counted 100
[2021-05-09] MEDS: ARFORMOTEROL 15 MCG/2 ML NEB RESP TX SCH ×2 (07:25→19:42)
[2021-05-09] MEDS: DORNASE ALFA 2.5 MG/2.5 ML VIAL RESP TX SCH ×2 (07:35→19:42)
[2021-05-09] MEDS: methylPREDNISolone SOD SUC 125 MG/2 ML VIAL IV SCH ×2 (09:05→22:50)
[2021-05-09] MEDS: CEFEPIME 1,000 MG in SODIUM CHLORIDE 0.9% 100 ML IV SCH ×2 (09:05→22:50)
[2021-05-09] MEDS: PANTOPRAZOLE 40 MG VIAL IV SCH (09:06)
[2021-05-09 09:44] VITALS: BP 112/68
[2021-05-09 10:47] LABS: Glucose,Pleural Fluid 121 MG/DL; LDH,Body Fluid 194 U/L
[2021-05-09 10:57] LABS: Lymphocytes,Pleural Fluid 86 %; Monocytes,Pleural Fluid 7 %; Neutrophils,Pleural Fluid 7 %; RBC,Pleural Fluid 27304 T/CUMM
[2021-05-09] MEDS: ASPIRIN CHEW 81 MG TABLET PO SCH (11:05)
[2021-05-09] MEDS: DOCUSATE SODIUM 100 MG/10 ML UDCUP PER TUBE SCH ×2 (11:05→22:50)
[2021-05-09] MEDS: FERROUS SULFATE 325 MG TABLET PO SCH (11:06)
[2021-05-09] MEDS: AMIODARONE 200 MG TABLET PO SCH (11:06)
[2021-05-09] MEDS: RANOLAZINE 500 MG TABLET PO SCH ×2 (11:07→22:50)
[2021-05-09] MEDS ORDERED: fentaNYL INJ 1,250 MCG in SODIUM CHLORIDE 0.9% 225 ML IV PRN (12:00)
[2021-05-09] MEDS: MIDAZOLAM 100 MG in SODIUM CHLORIDE 0.9% 80 ML IV PRN (16:15)
[2021-05-09] MEDS: NOREPINEPHRINE 8 MG in SODIUM CHLORIDE 0.9% 242 ML IV PRN ×2 (16:30→20:20)
[2021-05-09] MEDS ORDERED: SODIUM CHLORIDE 0.9% 500 ML IV ONE ×2 (18:30→23:25)
[2021-05-09] MEDS: PHENYLEPHRINE DRIP 40 MG/250 ML PREMIX IV PRN (21:20)
[2021-05-09] MEDS: ATORVASTATIN 40 MG TABLET PO SCH (23:22)
[2021-05-09 23:47] LABS: Basophils % 0.3 % (0.0-0.8); Hematocrit 29.3 VOL% (35.7-47.0); Hemoglobin 9.2 GM/DL (12.0-16.0); Immature Granulocytes % 2.6 %; Immature Granulocytes Absolute 0.42 #; Lymphocytes # 0.4 10*3/uL (1.4-4.0); Lymphocytes % 2.5 % (21.3-54.2); Mean Corpuscular HGB Conc 31.4 GM/DL (32-36); Mean Corpuscular Volume 83.5 FL (87-102); Monocytes % 5.8 % (1.7-12.7); NRBC # 0.45 10*3/uL; Neutrophils % 88.8 % (38.7-73.9); Platelet Count 106 T/CUMM (130-400); Red Blood Count 3.51 MC/CUMM (3.8-5.5); Red Cell Distribution Width 16.7 % (9.3-17.3); White Blood Count 15.9 T/CUMM (4-12)
[2021-05-10 00:22] LABS: Albumin 1.8 G/DL (3.4-5.0); Bilirubin,Total 1.3 MG/DL (0.20-1.00); Calcium 8.2 MG/DL (8.5-10.1); Osmolality,Calculated 307.5 MOS/KG (273-304); Total Protein 5.6 G/DL (6.4-8.2)
[2021-05-10 00:27] LABS: Potassium 6.1 MMOL/L (3.5-5.1)
[2021-05-10] MEDS ORDERED: SODIUM POLYSTYRENE SULFATE 15 GM/60 ML BOTTLE PO ONE (00:46)
[2021-05-10] MEDS ORDERED: SODIUM BICARBONATE 50 MEQ/50 ML VIAL IV ONE ×4 (00:46→01:55)
[2021-05-10] MEDS: ALBUTEROL/IPRATROPIUM 3 ML NEB RESP TX SCH (01:12)
[2021-05-10 01:17] LABS: ABG Base Excess -7.4 MMOL/L (-2.5-2.5); ABG HCO3 18.2 MMOL/L (20-26); ABG Oxygen Saturation 88.3 % (95-100); ABG PO2 76.7 MM HG (80-95)
[2021-05-10 01:20] LABS: ABG PCO2 78.2 MM HG (35-48); ABG PH 7.089 (7.35-7.45)
[2021-05-10] MEDS: NOREPINEPHRINE 8 MG in SODIUM CHLORIDE 0.9% 242 ML IV PRN (01:30)
[2021-05-10] MEDS: INSULIN LISPRO 100 UNIT/ML SUBCUT SCH (01:42)
[2021-05-10] MEDS ORDERED: DOPamine 800 MG/250 ML PREMIX IV ONE (01:48)
[2021-05-10] MEDS ORDERED: DOPamine 800 MG/250 ML PREMIX IV PRN (01:50)
[2021-05-10] MEDS ORDERED: CALCIUM CHLORIDE 1,000 MG/10 ML SYRINGE IV ONE ×2 (01:55→02:01)
[2021-05-10] MEDS ORDERED: EPINEPHrine 1 MG/10 ML SYRINGE IV ONE (01:59)
[2021-05-10] MEDS ORDERED: EPINEPHrine 1 MG/10 ML SYRINGE ONE (02:01)
[2021-05-10] MEDS ORDERED: SODIUM BICARBONATE 50 MEQ/50 ML SYRINGE IV ONE (02:01)
[2021-05-10] MEDS ORDERED: EPINEPHrine 1 MG/ML VIAL ONE (02:01)
[2021-05-10] MEDS: PHENYLEPHRINE DRIP 40 MG/250 ML PREMIX IV PRN (02:01)
[2021-05-10] MEDS ORDERED: ATROPINE 1 MG/10 ML SYRINGE ONE (02:01)
[2021-05-10 04:10] LABS: Band Neutrophils 4 % (0-10); Lymphocytes 3 % (20-55); Microcytosis 1+; Nucleated Red Blood Cells 5 (0-5); Segmented Neutrophils 88 % (50-85); Target Cells Few; Total Cells Counted 100
[2021-05-10 04:11] LABS: Acanthocytes Few; Hypochromia 1+
[2021-05-10 04:12] LABS: Burr Cells Slight; Ovalocytes Slight; Platelet Estimate Decreased; Tear Drop Cells Slight
== END 2021-05-10 02:17 | disposition expired | DRG 208 ==
LOC: N.ED 22:24 → SUATTDRO 05-06 00:27 → N.EDINP 05-06 00:27 → N.5E 05-06 05:36 → N.ICU 05-06 18:03
PROVIDERS: ADMIT Internal Medicine; ATTEND Internal Medicine
PROC: IRTHORA (2021-05-09 09:25)